=== PATIENT | female | born 1955 | race Caucasian/White ===

== ENCOUNTER 2019-02-14 21:21 | Outpatient (REF) | payer OTHER, SELFPAY ==
[2019-02-14 21:31] LABS: HCT 43.2 % (36.0-46.0); HGB 14.3 g/dL (12.0-15.5); Mean Corp. HGB Concentration 33.1 g/dL (32.0-36.0); Mean Corpuscular Hemoglobin 31.6 pg (27.0-33.0); Mean Corpuscular Volume 95.6 fL (80-95); Mean Platelet Volume 10.1 fL (8.0-11.0); Platelet Count 338 x1000/uL (130-400); RBC 4.52 m/cumm (4.00-5.20); RBC Distribution Width 11.9 % (11.7-14.6); White Blood Cell Count 5.58 k/cumm (4.4-10.8)
[2019-02-14 21:53] LABS: ALT 36 U/L (12-78); AST 23 U/L (15-37); Albumin 4.3 g/dL (3.4-5.0); Alkaline Phosphatase 87 U/L (46-116); Anion Gap 10.3 mmol/L (3-11); BUN 27 mg/dL (7-18); Bilirubin, Total 0.4 mg/dL (0.2-1.0); CO2 27.7 mmol/L (21.0-32.0); CREATININE 0.74 mg/dL (0.55-1.02); Calcium 9.4 mg/dL (8.5-10.1); Chloride 99 mmol/L (98-107); Glucose 98 mg/dL (70-100); Potassium 4.3 mmol/L (3.5-5.1); Sodium 137 mmol/L (136-145); TSH (W/Ref FT4) 0.04 uIU/mL (0.358-3.74); Total Protein 7.4 g/dL (6.4-8.2)
[2019-02-14 22:24] LABS: FREE T4 1.27 ng/dL (0.76-1.46)
[2019-02-14 22:39] LABS: Cholesterol 261 mg/dL (50-200); HDL Cholesterol 67 mg/dL (40-60); LDL CHOLESTEROL 154 mg/dL (<100); Triglyceride 149 mg/dL (30-150)
== END 2019-02-14 21:41 ==
LOC: NCHCN 21:21
PROVIDERS: PCP Family Medicine; Visit Provider Family Medicine
DX: Z00.00 Encounter for general adult medical examination without abnormal findings (principal); E03.9 Hypothyroidism, unspecified; M32.9 Systemic lupus erythematosus, unspecified
CPT/HCPCS: 80053; 80061; 83721; 85027; 84439; 84443

== ENCOUNTER 2019-02-23 00:41 | Outpatient (CLI) | payer OTHER, SELFPAY ==
--- NOTE | 2019-02-23 08:13 | DI.MAMMO_ITS ---
SYMPTOM/DIAGNOSIS: SCREENING, Z12.31, [facility], Z00.00 MAMMOGRAMS: Mammograms were interpreted according to the usual protocol including computer analysis with CAD system, tomosynthesis and C view imaging. The breasts are of moderate density with fairly symmetrical distribution of fibroglandular tissue. No dominant mass or clumped microcalcification is identified in either breast. The current examination is compared with previous examinations including 02/2017 and there has been no gross interval change in appearance in comparison with the previous studies. CONCLUSION: No specific evidence of malignancy at this time. Routine screening examinations are suggested at yearly intervals in this age group according to the ACS/ACR guidelines. Category 1. Breast density, Category B. MQSA ASSESSMENT OF FINDINGS: Negative. Category 1. Patient will receive a letter notifying them of these results. BI-RADS category B. There are scattered areas of fibroglandular density.
--- NOTE | 2019-02-23 08:20 | DI.CTLCSR_ITS ---
SYMPTOM/DIAGNOSIS: PREVENTATIVE, Z00.00, H/O SMOKER, Z78.[address]: CT examination of the chest was performed utilizing low dose lung cancer screening protocol. Images obtained through the upper abdomen show a prior cholecystectomy and unremarkable appearance of visualized portions of the liver, spleen, pancreas, adrenals and kidneys. No mediastinal or hilar adenopathy. An incidental 15 mm. in diameter left axillary lymph node is noted which is nonspecific. Tracheobronchial tree appears intact. The lungs are clear except for an elongated, intrapulmonary nodule associated with the minor fissure on the right which measures about 6 mm. in diameter on transaxial imaging. No additional nodule identified. No calcifications seen. No pleural effusion. CONCLUSION: Pleural based, non calcified intrapulmonary nodule associated with minor fissure on the right. Category 3, probably benign, 6 month follow LDCT recommended.
== END 2019-02-23 01:01 ==
PROVIDERS: PCP Family Medicine; Visit Provider Family Medicine
DX: Z12.2 Encounter for screening for malignant neoplasm of respiratory organs (principal); Z00.00 Encounter for general adult medical examination without abnormal findings; Z87.891 Personal history of nicotine dependence; R91.1 Solitary pulmonary nodule; R59.0 Localized enlarged lymph nodes; Z12.31 Encounter for screening mammogram for malignant neoplasm of breast
CPT/HCPCS: 77063; 77067; G0297

== ENCOUNTER 2019-08-17 12:21 | Outpatient (REF) | payer OTHER, SELFPAY ==
[2019-08-17 21:28] LABS: HCT 42.9 % (36.0-46.0); HGB 14.6 g/dL (12.0-15.5); Mean Corpuscular Hemoglobin 31.8 pg (27.0-33.0); Mean Corpuscular Volume 93.5 fL (80-95); Mean Platelet Volume 9.8 fL (8.0-11.0); Platelet Count 416 x1000/uL (130-400); RBC 4.59 m/cumm (4.00-5.20); RBC Distribution Width 11.9 % (11.7-14.6); White Blood Cell Count 5.59 k/cumm (4.4-10.8)
[2019-08-17 21:55] LABS: ALT 27 U/L (14-59); AST 16 U/L (15-37); Albumin 4.3 g/dL (3.4-5.0); Alkaline Phosphatase 73 U/L (46-116); Anion Gap 10.6 mmol/L (3-11); BUN 28 mg/dL (7-18); Bilirubin, Total 0.4 mg/dL (0.2-1.0); CO2 26.4 mmol/L (21.0-32.0); CREATININE 0.77 mg/dL (0.55-1.02); Calcium 9.5 mg/dL (8.5-10.1); Chloride 103 mmol/L (98-107); Glucose 92 mg/dL (70-100); Potassium 4.3 mmol/L (3.5-5.1); Sodium 140 mmol/L (136-145); TSH (W/Ref FT4) 0.01 uIU/mL (0.36-3.74); Total Protein 7.4 g/dL (6.4-8.2)
[2019-08-17 22:02] LABS: ESR 17 mm/hr (0-30)
[2019-08-17 22:31] LABS: FREE T4 1.67 ng/dL (0.76-1.46)
[2019-08-18 09:46] LABS: Vitamin B12 729 pg/mL (193-986)
[2019-08-19 22:29] LABS: Anaplasma phagocytophilum Negative (Negative); B. miyamotoi PCR Negative (Negative); Babesia divergens/MO-1 Negative (Negative); Babesia duncani Negative (Negative); Babesia microti Negative (Negative); Ehrlichia chaffeensis Negative (Negative); Ehrlichia ewingii/canis Negative (Negative); Ehrlichia muris eauclairensis Negative (Negative)
[2019-08-21 11:02] LABS: Lyme Ab w Rflx to Lyme Confirm Negative
== END 2019-08-17 12:41 ==
LOC: NCHCN 12:21
PROVIDERS: PCP Family Medicine; Visit Provider Family Medicine
DX: R20.2 Paresthesia of skin (principal); E03.9 Hypothyroidism, unspecified; M32.9 Systemic lupus erythematosus, unspecified
CPT/HCPCS: 80053; 85027; 85652; 87798; 82607; 83735; 84439; 84443; 86618

== ENCOUNTER 2020-07-10 04:05 | Outpatient (CLI) | payer OTHER, SELFPAY ==
[2020-07-10 10:30] LABS: Abs Immature Grans 0.01 10^3/uL (0.0-0.06); Absolute Basophil Count 0.07 10^3/uL (0.0-0.2); Absolute Eosinophil Count 0.11 10^3/uL (0.0-0.7); Absolute Lymphocyte Count 1.65 10^3/uL (1.2-3.4); Absolute Monocyte Count 0.53 10^3/uL (0.1-0.8); Absolute Neutrophil Count 4.31 10^3/uL (1.2-6.7); Eosinophils % 1.6; HGB 13.6 g/dL (11.2-15.7); Immature Grans % 0.1; Lymphocytes % 24.7; MCH 31.8 pg (27.0-33.0); MCHC 33.2 % (32.0-36.0); MCV 95.8 fL (80-95); MPV 9.7 fL (8.0-11.0); Monocytes % 7.9; Neutrophils % 64.7; Nucleated RBC 0 %; Platelet Count 370 10^3/uL (130-400); RBC 4.28 10^6/uL (3.93-5.22); RDW 12.1 % (11.7-14.6); RDW-SD 42.1 fL; WBC 6.68 10^3/uL (4.4-10.8)
[2020-07-10 11:22] LABS: ALT 23 U/L (14-59); AST 16 U/L (15-37); Alkaline Phosphatase 63 U/L (46-116); Anion Gap 7.8 mmol/L (3-11); BUN 24 mg/dL (7-18); Bilirubin, Total 0.3 mg/dL (0.2-1.0); CO2 28.2 mmol/L (21.0-32.0); Calcium 9.4 mg/dL (8.5-10.1); Chloride 103 mmol/L (98-107); Glucose 106 mg/dL (74-106); Potassium 4.5 mmol/L (3.5-5.1); Sodium 139 mmol/L (136-145); TSH (W/Ref FT4) 0.19 uIU/mL (0.36-3.74); Total Protein 6.8 g/dL (6.4-8.2)
[2020-07-10 11:49] LABS: FREE T4 1.65 ng/dL (0.76-1.46)
[2020-07-10 17:19] LABS: CRP, High Sensitivity 0.78 mg/L (See Note)
[2020-07-11 14:46] LABS: C-Reactive Protein 0.14 mg/dL (0.0-0.3)
[2020-07-11 21:29] LABS: Rheumatoid Factor <8.6 IU/mL (<12.0)
== END 2020-07-10 04:25 ==
PROVIDERS: PCP Family Medicine; Visit Provider Family Medicine
DX: E03.9 Hypothyroidism, unspecified (principal); R74.8 Abnormal levels of other serum enzymes; M32.9 Systemic lupus erythematosus, unspecified; M19.90 Unspecified osteoarthritis, unspecified site
CPT/HCPCS: 36415; 80053; 86141; 84439; 84443; 85025; 86140; 86431

== ENCOUNTER 2020-07-23 10:39 | Outpatient (REF) | payer SELFPAY ==
[2020-07-25 18:15] LABS: Patient Race White; SARS-CoV-2 RNA Undetected (Undetected); SARS-CoV-2 Specimen Source Nasal
== END 2020-07-23 10:59 ==
LOC: NCHCN 10:39
PROVIDERS: PCP Family Medicine; Visit Provider Family Medicine
DX: Z20.828 Contact with and (suspected) exposure to other viral communicable diseases (principal)
CPT/HCPCS: U0003

== ENCOUNTER 2020-12-05 12:15 | Outpatient (CLI) | payer OTHER, SELFPAY ==
--- NOTE | 2020-12-05 11:45 | DI.RAD_ITS ---
EXAM: XR HIP PELVIS ADULT BL CLINICAL HISTORY: bilateral hip pain. TECHNIQUE: 2D digital imaging was performed. COMPARISON: CR RIGHT HIP COMPLETE from 06/05/2013 CR RIGHT HIP COMPLETE from 06/05/2013 DX DEXA BONE DENSITY WITH VINNIE from 02/11/2016 FINDINGS: There is moderate to severe narrowing of the right hip joint space. There is moderate periarticular spurring. The findings have progressed when compared with previous exam. There is mild lateral subl uxation of the right femoral head with respect to the acetabulum. There is moderate narrowing of the left hip joint space and mild periarticular spurring. There are advanced degenerative changes in th e lower lumbar spine. IMPRESSION: Moderate severe degenerative changes of the right hip. Moderate degenerative changes of the left hip . DATA REPOSITORY: RADIATION DOSE DELIVERED:
== END 2020-12-05 12:16 | disposition home or self-care (01) ==
LOC: DIORS 12:15
PROVIDERS: PCP Family Medicine; Referring Provider Family Medicine; Visit Provider Student in an Organized Health Care Education/Training Program
DX: M16.0 Bilateral primary osteoarthritis of hip (principal)
CPT/HCPCS: 73521

== ENCOUNTER 2020-12-27 02:24 | Outpatient (CLI) | payer OTHER, SELFPAY ==
[2020-12-27 09:53] LABS: HCT 39.5 % (36.0-46.0); HGB 13.4 g/dL (11.2-15.7); MCH 32.3 pg (27.0-33.0); MCHC 33.9 % (32.0-36.0); MCV 95.2 fL (80-95); Platelet Count 339 10^3/uL (130-400); RBC 4.15 10^6/uL (3.93-5.22); RDW 12.3 % (11.7-14.6); RDW-SD 42.7 fL; WBC 7.09 10^3/uL (4.4-10.8)
[2020-12-27 10:22] LABS: Anion Gap 9.7 mmol/L (3-11); BUN 31 mg/dL (7-18); CO2 27.3 mmol/L (21.0-32.0); CREATININE 0.7 mg/dL (0.55-1.02); Calcium 8.8 mg/dL (8.5-10.1); Chloride 106 mmol/L (98-107); Glucose 93 mg/dL (74-106); Potassium 4.6 mmol/L (3.5-5.1); Sodium 143 mmol/L (136-145)
== END 2020-12-27 02:25 | disposition home or self-care (01) ==
LOC: LBO 02:25
PROVIDERS: PCP Family Medicine; Visit Provider Student in an Organized Health Care Education/Training Program
DX: M25.551 Pain in right hip (principal); M25.552 Pain in left hip; M16.0 Bilateral primary osteoarthritis of hip; Z01.818 Encounter for other preprocedural examination; Z01.812 Encounter for preprocedural laboratory examination
CPT/HCPCS: 36415; 80048; 85027; 86850; 86900; 86901

== ENCOUNTER 2020-12-27 11:16 | Outpatient (CLI) | payer OTHER, SELFPAY ==
--- NOTE | 2020-12-27 10:02 | DI.RAD_ITS ---
EXAM: XR PELVIS AP CLINICAL HISTORY: PRE OP R DENY. TECHNIQUE: 2D digital imaging was performed. COMPARISON: CR XR HIP PELVIS ADULT BL from 12/05/2020 FINDINGS: There again seen moderately severe degenerative changes of the right hip with narrowing of the joint space and periarticular spurring. [id number] degenerative changes are seen in the left hip. T he bones are intact and normally mineralized. IMPRESSION: Moderately severe osteoarthritis of the right hip. DATA REPOSITORY: RADIATION DOSE DELIVERED:
== END 2020-12-27 11:17 ==
LOC: DIORS 01-13 11:17
PROVIDERS: PCP Family Medicine; Visit Provider Physician Assistant
DX: M16.11 Unilateral primary osteoarthritis, right hip (principal)
CPT/HCPCS: 72170

== ENCOUNTER 2020-12-31 08:30 | Day surgery (SDC) | payer OTHER, SELFPAY ==
[2020-12-31] VITALS (7 sets, daily range): BP systolic 98–125; BP diastolic 48–75; PULSE 61–81; RESP 11–18; TEMP 36–36.9; O2SAT 98–99
--- NOTE | 2020-12-31 | DI.RAD_ITS ---
EXAM: RF FLUORO<1 HOUR CLINICAL HISTORY: L hip injection TECHNIQUE: 2D and realtime digital imaging was performed. CONTRAST MATERIAL: Water soluble contrast was administered. COMPARISON: No exams were available for comparison FINDINGS: Fluoroscopy was provided for Dr. Griffith during the performance of a left hip injection. Please re ama to the procedure report for complete details. Fluoro time: 48.8 seconds RADIATION DOSE DELIVERED:
--- NOTE | 2020-12-31 07:32 | W.PM.DS.N ---
Documented by User: Glenna Garcia 12/31/20 07:35 DS: Diagnosis Discharge Diagnosis (1) Osteoarthritis of left hip: Status: Chronic (2) Osteoarthritis of right hip: Status: Chronic Discharge Plan Disposition Patient Disposition: HOME Condition: Good Discharge Details Reason For Visit: Bilateral hip DJD Attending Provider: Samir Griffith Primary Care Provider: Shirley Nash V Home Meds and New Rx's Prescriptions: New celecoxib [Celebrex] 200 mg capsule 200 mg PO BID Qty: 30 RF: 0 aspirin 81 mg tablet,delayed release (DR/EC) 81 mg PO BID 30 Days Qty: 60 RF: 0 acetaminophen 500 mg tablet 500 mg PO Q6H PRN (Reason: pain) Qty: 60 RF: 2 pantoprazole 40 mg tablet,delayed release (DR/EC) 40 mg PO DAILY 30 Days Qty: 30 RF: 0 docusate sodium [Colace] 100 mg capsule 100 mg PO BID Qty: 30 RF: 0 oxycodone 5 mg tablet 5 mg PO Q6H PRN (Reason: severe post-operative pain) Qty: 12 RF: 0 Continued magnesium oxide 500 mg capsule 400 mg PO DAILY RF: 0 gabapentin [Neurontin] 600 MG tablet 600 mg PO DAILY RF: 0 venlafaxine [Effexor XR] 150 MG capsule,extended release 24hr 150 mg PO DAILY RF: 0 calcium carbonate-vitamin D3 1 EACH tablet 1 ea PO BID RF: 0 betamethasone valerate 15 GM cream 15 gm Topical BID PRN RF: 0 clotrimazole-betamethasone [Lotrisone] 45 GM cream 45 gm Topical BID PRN RF: 0 hydroxychloroquine [Plaquenil] 200 MG tablet 200 mg PO Twice Weekly Qty: 1 RF: 0 multivitamin 1 EACH capsule 1 ea PO DAILY RF: 0 gabapentin 600 MG tablet 1,200 mg PO HS Qty: 2 RF: 0 melatonin-pyridoxine HCl (B6) 1 EACH tablet,ext release multiphase 1 ea PO HS Qty: 1 RF: 0 Tumeric 1,000 mg DAILY RF: 0 estradiol [Vagifem] 10 MCG tablet 10 mcg VG HS twice weekly Qty: 24 RF: 5 polyethylene glycol 3350 [Miralax] 17 GM powder in packet 255 gm PO for colonoscopy Qty: 1 RF: 0 bisacodyl [Dulcolax (bisacodyl)] 5 MG tablet,delayed release (DR/EC) 5 mg PO ONCE Qty: 4 RF: 0 levothyroxine 125 mcg tablet 125 mcg PO DAILY RF: 0 diphenhydramine HCl [Benadryl] 25 mg Capsule 25 mg PO QHS PRNRF: 0 Discontinued ibuprofen 800 MG tablet 800 mg PO DAILY RF: 0 acetaminophen [Mapap Extra Strength] 500 MG tablet 2 tab PO PRN PRNRF: 0 No Action ibuprofen 200 mg Capsule 200 mg PO Q6H PRNRF: 0 docusate sodium [Colace] 100 mg Capsule 100 mg PO DAILY PRNRF: 0 Discharge Instructions Additional Instructions: Total Hip Discharge Instructions Activity: The most important activity is to walk. You should try to take short walks a few times a day. You have no restrictions on movement or positioning, but do not try to force what you do. You will find some stiffness and weakness with hip flexion (lifting your knee). Do not try to strengthen this too early, continue to practice walking and stairs and this will come. - Outpatient physical therapy can be helpful to help return you to a normal gait and improve your flexibility and strength. This can start around 2 weeks. For some patients, it?s not necessary. Usually this is determined at the time of discharge or at the first post-operative visit. - You should wear the HOMERO hose on both legs for 2 weeks. Dressing: Keep the surgical dressing in place for at least one week. After the first week it may be removed and replace with light gauze and tape or nothing. It may get wet after 3 days but avoid soaking the dressing. If it gets wet, just lightly pat dry. It is important to always keep some gauze between skin folds, especially when you are sitting. Spend some time with the wound exposed when you are lying flat as the incision does wrinkle onto itself. Medications: - You should take Tylenol and an anti-inflammatory Celebrex as your primary pain control medications. If the Celebrex is too expensive or not covered, please call the office for another alternative (Advil/Ibuprofen or Naproxen/Aleve). - You have been prescribed a stronger pain medication Oxycodone for breakthrough pain, take as needed as prescribed. - You have also been prescribed a stomach acid reduction agent Pantoprozole to help reduce stomach acid and reflux. - You will be taking Aspirin 81mg twice a day for DVT prevention unless instructed otherwise. - If you have constipation you should take Colace (which has been prescribed) or Miralax (which you may purchase [id number]). It takes most people 3-4 days to have a bowel movement. Follow-up: 2 weeks If you have any acute concerns or questions, please do not hesitate to contact the office at [phone]. You may contact Dr. Griffith with any questions after hours through the hospital at [phone] or on his cell phone at [phone]. Referrals: Samir Griffith MD [ [facility] STAFF PHYSICIAN] - Equipment/Supplies: Walker Activity:: Activity as Tolerated Remove Dressings/Wound Care:: Do Not Remove Shower/Bathe:: 72 hours Diet:: As Tolerated Discharge Orders Discharge Orders: Discharge Order (Routine); Ordered 12/31/20 Ordered By: Samir Griffith DS: Data Vitals/I&O Vitals and I&O: Vital Signs Oxygen Delivery Method Room Air 12/27/20 15:02 Oxygen Flow Rate 0 12/27/20 15:02 [facility] Medical History Depression Diverticular disease Elevated liver enzymes Facial rash GERD (gastroesophageal reflux disease) GLUTEN INTOLERANCE Avoiding gluten helps to lessen frequency of rashes and itchy symptoms Hypothyroidism Migraine Paresthesia of foot Right foot - felt like she was walking on ice which was elicited with going from working to walking around her office Patellofemoral chondrosis Sinusitis SLE (systemic lupus erythematosus related syndrome) Systemic lupus erythematosus Surgical History Breast, Lumpectomy Colonoscopy - IV Sedation (07/07/17) Colonoscopy - MAC (09/26/07) EGD - MAC (09/26/07) H/O: hysterectomy vaginal hysterectomy and bladder tuck Status post laparoscopic cholecystectomy Family History Mother Essential hypertension Hypercholesterolemia Multiple sclerosis Father Hypercholesterolemia Sister No problems noted. Sister No problems noted. Sister No problems noted. 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 Do you feel safe at home: Yes Do you feel safe in your relationship?: Yes Documented by User: Samir Griffith MD 12/31/20 14:11 Date of service: 12/31/20 Time of Service: 14:10 Discharge Plan Disposition Patient Disposition: HOME Condition: Good Discharge Details Reason For Visit: Bilateral hip DJD Attending Provider: Samir Griffith Primary Care Provider: Shirley Nash V Home Meds and New Rx's Prescriptions: New celecoxib [Celebrex] 200 mg capsule 200 mg PO BID Qty: 30 RF: 0 aspirin 81 mg tablet,delayed release (DR/EC) 81 mg PO BID 30 Days Qty: 60 RF: 0 acetaminophen 500 mg tablet 500 mg PO Q6H PRN (Reason: pain) Qty: 60 RF: 2 pantoprazole 40 mg tablet,delayed release (DR/EC) 40 mg PO DAILY 30 Days Qty: 30 RF: 0 docusate sodium [Colace] 100 mg capsule 100 mg PO BID Qty: 30 RF: 0 oxycodone 5 mg tablet 5 mg PO Q6H PRN (Reason: severe post-operative pain) Qty: 12 RF: 0 Continued magnesium oxide 500 mg capsule 400 mg PO DAILY RF: 0 gabapentin [Neurontin] 600 MG tablet 600 mg PO DAILY RF: 0 venlafaxine [Effexor XR] 150 MG capsule,extended release 24hr 150 mg PO DAILY RF: 0 calcium carbonate-vitamin D3 1 EACH tablet 1 ea PO BID RF: 0 betamethasone valerate 15 GM cream 15 gm Topical BID PRN RF: 0 clotrimazole-betamethasone [Lotrisone] 45 GM cream 45 gm Topical BID PRN RF: 0 hydroxychloroquine [Plaquenil] 200 MG tablet 200 mg PO Twice Weekly Qty: 1 RF: 0 multivitamin 1 EACH capsule 1 ea PO DAILY RF: 0 gabapentin 600 MG tablet 1,200 mg PO HS Qty: 2 RF: 0 melatonin-pyridoxine HCl (B6) 1 EACH tablet,ext release multiphase 1 ea PO HS Qty: 1 RF: 0 Tumeric 1,000 mg DAILY RF: 0 estradiol [Vagifem] 10 MCG tablet 10 mcg VG HS twice weekly Qty: 24 RF: 5 polyethylene glycol 3350 [Miralax] 17 GM powder in packet 255 gm PO for colonoscopy Qty: 1 RF: 0 bisacodyl [Dulcolax (bisacodyl)] 5 MG tablet,delayed release (DR/EC) 5 mg PO ONCE Qty: 4 RF: 0 levothyroxine 125 mcg tablet 125 mcg PO DAILY RF: 0 diphenhydramine HCl [Benadryl] 25 mg Capsule 25 mg PO QHS PRNRF: 0 Discontinued ibuprofen 800 MG tablet 800 mg PO DAILY RF: 0 acetaminophen [Mapap Extra Strength] 500 MG tablet 2 tab PO PRN PRNRF: 0 No Action ibuprofen 200 mg Capsule 200 mg PO Q6H PRNRF: 0 docusate sodium [Colace] 100 mg Capsule 100 mg PO DAILY PRNRF: 0 Discharge Instructions Additional Instructions: Total Hip Discharge Instructions Activity: The most important activity is to walk. You should try to take short walks a few times a day. You have no restrictions on movement or positioning, but do not try to force what you do. You will find some stiffness and weakness with hip flexion (lifting your knee). Do not try to strengthen this too early, continue to practice walking and stairs and this will come. - Outpatient physical therapy can be helpful to help return you to a normal gait and improve your flexibility and strength. This can start around 2 weeks. For some patients, it?s not necessary. Usually this is determined at the time of discharge or at the first post-operative visit. - You should wear the HOMERO hose on both legs for 2 weeks. Dressing: Keep the surgical dressing in place for at least one week. After the first week it may be removed and replace with light gauze and tape or nothing. It may get wet after 3 days but avoid soaking the dressing. If it gets wet, just lightly pat dry. It is important to always keep some gauze between skin folds, especially when you are sitting. Spend some time with the wound exposed when you are lying flat as the incision does wrinkle onto itself. Medications: - You should take Tylenol and an anti-inflammatory Celebrex as your primary pain control medications. If the Celebrex is too expensive or not covered, please call the office for another alternative (Advil/Ibuprofen or Naproxen/Aleve). - You have been prescribed a stronger pain medication Oxycodone for breakthrough pain, take as needed as prescribed. - You have also been prescribed a stomach acid reduction agent Pantoprozole to help reduce stomach acid and reflux. - You will be taking Aspirin 81mg twice a day for DVT prevention unless instructed otherwise. - If you have constipation you should take Colace (which has been prescribed) or Miralax (which you may purchase [id number]). It takes most people 3-4 days to have a bowel movement. Follow-up: 2 weeks If you have any acute concerns or questions, please do not hesitate to contact the office at [phone]. You may contact Dr. Griffith with any questions after hours through the hospital at [phone] or on his cell phone at [phone]. Referrals: Samir Griffith MD [ [facility] STAFF PHYSICIAN] - Equipment/Supplies: Walker Activity:: Activity as Tolerated Remove Dressings/Wound Care:: Do Not Remove Shower/Bathe:: 72 hours Diet:: As Tolerated Discharge Orders Discharge Orders: Discharge Order (Routine); Ordered 12/31/20 Ordered By: Samir Griffith DS: Summary Time Spent with Patient providing and/or coordinating discharge services: Less than 30 minutes Status at Discharge Functional status at discharge: uses cane/walker Overall status at discharge: patient is progressing back to baseline Mental Status: mental status grossly normal Speech and Movement: speech and movement normal Mood: congruent mood Affect: normal affect Exam Psych Mental Status: mental status grossly normal Speech and Movement: speech and movement normal Mood: congruent mood Affect: normal affect [facility] Medical History Depression Diverticular disease Elevated liver enzymes Facial rash GERD (gastroesophageal reflux disease) GLUTEN INTOLERANCE Avoiding gluten helps to lessen frequency of rashes and itchy symptoms Hypothyroidism Migraine Paresthesia of foot Right foot - felt like she was walking on ice which was elicited with going from working to walking around her office Patellofemoral chondrosis Sinusitis SLE (systemic lupus erythematosus related syndrome) Systemic lupus erythematosus Surgical History Breast, Lumpectomy Colonoscopy - IV Sedation (07/07/17) Colonoscopy - MAC (09/26/07) EGD - MAC (09/26/07) H/O: hysterectomy vaginal hysterectomy and bladder tuck Status post laparoscopic cholecystectomy Family History Mother Essential hypertension Hypercholesterolemia Multiple sclerosis Father Hypercholesterolemia Sister No problems noted. Sister No problems noted. Sister No problems noted. 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
[2020-12-31] MEDS: Acetaminophen 500 MG TAB 1000 MG PO (09:23)
[2020-12-31] MEDS: Celecoxib 200 MG CAP 400 MG PO (09:23)
[2020-12-31] MEDS: Lactated Ringers 1,000 ML 80 ML IV (10:01)
[2020-12-31] MEDS: ceFAZolin 2 GM/50 ML BAG IVPB (10:27)
--- NOTE | 2020-12-31 10:30 | DI.RAD_ITS ---
EXAM: OA OF RTHIP CLINICAL HISTORY: TECHNIQUE: 2D and realtime digital imaging was performed. CONTRAST MATERIAL: Refer to procedure report. COMPARISON: No exams were available for comparison FINDINGS: Fluoroscopy was provided for Dr. Griffith during the performance of a right total hip replacement. Please refer to the procedure report for complete details. Fluoro time: 48.8 seconds IMPRESSION:
[2020-12-31] MEDS: methylPREDNISolone ACETATE 80 MG/ML VIAL (10:32)
[2020-12-31] MEDS: Ketorolac 30 MG/ML VIAL (11:35)
[2020-12-31] MEDS: Bupivacaine 0.25% Pres-Free 30 ML VIAL (11:35)
[2020-12-31] MEDS: oxyCODONE 5 MG TAB PO (13:15)
--- NOTE | 2020-12-31 15:05 | IN_ITS ---
Date of service: 12/31/20 Time of Service: 15:05 PT Notes Visit Reasons: Bilateral hip DJD Physical Therapy Day Surgery Initial Evaluation Date: 12/31/2020 Referring Doctor: TARIQ Torres PT Orders: PT CONSULT: S/p Ortho surgery Precautions: WBAT on right LE. Patient Profile/Admitting Diagnosis: Giselle is a 65-year-old female with primary unilateral osteoarthritis of the right hip and status post right total hip arthroplasty and post 2-day 0. PMHX: Medical History (Updated 12/27/20 @ 08:22 by Glenna Garcia) Depression Diverticular disease Elevated liver enzymes Facial rash GERD (gastroesophageal reflux disease) GLUTEN INTOLERANCE Avoiding gluten helps to lessen frequency of rashes and itchy symptoms Hypothyroidism Migraine Paresthesia of foot Right foot - felt like she was walking on ice which was elicited with going from working to walking around her office Patellofemoral chondrosis Sinusitis SLE (systemic lupus erythematosus related syndrome) Systemic lupus erythematosus Surgical History (Updated 12/27/20 @ 08:22 by Glenna Garcia) Breast, Lumpectomy Colonoscopy - IV Sedation (07/07/17) Colonoscopy - MAC (09/26/07) EGD - MAC (09/26/07) H/O: hysterectomy Vaginal hysterectomy and bladder tuck Status post laparoscopic cholecystectomy Social History/Home Situation: Lives with in a private home with a half step to enter without rails. There is 1 step up to the kitchen and into the living room, rail on 1 side with each step. Independent with PLOF. Equipment Owned/DME: FWW, bilateral axillary crutches Subjective: Agreeable to PT consult. Complains of 3/10 pain in the right hip. Initially saw stars momentarily when knee part of bed was flattened. [place] a lot better with ambulation activity. Objective: General Observation: Supine in ICU stretcher. Cold pack on right hip. TEDS in B legs. Mental Status: Alert and oriented x4 Pain: 3/10 pain in the right hip ROM: Right Upper Extremity: Shoulder Flexion WFL. Shoulder abduction WFL. Elbow flexion WFL. Wrist flexion WFL. Functional opening and closing of hand WFL. Left Upper Extremity: Shoulder Flexion WFL. Shoulder abduction WFL. Elbow flexion WFL. Wrist flexion WFL. Functional opening and closing of hand WFL. Right Lower Extremity: Hip flexion lack the last 20 degrees of movement. Hip abduction WFL. Knee flexion WFL. Ankle dorsiflexion to neutral only. Ankle plantarflexion WFL. Left Lower Extremity: Hip flexion WFL. Hip abduction WFL. Knee flexion WFL. Ankle dorsiflexion WFL. Ankle plantarflexion WFL. Strength: Right Upper Extremity: Shoulder flexors 5/5. Shoulder abductors 5/5. Elbow flex ors 5/5. Elbow extensors 5/5. Health Director strong. Left Upper Extremity: Shoulder flexors 5/5. Shoulder abductors 5/5. Elbow flexors 5/5. Elbow extensors 5/5. Health Director strong. Right Lower Extremity: Hip flexors 3-/5. Hip abductors 4/5. Knee flexors 5/5. Knee extensors 4/5. Ankle dorsiflexors 3-/5. Ankle plantarflexors 5/5. Left Lower Extremity:Hip flexors 5/5. Hip abductors 5/5. Knee flexors 5/5. Knee extensors 5/5. Ankle dorsiflexors 3-/5. Ankle plantarflexors 5/5. Sensation: Intact in B LE as to pain and light touch. Bed Mobility/Transfers: Rolling standby assist Supine to sit standby assist with HOB at 30 degrees Sit to supine standby assist Sit to stand contact guard assist Stand to sit standby assist Bed to chair standby assist Gait: Guided patient with surface ambulation of 200 feet using front-wheeled walker with step-through heel-toe gait pattern requiring contact-guard assist of PT and standby assist of Nurse Vidal. Initially reported increase in pain in the right hip but symptoms eventually subsided later on in the activity. Denies lightheadedness, dizziness, chest pain, nor headache. Balance: Static Sitting: Normal Dynamic Sitting: Normal Static Standing: Fair Dynamic Standing: Fair Special Tests: Mobility Limitations Standardized Measure [facility] AM-PAC 6 clicks Basic Mobility Inpatient Short Form: Raw Score: 20 CMS Score: 36% deficit Informed Consent/Education: Patient instructed in purpose of PT consult. Packet containing R DENY exercise protocol has been given to patient. Education and training on initial set of exercises that can be done at home have been completed with patient. Assessment: Mariano requires the use of a front wheeled walker for all mobility ADL performance to maximize independence and reduce fall risk at home. She will benefit from OP PT services to regain premorbid independent level. Patient presents with clinical signs and symptoms consistent with current/admitting diagnoses that have resulted to mobility limitations, gait instability, generalized weakness, and impairment of motor control as demonstrated by the following impairment level findings: 1. Decreased strength to right hip major muscle groups 2. Impaired standing balance 3. Limitation of joint range of motion in right hip Impairments are contributing to the following functional limitations: 1. Inability to safely ambulate without assistive device 2. Increased completion time for mobility ADL performance 3. Increased fall risk Patient is assessed as a [id number] moderate complexity based on the following: History: 65-year-old female with impairment level findings, functional limitations, and past medical history as indicated above Examination: Demonstrable impairment in strength, balance, and mobility level with underlying impairments and functional limitations as documented above Presentation: Evolving Decision Makin moderate Goals: N/A. PT evaluation and 1-2 treatment sessions only for functional mobility training using recommended AD and for HEP instruction. Plan of Care/Treatment Plan: N/A. PT evaluation and 1-2 treatment session only for functional mobility training using recommended AD and for HEP instruction. PT INTERVENTION RECEIVED TODAY: Assessment for and fitting of appropriate assistive device. Guided patient through bed mobility, transfers, and mobility ADL performance on level surfaces and stairs using front wheeled walker and single crutch in order to reduce fall risk. Educated and trained patient on HEP performance to maximize post-surgical functional outcomes. Education on the use of cryotherapy. DISCHARGE RECOMMENDATIONS: Home when medically cleared by orthopedic surgeon. Outpatient PT services to facilitate return to independent community ambulation without an assistive device. TREATMENT CODE/TIME: 9716 2 x 25 minutes, 9753 0 x 39 minutes beginning at 14:08 PM and 15:05 PM. Thank you for the opportunity to participate in the care of this patient. Tiffany Sanz PT, DPT, CLT [facility] [place], [place]
--- NOTE | 2020-12-31 18:10 | W.PM.OP ---
Date of service: 12/31/20 Time of Service: 11:37 Operative Note Operative Note DATE OF PROCEDURE: 12/31/20 PRE-OP DIAGNOSIS: Right and Left Hip Osteoarthritis POST-OP DIAGNOSIS: same PROCEDURE: Right Anterior Total Hip Arthroplasty and left intra-articular hip injection SURGEON: Samir Griffith BAR ASSISTANT: Glenna Garcia ANESTHESIA TYPE: Spinal Refer to Anesthesia Record ESTIMATED BLOOD LOSS: 250 PATHOLOGY: none sent TOURNIQUET TIME: 0 COMPLICATIONS: None Patient was transported to: PACU Patient's condition: stable Implants: 1. Depuy [place] Acetabular Component, 48mm 2. Depuy Acetabular Liner, [id number] 3. Depuy Corail Standard Collared Femoral Stem, Size 11 4. Depuy Altrx Ceramic Femoral Head, Size 32+5mm Indications: I have seen Giselle in clinic for symptoms of hip arthritis, confirmed with radiographic findings. She has exhausted nonoperative methods and was having significant limitations in daily function and desired better function and less pain. Given that the right hip was the most problematic she desired to proceed with a right hip replacement and a left hip injection. I discussed the technical details of a hip replacement. I explained the risks of the procedure to include, but not limited to, bleeding, infection, pain, stiffness, fracture, damage to nerves and vessels, damage to muscles and tendons, loosening, instability, leg length inequality, need for repeat procedure, blood clot and cardiopulmonary demise. Despite these risks, [NAME] elected to proceed. Findings: There was significant signs of arthritis throughout the hip of both the acetabulum and the femoral head. Procedure Description: Giselle was greeted in the preoperative holding area where the correct side was identified and marked. The consent was reviewed with the patient and signed. The history and physical was updated. All questions were answered. She was taken back to the operating room. A spinal anesthestic was then administered. The feet were wrapped with cast padding and Coban and then placed into the boot liners and then into the boots. Care was taken to protect the skin and make sure the heels were fully down and the boots were stable. The patient was then positioned onto the HANA table. Both legs were held in a neutral position. SCDs were applied. The patient was then slid down onto a peroneal post. Prophylactic antibiotics in the form of cefazolin were administered. 1g of Tranxemic Acid was given intravenously within 30 minutes of incision. A timeout to confirm correct identity, side and site, procedure, allergies, anesthesia, and medical concerns was performed. The left hip was first prepped with alcohol and an intra-articular injection was performed. C-arm fluoroscopy was utilized to identify the hip joint and direct the needle into the appropriate positioning. Once was resting is the femoral head, if confirmed with x-ray, I was able to inject 8 cc of 0.5% bupivacaine along with 80 mg of Depo-Medrol without difficulty. The right leg was then prepped with Chloraprep and draped in a standard fashion. A second prep with Chloraprep was performed prior to placement of a shower-curtain type drape with Iodine impregnated skin protection. An obliquely oriented incision was made starting lateral to the ASIS and running distal over the Tensor Fascia Eugenia (TFL) muscle belly toward the fibular head, approximately 10cm. The skin and soft tissue was dissected sharply, through Jhonatan?s fascia, and to the fascia of the TFL. With the fascia and superior border of the IT band identified, the fascia was incised with a new knife just above any perforators from the IT band. The TFL muscle belly was bluntly dissected away from the fascia and moved laterally. The fat between TFL and rectus was identified to ensure the dissection was not within the TFL. Blunt dissection created space between abductors and the capsule and retractor was placed over the lateral femoral neck. The fibers of the rectus femoris tendon were identified and these were freed from the anterior capsule. A second cobra retractor was placed around the medial femoral neck. The TFL was further retracted laterally to show the deep fascia. Careful dissection through this layer identified three main crossing vessels of the lateral femoral circumflex. These were cauterized in multiple locations and then cut without any noticeable bleeding. The TFL was further released bluntly from the deep fascia to expose anterior hip capsule and fat the Brandon orthopaedic retractor was then placed beneath the TFL and against sartorius and medial soft tissues to protect and retract the soft tissues. A T-capsulotomy was then performed starting at the superior lateral acetabulum and moving distally to the intertrochanteric ridge. These capsular flaps were tagged with a No. 1 Ethibond and elevated from within. The capsular flaps were released to the shoulder of the lateral neck and to the lesser trochanter to give excellent visualization of the proximal femur. A neck osteotomy was performed using an oscillating saw based on preoperative templates. This cut started in the shoulder and of the lateral neck and exited medially. The saw was at all times directed medially to avoid injury to the greater trochanter. Gross traction was applied to the leg and the osteotomy opened. The femoral head was removed with a corkscrew, making sure to protect the TFL on its exit. Traction was released after head removal. This was measured on the back table to determine the starting reamer size. Portions of the rectus obscuring visualization were minimally elevated off the superior acetabulum. An anterior retractor was placed over the anterior wall between capsule and labrum and attached to the Gripper retraction system. The femur was rotated to 90 degrees and medial capsule was fully released until the lesser trochanter was palpable and visible; the femur was returned to 30 degrees. A posterior retractor was placed similarly between capsule and labrum. This provided excellent visualization. The contents of the cotyloid fossa were removed with electrocautery and the labrum was removed with a knife. There was a notable floor osteophyte. There was significant chondromalacia of the superior acetabulum. Acetabular reaming began with a 44 mm reamer. This first reaming was directed anterior to posterior and medial to get down to the true floor. This was inspected and reamed until the true floor was reached. The anterior retractor was then released and entry and exit was provided by traction on the capsular flaps. I then reamed sequentially up to a 48mm reamer where good fit was obtained. The larger reamers were oriented based on anatomical reference of the anterior and lateral ivan to ensure proper abduction and anteversion. Positioning and size was confirmed with the fluoroscopy. A 48 mm Depuy [place] acetabular component was selected. The acetabulum was reamed around the periphery with the selected acetabular size to prevent a rim fit. The deep tissues were irrigated. The acetabular component was then impacted in a position of about 40-45 degrees of abduction and 15-20 degrees of anteversion, using the patient?s anatomy as the ultimate landmark. Fluoroscopy was used to confirm this. There was excellent manager endoscopy of the acetabular component and the inserting handle was removed. The acetabular liner, Depuy 48x32 mm polyethylene liner, was inserted and lined up with the tines of the acetabular component. There was no soft tissue interposition. The liner was then impacted into position and confirmed to be well-seated. A portion of the jose-articular cocktail was then injected around the acetabulum into the capsule and periosteum. This cocktail consisted of 50cc of 0.25% Bupivicaine and 20cc of Exparel and 30mg of Ketorolac. The leg was rotated to 120 degrees. Any remaining medial capsule was released until the lesser trochanter was easily palpable. A retractor was placed medially. The lateral capsule was further released into the shoulder to allow access to the greater trochanter. A Fagan retractor was placed over the greater trochanter which allowed the trochanter to flip in front of the capsule for excellent exposure. The leg was brought down into maximal extension and 20 degrees of adduction while ensuring there was no impingement on the acetabulum. Any remnant capsule within the trochanter was released. Piriformis and obturator externis were identified and protected. There was excellent access to the proximal femur. The lateral neck remnant was removed with a rongeur. A blunt canal probe was used to identify the canal and trajectory for later broaching. A box osteotome initiated the broach course. A small curved rasp and a curved curette were used to work laterally. Broaching then began with a size 8 Corail broach. This was inserted manually around the trochanter and into the canal before mallet blows. The broach was seated to the neck cut level based on the neck cut and the preoperative template. Sequential broaching was continued with the ArtSetterscise pneumatic broaching device until a tight fit was obtained with good rotational control of the femur. A trial standard 125 degree neck was inserted along with a +5 trial head. The leg was brought out of extension and adduction and then reduced with traction and internal rotation. The leg was stable anteriorly in a position of 30 degrees of extension and 90 degrees of external rotation. Fluoroscopy was used to ensure there was no fracture and the stem was seated well. Leg lengths were checked with an AP pelvis and pelvic reference points. [employer] navigation system was used to confirm appropriate positioning and leg length and offset. This seemed to generate too much excess leg length but the right amount of offset. I dislocated the hip and brought him back into position of extension and maximal external rotation. Unfortunately, this point the stem was tightly fitting into the femoral canal and would not advance the necessary 3 to 4 mm appropriately reproduce the leg length. Therefore, I went back down in size broaching up and still was unable to advance the 12 broach. Therefore, I placed an 11 broach in plane the cut surface down to the broach surface. The leg was then brought back up and reduced. It was noted to be stable during stability testing. Joint point navigation was once again utilized and showed that a standard neck with a +5 head appropriately added 2 mm of leg length and the right amount, 0 mm, of offset. Once content with the desired offset and leg lengths, the leg was brought back into extension, external rotation and adduction. The periosteum and surrounding tissue was injected with remaining portion of the jose-articular cocktail. The proximal femur was irrigated as well as the deep tissues. The Depuy Corail standard collared stem, size 11, was then manually inserted into the proximal femur making sure to control rotation. It was then malleted into position with light blows, giving breaks to allow bone expansion and decrease risk of fracture. The selected Depuy Altrx Ceramic Head, size 32+5 mm, was then placed onto the clean and dry trunnion and secured with impaction onto the tapered fit. The leg was brought back out of extension and adduction and reduced with traction and internal rotation. Stability was confirmed with no shuck at 90 degrees of external rotation and 30 degrees of extension. No impingement through range of motion arc. Final x-ray images were obtained with fluoroscopy to confirm adequate positioning and no intraoperative fracture. The deep tissues were thoroughly irrigated with Irrisept chlorhexadine solution. The second dose of TXA 1g was administered intravenously. The capsule was then reapproximated with the previously placed Ethibond sutures. The TFL fascia was finally closed with a No. 2 Stratafix, barbed suture. Deep tissues were then reapproximated with 0 Vicryl and a running 2-0 Vicryl. The skin was closed with a running 4-0 Monocryl in a subcuticular fashion. This was reinforced with skin glue. A Mepilex silver dressing was applied. At the end of the case, all counts were correct. Giselle was transferred to the hospital bed without difficulty and suffering no apparent complication. She has a good prognosis. Physical therapy will start today and without restrictions, weight-bearing as tolerated. Aspirin 81mg BID will be used for DVT prophylaxis.
== END 2020-12-31 15:55 | disposition home or self-care (01) ==
LOC: SUR 12:54
PROVIDERS: PCP Family Medicine; Visit Provider Student in an Organized Health Care Education/Training Program
PROC: (CPT 27130; principal; 2020-12-31 10:00)
PROC: (CPT 27130; 2020-12-31 10:00)
DX: M16.0 Bilateral primary osteoarthritis of hip (principal); G43.909 Migraine, unspecified, not intractable, without status migrainosus; E03.9 Hypothyroidism, unspecified
CPT/HCPCS: 27130; 20985; 20610; 76000; 97162; 97530; NC; 73501; J0690; J1040; J1100; J1885; J2250; J2370; J2405; J2704

== ENCOUNTER 2021-01-16 13:16 | Outpatient (CLI) | payer OTHER, SELFPAY ==
--- NOTE | 2021-01-16 10:30 | DI.RAD_ITS ---
EXAM: XR HIP RT COMPLETE AP PELVIS CLINICAL HISTORY: 1ST POST OP RIGHT TOTAL HIP REPLACEMENT. TECHNIQUE: 2D digital imaging was performed. COMPARISON: CR XR PELVIS AP from 12/27/2020 FINDINGS: Position alignment of the components of the right hip prosthesis are satisfactory. No fracture or lo osening. No radiographic evidence of osteomyelitis. There are moderate degenerative changes in the opposite-left hip. IMPRESSION: DATA REPOSITORY: RADIATION DOSE DELIVERED:
== END 2021-01-16 13:17 | disposition home or self-care (01) ==
LOC: DIORS 13:16
PROVIDERS: PCP Family Medicine; Referring Provider Family Medicine; Visit Provider Student in an Organized Health Care Education/Training Program
DX: Z96.641 Presence of right artificial hip joint (principal); Z47.1 Aftercare following joint replacement surgery; M16.12 Unilateral primary osteoarthritis, left hip
CPT/HCPCS: 73502

== ENCOUNTER 2021-10-14 16:32 | Outpatient (REF) | payer OTHER, SELFPAY ==
[2021-10-14 21:38] LABS: FREE T4 1.14 ng/dL (0.76-1.46)
== END 2021-10-14 16:33 | disposition home or self-care (01) ==
LOC: NCHCN 16:32
PROVIDERS: PCP Family Medicine; Visit Provider Family Medicine
DX: E03.9 Hypothyroidism, unspecified (principal)
CPT/HCPCS: 84439

== ENCOUNTER 2021-10-24 01:59 | Outpatient (CLI) | payer OTHER, SELFPAY ==
[2021-10-24 10:29] LABS: Source Nasal/Nares
[2021-10-24 16:48] LABS: COVID-19 PCR Negative (Negative)
== END 2021-10-24 02:00 | disposition home or self-care (01) ==
PROVIDERS: PCP Family Medicine; Visit Provider Ophthalmology
DX: Z20.822 Contact with and (suspected) exposure to COVID-19 (principal); Z01.818 Encounter for other preprocedural examination
CPT/HCPCS: 87635

== ENCOUNTER 2021-10-27 06:29 | Day surgery (SDC) | payer MEDICARE, SELFPAY ==
[2021-10-27 06:43] VITALS: BP 111/53; PULSE 73; RESP 16; TEMP 36.5; O2SAT 98
[2021-10-27] MEDS: Tropicam./Phenyleph. (1/2.5%) 5 ML BTL OD ×3 (06:55→07:05)
--- NOTE | 2021-10-27 07:11 | W.ANESPRE ---
General Info Date of Service Date Performed: 10/27/21 Height: 5 ft 3 in Weight: 73.5 kg Body Mass Index (BMI): 28.7 Surgical Procedure: Operation Date: 10/27/21 07:40 Proposed Procedures Side Surgeon p Cataract Extraction with IOL Implant Right Leonel Eaton MD Pre-Op Diagnosis Post-Op Diagnosis cataract right Meds Allergies and Home Medications Allergies Allergy/AdvReac Type Severity Reaction Status Date / Time chlorhexidine Allergy Intermediate Skin Rash Unverified 10/22/21 11:25 gluten Allergy Unknown Unverified 10/22/21 11:25 SCALLOPS AdvReac Severe N/V & Uncoded 10/22/21 11:25 DIARRHEA Home Medication Medication Instructions Recorded betamethasone valerate 15 g TOPICAL BID PRN script 08/01/13 calcium carbonate-vitamin D3 1 ea PO BID 08/01/13 clotrimazole-betamethasone 45 g TOPICAL BID PRN 08/01/13 [Lotrisone] gabapentin [Neurontin] 600 mg PO DAILY tab-cap 08/01/13 hydroxychloroquine [Plaquenil] 200 mg PO Twice Weekly #1 tab-cap 08/01/13 multivitamin 1 ea PO DAILY 08/01/13 venlafaxine [Effexor XR] 150 mg PO DAILY tab-cap 08/01/13 Tumeric 1,000 mg DAILY 12/17/15 gabapentin 1,200 mg PO HS #2 12/17/15 melatonin-pyridoxine HCl (B6) 1 ea PO HS #1 12/17/15 levothyroxine 125 mcg tablet 125 mcg PO DAILY tab-cap 12/05/20 diphenhydramine HCl [Benadryl] 25 mg PO QHS PRN 12/27/20 magnesium oxide 500 mg capsule 400 mg PO DAILY cap 12/27/20 acetaminophen 500 mg PO Q6H PRN #60 tab 12/31/20 ibuprofen 200 mg PO Q6H PRN 12/31/20 Current Visit Medications: Current Medications Generic Name Dose Route Start Last Admin Trade Name Freq PRN Reason Stop Dose Admin Acetaminophen 1,000 mg 10/27/21 06:00 Acetaminophen 500 Mg Tab PO Q4H PRN PRN Miscellaneous Medication 0 ml 10/27/21 06:00 Prednisolone 1%, Moxifloxacin 0.5%, Nepafenac 0.1% 5ml Btl OD DIRECTED JENNIFER Miscellaneous Medication 0 ml 10/27/21 06:00 10/27/21 07:05 Tropicam./Phenyleph. (1/2.5%) 5 Ml Btl OD 1 drp DIRECTED JENNIFER Administration Tetracaine HCl 0 ml 10/27/21 06:00 Tetracaine 0.5% 4 Ml Btl OD DIRECTED JENNIFER PFSH Active Problems Active Problems: Problem Status Onset Code History of total right hip replacement Z96.641 Hypothyroidism E03.9 Osteoarthritis of left hip M16.12 Osteoarthritis of right hip M16.11 Medical History Medical History Depression Diverticular disease Elevated liver enzymes Facial rash GERD (gastroesophageal reflux disease) GLUTEN INTOLERANCE Avoiding gluten helps to lessen frequency of rashes and itchy symptoms Hypothyroidism Migraine Paresthesia of foot Right foot - felt like she was walking on ice which was elicited with going from working to walking around her office Patellofemoral chondrosis Sinusitis SLE (systemic lupus erythematosus related syndrome) Systemic lupus erythematosus Surgical History Surgical History Breast, Lumpectomy Colonoscopy - IV Sedation (07/07/17) Colonoscopy - MAC (09/26/07) EGD - MAC (09/26/07) H/O: hysterectomy vaginal hysterectomy and bladder tuck History of total right hip replacement Status post laparoscopic cholecystectomy Tobacco Smoking/Tobacco Use Status: Former Tobacco Use Alcohol Alcohol Intake: current Alcohol intake frequency: a few times a month Substance Use Substance use: Never Substance use type: does not use Vital Signs and Lab Results Vital Signs Most Recent Vital Signs in EMR: Most Recent Vital Signs Temp Pulse Resp BP Pulse Ox 36.5 C 73 16 111/53 L 98 10/27/21 06:43 10/27/21 06:43 10/27/21 06:43 10/27/21 06:43 10/27/21 06:43 Lab Results Blood Type / Crossmatch: No Data to Display Complete Blood Count: No Data to Display Complete Metabolic Panel: No Data to Display Liver Function Panel: No Data to Display Coagulation Panel: No Data to Display Cardiac Panel: No Data to Display Arterial Blood Gas: No Data to Display Venous Blood Gas: No Data to Display Pancreas Panel: No Data to Display Thyroid Panel: No Data to Display Infectious Disease: Coronavirus (COVID-19)(PCR) Negative (Negative) 10/24/21 09:50 10/24/21 Coronavirus 2019 Source Nasal/Nares 10/24/21 09:50 10/24/21 Blood Cultures: No Data to Display Toxicology Panel: No Data to Display Anesthesia Assessment and Plan Anesthesia History Personal History: No History of Anesthesia Complications Family History: No Family History of Anesthesia Complications Exercise Tolerance Exercise Tolerance: Metabolic Equivalents>4 Pertinent Negatives Pertinent Negatives: No Symptoms of GERD Cardiac & Pulmonary Exam Cardiac Exam: Normal S1/S2 Heart Sounds Pulmonary Exam: Clear Bilateral Breath Sounds Implantable Cardiac Device Does patient have a Pacemaker or an ICD?: No Airway Exam Known Difficult Airway: No Mallampati Class: 2 Mouth Opening: Normal (> 3cm) Thyromental Distance: Greater than 3 cm Neck Range of Motion: Full ROM Neck Circumference: Normal Teeth Condition: Normal Dentition ASA Classification ASA Score: ASA 3 Emergency Case?: No NPO Status NPO Status: NPO Clears >2 hours, Solids >8 hours Anesthesia Plan Resuscitation Status: Full Code Anesthesia Technique: MAC Anesthesia Airway Planned: Natural Airway Monitors Used: Standard Monitors
[2021-10-27 07:12] VITALS: BMI 28.7
[2021-10-27] MEDS: Balanced Salt Soln.-PLUS 500 ML BAG (07:37)
[2021-10-27] MEDS: Lidocaine 2% Jelly 6 ML SYR (07:38)
[2021-10-27] MEDS: Povidone-Iodine Ophth 30 ML BTL (07:39)
[2021-10-27] MEDS: Duovisc Viscoelastic System EACH 1 EACH (07:40)
[2021-10-27] MEDS: Tetracaine 0.5% 4 ML BTL OD (07:42)
[2021-10-27 07:59] VITALS: BP 109/61; PULSE 70; RESP 16; TEMP 36; O2SAT 96
--- NOTE | 2021-10-27 08:02 | W.PM.DSUDISC ---
Discharge Plan Disposition Patient Disposition: HOME Condition: Good Discharge Details Attending Provider: Leonel Eaton Primary Care Provider: Shirley Nash V Home Meds and New Rx's Prescriptions: No Action magnesium oxide 500 mg capsule 400 mg PO DAILY RF: 0 gabapentin [Neurontin] 600 MG tablet 600 mg PO DAILY RF: 0 venlafaxine [Effexor XR] 150 MG capsule,extended release 24hr 150 mg PO DAILY RF: 0 calcium carbonate-vitamin D3 1 EACH tablet 1 ea PO BID RF: 0 betamethasone valerate 15 GM cream 15 g Topical BID PRN RF: 0 clotrimazole-betamethasone [Lotrisone] 45 GM cream 45 g Topical BID PRN RF: 0 hydroxychloroquine [Plaquenil] 200 MG tablet 200 mg PO Twice Weekly Qty: 1 RF: 0 multivitamin 1 EACH capsule 1 ea PO DAILY RF: 0 gabapentin 600 MG tablet 1,200 mg PO HS Qty: 2 RF: 0 melatonin-pyridoxine HCl (B6) 1 EACH tablet,ext release multiphase 1 ea PO HS Qty: 1 RF: 0 Tumeric 1,000 mg DAILY RF: 0 levothyroxine 125 mcg tablet 125 mcg PO DAILY RF: 0 diphenhydramine HCl [Benadryl] 25 mg Capsule 25 mg PO QHS PRNRF: 0 acetaminophen 500 mg tablet 500 mg PO Q6H PRN (Reason: pain) Qty: 60 RF: 2 ibuprofen 200 mg Capsule 200 mg PO Q6H PRNRF: 0 Discharge Instructions Stand Alone Forms: Post-op Topical Cataract, Asia Bradley (DSU) Discharge Orders Discharge Orders: Discharge Order (Routine); Ordered 10/27/21 Ordered By: Leonel Eaton DS: Diagnosis Discharge Diagnosis (1) Cortical cataract of left eye: Status: Resolved (2) Nuclear sclerotic cataract of right eye: Status: Resolved (3) Posterior subcapsular age-related cataract, right eye: Status: Resolved
--- NOTE | 2021-10-27 08:04 | ROE_ITS ---
Date of service: 10/27/21 Time of Service: 08:04 Operative Note Operative Note DATE OF PROCEDURE: 10/27/21 PRE-OP DIAGNOSIS: Nuclear/cortical/posterior subcapsular cataract, right eye POST-OP DIAGNOSIS: same PROCEDURE: Cataract extraction using phacoemulsification with intraocular lens implant, right eye SURGEON: Leonel Eaton ANESTHESIA TYPE: Local By Surgeon and MAC Refer to Anesthesia Record ESTIMATED BLOOD LOSS: 0 PATHOLOGY: none sent COMPLICATIONS: None Patient was transported to: same day Patient's condition: stable Implants: Bruce [employer] Bruce/BELLA Tecnis [id number] Indications: Progressive visual loss due to cataract, right eye Procedure Description: CATARACT SURGERY OPERATIVE REPORT PREOPERATIVE DIAGNOSIS: 1. Nuclear/cortical/posterior subcapsular cataract, right eye POSTOPERATIVE DIAGNOSIS: Same OPERATION: 1. Cataract extraction using phacoemulsification with posterior chamber intraocular lens implant, right eye. IOL: IOL Hand Developer/Model: Bruce & Bruce / BELLA Tecnis [id number] IOL Power: + 21.5 diopters IOL Serial Number: [id number] Optic Diameter: 6.0mm Haptic/Overall Diameter: 13.0mm PHACO INFO: Rico mSpoturion Vision System with OZil and Active Fluidics Cumulative Dispersed Energy (CDE): 2.11 seconds SURGEON: Leonel Eaton MD, BRIANA ANESTHESIA: Monitored Anesthesia Care (MAC), with local sub-tenon's anesthetic infiltration COMPLICATIONS: None SPECIMENS: None INDICATIONS FOR PROCEDURE: The patient is a 66-year-old lady with history of diminished visual acuity in both eyes secondary to the development of bilateral cataract. She is significantly symptomatic that she desires cataract surgery and attempt to improve and maximize her vision. PROCEDURE: The correct surgical eye was identified and marked as the right eye and the pupil was dilated in the preoperative area using mydriatics and cycloplegics. The dilated pupil size was 7.0 mm. Oral sedation was administered in the form of an Imprimis MKO Melt (midazolam 3mg/ketamine 25mg/ondansetron 2mg). The patient was brought to the operating room where cardiopulmonary monitoring was instituted and surgical time-out was performed, confirming the correct operative eye and IOL power. Topical anesthesia was administered and ophthalmic povidone-iodine 5% was instilled into the conjunctival fornices. Lidocaine gel was applied to the cornea and the jose-ocular area was prepped with Betadine 10% solution and draped in the usual sterile fashion for intraocular surgery, including an aperture drape. A Tegaderm transparent film dressing was cut in half and used to cover the lashes and lid margins. Care was taken to sequester the lashes and lid margins under the Tegaderm dressing. A lid speculum was placed between the lids of the operative eye and the Rahul-Amadna operating microscope was maneuvered into position. Olimpia scissors were then used to make a conjunctival buttonhole approximately 6mm posterior to the limbus in the inferonasal quadrant. Blunt dissection was carried out to expose bare sclera, and a blunt-tipped sub-tenon?s anesthesia cannula was introduced and passed posteriorly along the globe where non- preserved plain lidocaine was injected into posterior sub-Tenon?s space. A sideport knife was used to make a paracentesis port inferotemporally. Intraocular phenylephrine/lidocaine was injected into the anterior chamber. The anterior chamber was filled with viscoelastic. A 2.4mm keratome knife was used to create a half-thickness groove at the limbus and then to construct a three- plane near-clear corneal tunnel extending 2.0mm into clear cornea superiortemporally. A flap was raised on the anterior capsule and capsulorhexis forceps were used to complete a continuous curvilinear capsulorhexis of 5.0 mm. Balanced salt solution was then used to perform cortical cleaving hydrodissection and nuclear hydrodelineation until the lens could be freely rotated within the capsular bag. The lens nucleus was then disassembled and removed within the capsular bag and iris plane using phacoemulsification. Residual cortical material was removed using the I/A handpiece. The posterior capsule was carefully polished to remove as much residual lens epithelial cells as safely possible. The capsular bag was then inflated and the anterior chamber deepened with viscoelastic. The lens implant described above was inserted into the capsular bag using the BELLA [place] [employer] [place] Injector. A Kuglen hook was used to dial the IOL into position. Residual viscoelastic was then removed first from posterior to the IOL, then from the anterior chamber using the I/A handpiece. The lens implant was noted to center nicely within the capsular bag. The incisions were stromally hydrated, and the anterior chamber was reformed using BSS. Then 0.5cc of moxifloxacin 1.0mg/ml were injected into the capsular bag and anterior chamber. The incisions were checked with a Weck spear and found to be secure. Several drops of ophthalmic povidone-iodine 5% were then applied to the eye followed by two drops of Imprimis combination prednisolone/moxifloxacin/nepafenac solution. The drapes were removed and a clear plastic protective eye shield was placed over the eye. The patient was then returned to [facility] Day Surgery in stable condition.
--- NOTE | 2021-10-27 08:05 | W.ANESPOSTOP ---
Postoperative Evaluation Date, Time and Location Date Performed: 10/27/21 Time Performed: 08:05 Patient Location: Day Surgery Unit Vital Signs Most Recent Imported Vital Signs: Most Recent Vital Signs Temp Pulse Resp BP Pulse Ox 36.0 C L 70 16 109/61 96 10/27/21 07:59 10/27/21 07:59 10/27/21 07:59 10/27/21 07:59 10/27/21 07:59 Pain Score Most Recent Pain Score: Most Recent Pain Score Pain Level 0 10/27/21 07:59 Assessment Mental Status: Awake (Alert & Oriented to Patient Baseline) Airway and Respiratory Function: Patent airway with normal (patient baseline) respiratory exam Cardiovascular Function: Hemodynamically Stable Hydration Status: Adequately Hydrated Nausea & Vomiting: No Nausea or Vomiting Pain: Pt. Denies Any Pain Peripheral Nerve Block: Patient did not receive a nerve block
[2021-10-27 08:30] VITALS: BP 119/57; PULSE 58; RESP 16; TEMP 36.4; O2SAT 100
== END 2021-10-27 08:47 | disposition home or self-care (01) ==
PROVIDERS: PCP Family Medicine; Visit Provider Ophthalmology
PROC: (CPT 66984; principal; 2021-10-27 07:30)
DX: H25.041 Posterior subcapsular polar age-related cataract, right eye (principal); M32.9 Systemic lupus erythematosus, unspecified; K21.9 Gastro-esophageal reflux disease without esophagitis; E03.9 Hypothyroidism, unspecified
CPT/HCPCS: 66984; V2632

== ENCOUNTER 2021-11-07 03:42 | Outpatient (CLI) | payer MEDICARE, SELFPAY ==
[2021-11-07 14:38] LABS: Source Nasal/Nares
[2021-11-07 18:34] LABS: COVID-19 PCR Negative (Negative)
== END 2021-11-07 03:43 | disposition home or self-care (01) ==
PROVIDERS: PCP Family Medicine; Visit Provider Ophthalmology
DX: Z20.822 Contact with and (suspected) exposure to COVID-19 (principal); Z01.818 Encounter for other preprocedural examination
CPT/HCPCS: 87635

== ENCOUNTER 2021-11-10 06:32 | Day surgery (SDC) | payer MEDICARE, SELFPAY ==
[2021-11-10] MEDS: Tropicam./Phenyleph. (1/2.5%) 5 ML BTL OS ×3 (06:47→07:00)
[2021-11-10 06:56] VITALS: BP 116/75; PULSE 83; RESP 16; TEMP 36.7; O2SAT 97
--- NOTE | 2021-11-10 07:08 | W.ANESPRE ---
General Info Date of Service Date Performed: 11/10/21 Height: 5 ft 3 in Weight: 72.4 kg Body Mass Index (BMI): 28.3 Surgical Procedure: Operation Date: 11/10/21 07:40 Proposed Procedures Side Surgeon p Cataract Extraction with IOL Implant Left Leonel Eaton MD Meds Allergies and Home Medications Allergies Allergy/AdvReac Type Severity Reaction Status Date / Time chlorhexidine Allergy Intermediate Skin Rash Unverified 11/10/21 06:48 gluten Allergy Unknown Unverified 11/10/21 06:48 SCALLOPS AdvReac Severe N/V & Uncoded 11/10/21 06:48 DIARRHEA Home Medication Medication Instructions Recorded betamethasone valerate 15 g TOPICAL BID PRN script 08/01/13 calcium carbonate-vitamin D3 1 ea PO BID 08/01/13 clotrimazole-betamethasone 45 g TOPICAL BID PRN 08/01/13 [Lotrisone] gabapentin [Neurontin] 600 mg PO DAILY tab-cap 08/01/13 hydroxychloroquine [Plaquenil] 200 mg PO Twice Weekly #1 tab-cap 08/01/13 multivitamin 1 ea PO DAILY 08/01/13 venlafaxine [Effexor XR] 150 mg PO DAILY tab-cap 08/01/13 Tumeric 1,000 mg DAILY 12/17/15 gabapentin 1,200 mg PO HS #2 12/17/15 melatonin-pyridoxine HCl (B6) 1 ea PO HS #1 12/17/15 levothyroxine 125 mcg tablet 125 mcg PO DAILY tab-cap 12/05/20 diphenhydramine HCl [Benadryl] 25 mg PO QHS PRN 12/27/20 magnesium oxide 500 mg capsule 400 mg PO DAILY cap 12/27/20 acetaminophen 500 mg PO Q6H PRN #60 tab 12/31/20 ibuprofen 200 mg PO Q6H PRN 12/31/20 Current Visit Medications: Current Medications Generic Name Dose Route Start Last Admin Trade Name Freq PRN Reason Stop Dose Admin Acetaminophen 1,000 mg 11/10/21 06:00 Acetaminophen 500 Mg Tab PO Q4H PRN PRN Miscellaneous Medication 0 ml 11/10/21 06:00 Prednisolone 1%, Moxifloxacin 0.5%, Nepafenac 0.1% 5ml Btl OS DIRECTED JENNIFER Miscellaneous Medication 0 ml 11/10/21 06:00 11/10/21 07:00 Tropicam./Phenyleph. (1/2.5%) 5 Ml Btl OS 1 drp DIRECTED JENNIFER Administration Tetracaine HCl 0 ml 11/10/21 06:00 Tetracaine 0.5% 4 Ml Btl OS DIRECTED JENNIFER PFSH Active Problems Active Problems: Problem Status Onset Code Osteoarthritis of right hip M16.11 Osteoarthritis of left hip M16.12 Hypothyroidism E03.9 History of total right hip replacement Z96.641 Cortical cataract of left eye H26.9 Nuclear sclerotic cataract of right eye H25.11 Posterior subcapsular age-related cataract, right eye H25.041 Medical History Medical History (Updated 11/10/21 @ 06:48 by Janice Lake) Depression Diverticular disease Elevated liver enzymes Facial rash GERD (gastroesophageal reflux disease) GLUTEN INTOLERANCE Avoiding gluten helps to lessen frequency of rashes and itchy symptoms Hx of cataract Migraine Paresthesia of foot Right foot - felt like she was walking on ice which was elicited with going from working to walking around her office Patellofemoral chondrosis Sinusitis SLE (systemic lupus erythematosus related syndrome) Systemic lupus erythematosus Surgical History Surgical History Breast, Lumpectomy Colonoscopy - IV Sedation (07/07/17) Colonoscopy - MAC (09/26/07) EGD - MAC (09/26/07) H/O: hysterectomy vaginal hysterectomy and bladder tuck Status post laparoscopic cholecystectomy Tobacco Smoking/Tobacco Use Status: Former Tobacco Use Alcohol Alcohol Intake: current Alcohol intake frequency: a few times a month Substance Use Substance use: Never Substance use type: does not use Vital Signs and Lab Results Vital Signs Most Recent Vital Signs in EMR: Most Recent Vital Signs Temp Pulse Resp BP Pulse Ox 36.7 C 83 16 116/75 97 11/10/21 06:56 11/10/21 06:56 11/10/21 06:56 11/10/21 06:56 11/10/21 06:56 Lab Results Blood Type / Crossmatch: No Data to Display Complete Blood Count: No Data to Display Complete Metabolic Panel: No Data to Display Liver Function Panel: No Data to Display Coagulation Panel: No Data to Display Cardiac Panel: No Data to Display Arterial Blood Gas: No Data to Display Venous Blood Gas: No Data to Display Pancreas Panel: No Data to Display Thyroid Panel: No Data to Display Infectious Disease: Coronavirus (COVID-19)(PCR) Negative (Negative) 11/07/21 10:23 11/07/21 Coronavirus 2019 Source Nasal/Nares 11/07/21 10:23 11/07/21 Blood Cultures: No Data to Display Toxicology Panel: No Data to Display Anesthesia Assessment and Plan Anesthesia History Personal History: No History of Anesthesia Complications Family History: No Family History of Anesthesia Complications Exercise Tolerance Exercise Tolerance: Metabolic Equivalents>4 Pertinent Negatives Pertinent Negatives: No Symptoms of GERD, No Major Cardiovascular Symptoms or Complaints, No Major Pulmonary Symptoms or Complaints and No History of CVA/TIA Cardiac & Pulmonary Exam Cardiac Exam: Normal S1/S2 Heart Sounds Pulmonary Exam: Clear Bilateral Breath Sounds Implantable Cardiac Device Does patient have a Pacemaker or an ICD?: No Airway Exam Known Difficult Airway: No Mallampati Class: 2 Mouth Opening: Normal (> 3cm) Thyromental Distance: Greater than 3 cm Neck Range of Motion: Full ROM Neck Circumference: Normal Teeth Condition: Normal Dentition ASA Classification ASA Score: ASA 2 Emergency Case?: No NPO Status NPO Status: NPO Clears >2 hours, Solids >8 hours Anesthesia Plan Resuscitation Status: Full Code Anesthesia Technique: MAC Anesthesia Airway Planned: Natural Airway Monitors Used: Standard Monitors
[2021-11-10 07:09] VITALS: BMI 28.3
[2021-11-10] MEDS: Balanced Salt Soln.-PLUS 500 ML BAG (07:38)
[2021-11-10] MEDS: Lidocaine 2% Jelly 6 ML SYR (07:38)
[2021-11-10] MEDS: Povidone-Iodine Ophth 30 ML BTL (07:38)
[2021-11-10] MEDS: Duovisc Viscoelastic System EACH 1 EACH (07:39)
[2021-11-10] MEDS: Tetracaine 0.5% 4 ML BTL OS (07:40)
--- NOTE | 2021-11-10 07:54 | W.PM.DSUDISC ---
Discharge Plan Disposition Patient Disposition: HOME Condition: Good Discharge Details Attending Provider: Leonel Eaton Primary Care Provider: Shirley Nash V Home Meds and New Rx's Prescriptions: No Action magnesium oxide 500 mg capsule 400 mg PO DAILY RF: 0 gabapentin [Neurontin] 600 MG tablet 600 mg PO DAILY RF: 0 venlafaxine [Effexor XR] 150 MG capsule,extended release 24hr 150 mg PO DAILY RF: 0 calcium carbonate-vitamin D3 1 EACH tablet 1 ea PO BID RF: 0 betamethasone valerate 15 GM cream 15 g Topical BID PRN RF: 0 clotrimazole-betamethasone [Lotrisone] 45 GM cream 45 g Topical BID PRN RF: 0 hydroxychloroquine [Plaquenil] 200 MG tablet 200 mg PO Twice Weekly Qty: 1 RF: 0 multivitamin 1 EACH capsule 1 ea PO DAILY RF: 0 gabapentin 600 MG tablet 1,200 mg PO HS Qty: 2 RF: 0 melatonin-pyridoxine HCl (B6) 1 EACH tablet,ext release multiphase 1 ea PO HS Qty: 1 RF: 0 Tumeric 1,000 mg DAILY RF: 0 levothyroxine 125 mcg tablet 125 mcg PO DAILY RF: 0 diphenhydramine HCl [Benadryl] 25 mg Capsule 25 mg PO QHS PRNRF: 0 acetaminophen 500 mg tablet 500 mg PO Q6H PRN (Reason: pain) Qty: 60 RF: 2 ibuprofen 200 mg Capsule 200 mg PO Q6H PRNRF: 0 Discharge Instructions Stand Alone Forms: Post-op Topical Cataract, Asia Bradley (DSU) Discharge Orders Discharge Orders: Discharge Order (Routine); Ordered 11/10/21 Ordered By: Leonel Eaton DS: Diagnosis Discharge Diagnosis (1) Cortical cataract of left eye: Status: Resolved (2) Nuclear sclerotic cataract of left eye: Status: Resolved (3) Posterior subcapsular age-related cataract of left eye: Status: Resolved
[2021-11-10 07:56] VITALS: BP 112/70; PULSE 73; RESP 16; TEMP 36.2; O2SAT 97
--- NOTE | 2021-11-10 07:57 | ROE_ITS ---
Date of service: 11/10/21 Time of Service: 07:57 Operative Note Operative Note DATE OF PROCEDURE: 11/10/21 PRE-OP DIAGNOSIS: Nuclear/cortical/posterior subcapsular cataract, left eye POST-OP DIAGNOSIS: same PROCEDURE: Cataract extraction using phacoemulsification with intraocular lens implant, left eye SURGEON: Leonel Eaton ANESTHESIA TYPE: Local By Surgeon and MAC Refer to Anesthesia Record PATHOLOGY: none sent COMPLICATIONS: None Patient was transported to: same day Patient's condition: stable Implants: Bruce [employer] Bruce / [employer] Tecnis [id number] Indications: Progressive decreased vision due to cataract, left eye Procedure Description: CATARACT SURGERY OPERATIVE REPORT PREOPERATIVE DIAGNOSIS: 1. Nuclear/cortical/posterior subcapsular cataract, left eye POSTOPERATIVE DIAGNOSIS: Same OPERATION: 1. Cataract extraction using phacoemulsification with posterior chamber intraocular lens implant, left eye. IOL: IOL Hospice Office Coordinator/Model: [employer] Bruce / BELLA Tecnis [id number] IOL Power: + 21.0 diopters IOL Serial Number: [id number] Optic Diameter: 6.0 mm Haptic/Overall Diameter: 13.0 mm PHACO INFO: Rico [employer]urion Vision System with OZil and Active Fluidics Cumulative Dispersed Energy (CDE): 3.87 seconds SURGEON: Leonel Eaton MD, BRIANA ANESTHESIA: Monitored A [facility] (MAC), with local sub-tenon's anesthetic infiltration COMPLICATIONS: None SPECIMENS: None INDICATIONS FOR PROCEDURE: Patient is a 66-year-old lady with history of diminished visual acuity in both eyes secondary to the development of bilateral cataracts. She has already undergone cataract surgery in the right eye and is doing well postoperatively. She now presents for cataract surgery in the left eye. PROCEDURE: The correct surgical eye was identified and marked as the left eye and the pupil was dilated in the preoperative area using mydriatics and cycloplegics. The dilated pupil size was 7.0 mm. Elected to proceed oral sedation. The patient was brought to the operating room where cardiopulmonary monitoring was instituted and surgical time-out was performed, confirming the correct operative eye and IOL power. Topical anesthesia was administered and ophthalmic povidone-iodine 5% was instilled into the conjunctival fornices. Lidocaine gel was applied to the cornea and the jose-ocular area was prepped with Betadine 10% solution and draped in the usual sterile fashion for intraocular surgery, including an aperture drape. A Tegaderm transparent film dressing was cut in half and used to cover the lashes and lid margins. Care was taken to sequester the lashes and lid margins under the Tegaderm dressing. A lid speculum was placed between the lids of the operative eye and the Rahul-Amanda operating microscope was maneuvered into position. Olimpia scissors were then used to make a conjunctival buttonhole approximately 6mm posterior to the limbus in the inferonasal quadrant. Blunt dissection was carried out to expose bare sclera, and a blunt-tipped sub-tenon?s anesthesia cannula was introduced and passed posteriorly along the globe where non- preserved plain lidocaine was injected into posterior sub-Tenon?s space. A sideport knife was used to make a paracentesis port superiorly/superiortemporally. Intraocular phenylephrine/lidocaine was injected int the anterior chamber.. The anterior chamber was filled with viscoelastic. A 2.4mm keratome knife was used to create a half-thickness groove at the limbus and then to construct a three-plane near-clear corneal tunnel extending 2.0mm into clear cornea at the 3:00 position. A flap was raised on the anterior capsule and capsulorhexis forceps were used to complete a continuous curvilinear capsulorhexis of 5.5 mm. Balanced salt solution was then used to perform cortical cleaving hydrodissection and nuclear hydrodelineation until the lens could be freely rotated within the capsular bag. The lens nucleus was then disassembled and removed within the capsular bag and iris plane using phacoemulsification. Residual cortical material was removed using the 45-degree angled silicone I/A tip with 0.3mm port. The posterior capsule was carefully polished to remove as much residual lens epithelial cells as safely possible. The capsular bag was then inflated and the anterior chamber deepened with viscoelastic. The lens implant described above was inserted into the capsular bag using the BELLA [employer] Injector. A Kuglen hook was used to dial the IOL into position. Residual viscoelastic was then removed first from posterior to the IOL, then from the anterior chamber using the I/A handpiece. The lens implant was noted to center nicely within the capsular bag. The incisions were stromally hydrated, and the anterior chamber was reformed using BSS. Then 0.5cc of moxifloxacin 1.0mg/ml were injected into the capsular bag and anterior chamber. The incisions were checked with a Weck spear and found to be secure. Several drops of ophthalmic povidone-iodine 5% were then applied to the eye followed by two drops of Imprimis combination prednisolone/moxifloxacin/nepafenac solution. The drapes were removed and a clear plastic protective eye shield was placed over the eye. The patient was then returned to Same Day Surgery in stable condition.
--- NOTE | 2021-11-10 07:59 | W.ANESPOSTOP ---
Postoperative Evaluation Date, Time and Location Date Performed: 11/10/21 Time Performed: 07:59 Patient Location: Day Surgery Unit Vital Signs Most Recent Imported Vital Signs: Most Recent Vital Signs Temp Pulse Resp BP Pulse Ox 36.7 C 83 16 116/75 97 11/10/21 06:56 11/10/21 06:56 11/10/21 06:56 11/10/21 06:56 11/10/21 06:56 Most Recent Manually Entered Vital Signs: Adult Blood Pressure: 112/70 Heart Rate: 73 Respirations: 16 Oxygen Saturation (%): 97 Temperature (C): 36.2 C Pain Score (0-10 Scale): 0 Pain Score Most Recent Pain Score: Most Recent Pain Score Pain Level 0 11/10/21 06:56 Assessment Mental Status: Awake (Alert & Oriented to Patient Baseline) Airway and Respiratory Function: Patent airway with normal (patient baseline) respiratory exam Cardiovascular Function: Hemodynamically Stable Hydration Status: Adequately Hydrated Nausea & Vomiting: No Nausea or Vomiting Pain: Pt. Denies Any Pain Peripheral Nerve Block: Patient did not receive a nerve block
[2021-11-10 08:01] VITALS: BP 112/70; PULSE 73; RESP 16; TEMPC 36.2; O2SAT 97
== END 2021-11-10 08:25 | disposition home or self-care (01) ==
PROVIDERS: PCP Family Medicine; Visit Provider Ophthalmology
PROC: (CPT 66984; principal; 2021-11-10 07:30)
DX: H25.042 Posterior subcapsular polar age-related cataract, left eye (principal); K21.9 Gastro-esophageal reflux disease without esophagitis; F32.9 Major depressive disorder, single episode, unspecified; M32.9 Systemic lupus erythematosus, unspecified
CPT/HCPCS: 66984; V2632

== ENCOUNTER 2021-12-03 00:36 | Outpatient (CLI) | payer MEDICARE, SELFPAY ==
--- NOTE | 2021-12-03 | DI.CTLCSR_ITS ---
Exam(s) CT CHEST LUNG CANCER SCREEN EXAM: CT CHEST LUNG CANCER SCREEN CLINICAL HISTORY: SCREENING FOR LUNG CA, FORMER SMOKER, Z87.891. TECHNIQUE: Imaging Protocol: Low Dose Technique CONTRAST MATERIAL: None COMPARISON: CT CT CHEST LUNG CANCER SCREEN from 02/23/2019 FINDINGS: CHEST: LUNGS: There are no new ominous pulmonary nodules. The previously described solitary 6-7 millimeter n odule in the right lung at the junction of the right upper and right middle lobes remains unchanged f rom February 2019. No new nodules evident. Mild increased markings in the inferior lingular segment of t he left lung are also unchanged from 2019. no pleural effusions. MEDIASTINUM: There is no obvious hilar nor mediastinal adenopathy. CARDIAC: Heart size is normal. There is no pericardial effusion.Caliber of the thoracic aorta is wit hin normal limits. OTHER: Gallbladder is noted to be surgically absent OSSEOUS: No significant osseous lesions.. IMPRESSION: 1. Stable benign-appearing solitary nodule in the right lung at what is most probably the pleural ref lection between the right upper and right middle lobes, this unchanged from February 2019. No new nodules . Also stable appearance of mild increased benign-appearing markings in the lingular segment of the left lung. 2. No pleural effusions nor intrathoracic adenopathy. 3. Lung RADS Cat 2 - Benign Appearance / Behavior: Nodules with a very low likelihood of becoming a c linically active cancer due to size or lack of growth Continue yearly screening LDCT Lung-RADS 1.0 CATEGORIES: Category 0 - Prior chest CT exam(s) being located for comparison. Category 1 - Annual screening in 12 months. No nodules or definitely benign nodules. Category 2 - Annual screening in 12 months. Benign appearance. Nodules with low likelihood of becomin g active cancer. Category 3 - 6-month follow-up. Probably benign. Short-term follow-up suggested. Nodules with low lik elihood of becoming active cancer. Category 4A - 3-month follow-up and CT/PET if >8 mm in size. Suspicious finding. Findings which requi re additional testing. Category 4B - Findings which require additional testing and tissue sampling. Category 4X - Category 3 or 4 nodules with additional features or imaging findings that increases the suspicion of malignancy. Modifier S- Potentially clinically significant findings (non lung cancer) RADIATION DOSE DELIVERED: 72.27mGy.cm Total DLP CTDIvol DATA REPOSITORY: All CT scans at this facility are submitted to the National Radiology Data Registry (NRDR) Dose Index Registry (DIR) with the [employer] ([employer]). RADIATION OPTIMIZATION: All CT scans at this facility use at least one of these dose optimization te chniques: automated exposure control; mA and/or kV adjustment per patient size (includes targeted exa ms where dose is matched to clinical indication); or iterative reconstruction.
--- NOTE | 2021-12-03 | DI.MAMMO_ITS ---
Exam(s) MAMMO SCREENING EXAM: MAMMO SCREENING CLINICAL HISTORY: SCREENING,Z12.89. TECHNIQUE: Bilateral full field digital CC and MLO mammographic images were obtained with 3D tomosyn thesis and utilizing computer aided detection (CAD). COMPARISON: Prior mammograms were reviewed, the most recent being February 2019. FINDINGS: There are no new spiculated masses nor malignant appearing microcalcification groups. Asymmetric density in the right breast on CC view located 8 cm in from the nipple has benign appearan ce imaging. There is no significant architectural distortion nor skin thickening-retraction. IMPRESSION: No radiographic evidence of malignancy. BI-RADS Category 2 - Benign Findings Breast Density - Category B - Scattered areas of fibroglandular density Breast density Category C or D implies that the patient has dense breast tissue. Dense breast tissue can make it harder to find cancer on a mammogram. Dense breast tissue is also associated with an incr eased risk of breast cancer. This information about the result of the mammogram report was provided to the patient to raise their awareness. Use this report when you speak with the patient about their risks for breast cancer, which includes their family history. At that time, you may recommend additional screening tests (Ultrasoun d or MRI) as these tests may add significant information. A negative radiographic report should not delay biopsy if a dominant or clinically suspicious mass is present. Up to ten percent of cancers are not identified on mammography. A negative report may reinforce clinical impression. Adenosis and dense breasts may obscure an underlying neoplasm. False positive reports average 6 to 10%. Patient will receive a letter notifying them of these results.
== END 2021-12-03 00:56 ==
PROVIDERS: PCP Family Medicine; Visit Provider Family Medicine
DX: Z12.31 Encounter for screening mammogram for malignant neoplasm of breast (principal); Z12.2 Encounter for screening for malignant neoplasm of respiratory organs; Z87.891 Personal history of nicotine dependence; R91.1 Solitary pulmonary nodule
CPT/HCPCS: 71271; 77063; 77067

== ENCOUNTER 2022-01-05 09:26 | Outpatient (CLI) | payer MEDICARE, SELFPAY ==
--- NOTE | 2022-01-05 09:00 | DI.RAD_ITS ---
Exam(s) XR HIP RT AP LAT ONLY EXAM: XR HIP RT AP LAT ONLY INDICATION: ANNUAL F/U R DENY. COMPARISON: CR XR HIP RT COMPLETE AP PELVIS from 01/16/2021 TECHNIQUE: 2D digital imaging was performed. FINDINGS: There has been no change in the right hip prosthesis or appearance of the surrounding bone. No new abnormalities. DATA REPOSITORY: RADIATION DOSE DELIVERED:
== END 2022-01-05 09:27 | disposition home or self-care (01) ==
LOC: DIORS 09:26
PROVIDERS: PCP Family Medicine; Visit Provider Student in an Organized Health Care Education/Training Program
DX: M16.11 Unilateral primary osteoarthritis, right hip (principal)
CPT/HCPCS: 99212; 73502

== ENCOUNTER 2022-10-15 13:19 | Outpatient (REF) | payer MEDICARE, SELFPAY ==
[2022-10-15 16:09] LABS: ALT 43 U/L (14-59); AST 35 U/L (15-37); Albumin 4.1 g/dL (3.4-5.0); Alkaline Phosphatase 76 U/L (46-116); Anion Gap 6.8 mmol/L (3-11); BUN 32 mg/dL (7-18); Bilirubin, Total 0.3 mg/dL (0.2-1.0); CO2 29.2 mmol/L (21.0-32.0); CREATININE 0.8 mg/dL (0.55-1.02); Calcium 9.1 mg/dL (8.5-10.1); Calculated LDL 156 mg/dL (<100); Chloride 104 mmol/L (98-107); Cholesterol 257 mg/dL (<200); Estimated GFR 79.71 (mL/min/1.73m2); Glucose 99 mg/dL (74-106); HDL Cholesterol 79 mg/dL (40-60); Potassium 4.2 mmol/L (3.5-5.1); Sodium 140 mmol/L (136-145); TSH (W/Ref FT4) 0.95 uIU/mL (0.36-3.74); Total Protein 7.6 g/dL (6.4-8.2); Triglyceride 113 mg/dL (<150)
== END 2022-10-15 13:20 | disposition home or self-care (01) ==
LOC: NCHCN 13:19
PROVIDERS: PCP Family Medicine; Visit Provider Family Medicine
DX: E03.9 Hypothyroidism, unspecified (principal); M32.9 Systemic lupus erythematosus, unspecified; Z00.00 Encounter for general adult medical examination without abnormal findings
CPT/HCPCS: 80053; 80061; 84443

== ENCOUNTER 2022-11-23 02:18 | Outpatient (CLI) | payer MEDICARE, SELFPAY ==
--- NOTE | 2022-11-23 | DI.MRI_ITS ---
Exam(s) MR BRAIN WO/W EXAM: MR BRAIN WO/W CLINICAL HISTORY: PARESTHESIA OF FOOT, R20.2, MIGRAINE, G43.909 TECHNIQUE: Multiplanar multisequence MRI of the brain was performed. CONTRAST MATERIAL: IV Contrast: 14 mL of Dotarem contrast administered. COMPARISON: No exams were available for comparison FINDINGS: VENTRICLES AND EXTRA AXIAL SPACES: Normal in size and morphology for the patient's age. HEMORRHAGE: None. CEREBRAL PARENCHYMA: No focus of restricted diffusion to suggest acute infarct. No space-occupying le manjit identified. There are scattered areas of hyperintense signal seen in the white matter on the FLA IR and T2 weighted images. MIDLINE SHIFT: None. BRAINSTEM/CEREBELLUM: Normal. CALVARIUM: Normal. ENHANCEMENT: No suspicious enhancement identified. VISUALIZED PARANASAL SINUSES/MASTOIDS: Clear. PAMUNKEY OF BURCH: Normal flow void. PITUITARY GLAND: Unremarkable. OTHER FINDINGS: IMPRESSION: 1. No evidence of an acute infarct or enhancing mass. 2. Scattered foci of hyperintense signal seen in the white matter on the FLAIR and T2 weighted images . Differential considerations include chronic microvascular ischemic disease, demyelinating process, migraine or trauma. DATA REPOSITORY:
[2022-11-23] MEDS: Normal Saline Flush 10 ML SYR IVP (10:30)
[2022-11-23] MEDS: Gadoterate meglumine 20 ML VIAL 14 ML IVP (10:30)
== END 2022-11-23 02:38 ==
LOC: DI 02:19
PROVIDERS: PCP Family Medicine; Visit Provider Family Medicine
DX: R20.2 Paresthesia of skin (principal); G43.909 Migraine, unspecified, not intractable, without status migrainosus; I67.89 Other cerebrovascular disease
CPT/HCPCS: 70553

== ENCOUNTER 2023-01-08 00:05 | Outpatient (CLI) | payer MEDICARE, SELFPAY ==
--- NOTE | 2023-01-08 | DI.MAMMO_ITS ---
Exam(s) MAMMO SCREENING EXAM: MAMMO SCREENING CLINICAL HISTORY: SCREENING, Z12.39 TECHNIQUE: Bilateral full field digital CC and MLO mammographic images were obtained with 3D tomosyn thesis and utilizing computer aided detection (CAD). COMPARISON: Available for comparison. FINDINGS: Masses/Architectural Distortion: None seen. Microcalcifications: No suspicious pleomorphic-type are seen. Skin Thickening/Nipple Retraction: None. IMPRESSION: 1. No significant interval change with no specific features of malignancy noted. 2. Unless there is more urgent need, screening mammography is recommended, as per [employer] guidelines. BI-RADS Category 1 - Negative Breast Density - Category B - Scattered areas of fibroglandular density Breast density category C or D implies that the patient has dense breast tissue. Dense breast tissue is very common and is not abnormal but dense breast tissue can make it harder to find cancer on a ma mmogram. Also, dense breast tissue may increase their breast cancer risk. This information about the result of the mammogram report was provided to the patient to raise their awareness. Use this report when you speak with the patient about their risks for breast cancer, which includes their family hist ory. At that time, you may recommend for more screening tests (Ultrasound or MRI) as they might be us eful based on their risk. A negative radiographic report should not delay biopsy if a dominant or clinically suspicious mass is present. Up to ten percent of cancers are not identified on mammography. A negative report may reinforce clinical impression. Adenosis and dense breasts may obscure an underlying neoplasm. False positive reports average 6 to 10%. Patient will receive a letter notifying them of these results.
--- NOTE | 2023-01-08 | DI.DEXA_ITS ---
Exam(s) XR DEXA BONE DENSITY W/WO VINNIE EXAM: XR DEXA BONE DENSITY W/WO VINNIE CLINICAL HISTORY: SCREENING FOR OSTEOPOROSISIN POSTMENOPAUSAL WOMAN,Z78.0 TECHNIQUE: COMPARISON: Comparison is 02/11/2016. FINDINGS: Lateral Spine Image: Unremarkable. No compression deformities identified. Left hip: Total T-Score: -1.5. This compares to -1.4 on the prior examination. Total Z-Score: -0.1 T- and Z-scores: Findings are consistent with osteopenia. Lumbar Spine: Total T-Score: -0.5. This compares to -0.3 on the prior examination. Total Z-Score: 1.6 T- and Z-scores: Within normal limits. IMPRESSION: No evidence of osteoporosis.
== END 2023-01-08 00:25 ==
LOC: DI 00:06
PROVIDERS: PCP Family Medicine; Visit Provider Family Medicine
DX: Z12.31 Encounter for screening mammogram for malignant neoplasm of breast (principal); Z78.0 Asymptomatic menopausal state; M85.88 Other specified disorders of bone density and structure, other site
CPT/HCPCS: 77063; 77067; 77080

== ENCOUNTER 2023-01-19 16:28 | Outpatient (REF) | payer MEDICARE, SELFPAY ==
[2023-01-19 16:10] LABS: ESR 5 mm/hr (0-30)
[2023-01-19 17:51] LABS: Creatine Kinase 66 U/L (26-192)
[2023-01-19 17:52] LABS: C-Reactive Protein < 0.05 mg/dL (0.0-0.3)
== END 2023-01-19 16:29 | disposition home or self-care (01) ==
LOC: NCHCN 16:28
PROVIDERS: PCP Family Medicine; Visit Provider Family Medicine
DX: R06.09 Other forms of dyspnea (principal); M32.9 Systemic lupus erythematosus, unspecified
CPT/HCPCS: 82550; 85652; 86140

== ENCOUNTER → 2023-02-08 08:48 | Outpatient (BNVA) | payer MEDICARE, SELFPAY | PROVIDERS: PCP Family Medicine; Referring Provider Family Medicine; Visit Provider Psychiatry & Neurology Neurology | DX: R26.89 Other abnormalities of gait and mobility (principal) | CPT/HCPCS: 99214 ==

== ENCOUNTER 2023-02-10 03:03 | Outpatient (CLI) | payer MEDICARE, SELFPAY ==
[2023-02-10 15:52] LABS: Hemoglobin A1C 5.9 % (<5.7)
[2023-02-10 16:53] LABS: Vitamin B12 648 pg/mL (193-986)
[2023-02-12 12:43] LABS: Albumin 63.3 % (55.8-66.1); Albumin g/dL 4.4 g/dL (3.6-5.2)
== END 2023-02-10 03:04 | disposition home or self-care (01) ==
LOC: LBO 03:03
PROVIDERS: PCP Family Medicine; Visit Provider Psychiatry & Neurology Neurology
DX: R26.89 Other abnormalities of gait and mobility; G62.9 Polyneuropathy, unspecified; R73.9 Hyperglycemia, unspecified
CPT/HCPCS: 36415; 82607; 83036; 84165

== ENCOUNTER 2023-03-18 03:19 | Outpatient (CLI) | payer MEDICARE, SELFPAY ==
[2023-03-18] MEDS: Inhaler, Assist Device 1 EACH MC (14:40)
[2023-03-18] MEDS: Albuterol HFA 18 GM 200 PUFF INH IH (14:40)
--- NOTE | 2023-03-19 08:34 | W.PFT ---
Date of service: 03/18/23 Time of Service: 13:02 Pulmonary Function Test Result Indications: Dyspnea Interpretation Spirometry: There is no airflow limitation. There is no significant bronchodilator response. Lung Volumes: Normal lung volumes Diffusion Capacity: Normal diffusion Airway Pressure: Normal airways resistance Impression Normal pulmonary function testing Clinical Correlation therefore is recommended.
== END 2023-03-18 03:20 | disposition home or self-care (01) ==
LOC: RT 03:19
PROVIDERS: PCP Family Medicine; Visit Provider Family Medicine
DX: R06.09 Other forms of dyspnea (principal); M32.9 Systemic lupus erythematosus, unspecified
CPT/HCPCS: 94060; 94726; 94729

== ENCOUNTER 2023-07-02 09:16 | Outpatient (CLI) | payer MEDICARE, SELFPAY ==
--- NOTE | 2023-07-02 08:15 | DI.RAD_ITS ---
Exam(s) XR HIP LT COMPLETE AP PELVIS EXAM: XR HIP LT COMPLETE AP PELVIS CLINICAL HISTORY: LEFT HIP PAIN. TECHNIQUE: 2D digital imaging was performed of the left hip. Two views were obtained. AP pelvis an d lateral left hip views were obtained. COMPARISON: CR XR HIP RT COMPLETE AP PELVIS from 01/16/2021 FINDINGS: BONES: No acute fracture is present. No bony destructive lesion is seen. JOINTS: No dislocation present. Moderate degenerative changes are seen in the left knee characterized by joint space narrowing and osteophytes. The patient has a right total hip replacement which appea rs stable. SOFT TISSUE: Normal. IMPRESSION: Moderate degenerative changes in the left hip. DATA REPOSITORY: RADIATION DOSE DELIVERED:
== END 2023-07-02 09:17 | disposition home or self-care (01) ==
LOC: DIORS 09:17
PROVIDERS: PCP Family Medicine; Referring Provider Family Medicine; Visit Provider Student in an Organized Health Care Education/Training Program
DX: M16.12 Unilateral primary osteoarthritis, left hip (principal)
CPT/HCPCS: 99213; 73502

== ENCOUNTER 2023-08-16 03:45 | Outpatient (CLI) | payer MEDICARE, SELFPAY ==
[2023-08-16 12:15] LABS: HCT 40.1 % (36.0-46.0); HGB 13.3 g/dL (11.2-15.7); MCH 32.2 pg (27.0-33.0); MCHC 33.2 % (32.0-36.0); MCV 97 fL (80-95); MPV 9.4 fL (8.0-11.0); Platelet Count 354 10^3/uL (130-400); RBC 4.13 10^6/uL (3.93-5.22); RDW 12.3 % (11.7-14.6); RDW-SD 44.2 fL; WBC 5.08 10^3/uL (4.4-10.8)
[2023-08-16 12:38] LABS: Anion Gap 9.6 mmol/L (3-11); BUN 34 mg/dL (7-18); CO2 26.4 mmol/L (21.0-32.0); CREATININE 0.9 mg/dL (0.55-1.02); Calcium 9.6 mg/dL (8.5-10.1); Chloride 107 mmol/L (98-107); Estimated GFR 68.77 (mL/min/1.73m2); Glucose 101 mg/dL (74-106); Potassium 4.5 mmol/L (3.5-5.1); Sodium 143 mmol/L (136-145)
== END 2023-08-16 03:46 | disposition home or self-care (01) ==
PROVIDERS: PCP Family Medicine; Visit Provider Student in an Organized Health Care Education/Training Program
DX: M16.12 Unilateral primary osteoarthritis, left hip (principal); Z01.818 Encounter for other preprocedural examination
CPT/HCPCS: 36415; 80048; 85027

== ENCOUNTER 2023-08-16 11:13 | Outpatient (CLI) | payer MEDICARE, SELFPAY ==
--- NOTE | 2023-08-16 10:30 | DI.RAD_ITS ---
Exam(s) XR PELVIS AP EXAM: XR PELVIS AP CLINICAL HISTORY: OA L HIP--PRE OP. TECHNIQUE: 2D digital imaging was performed. COMPARISON: CR XR HIP LT COMPLETE AP PELVIS from 07/02/2023 FINDINGS: No fractures. Right hip prosthesis again noted. Advanced degenerative osteoarthritic changes are ag ain noted in the left hip including [id number] narrowing, degenerative subarticular cysts, and asmita inal femoral head osteophytes. No significant osseous lesions. IMPRESSION: Advanced osteoarthritic degenerative changes again noted in the left hip. DATA REPOSITORY: RADIATION DOSE DELIVERED:
== END 2023-08-16 11:14 | disposition home or self-care (01) ==
LOC: DIORS 11:13
PROVIDERS: PCP Family Medicine; Visit Provider Physician Assistant
DX: M16.12 Unilateral primary osteoarthritis, left hip (principal)
CPT/HCPCS: 72170

== ENCOUNTER 2023-08-25 06:12 | Day surgery (SDC) | payer MEDICARE, SELFPAY ==
[2023-08-25] VITALS (11 sets, daily range): BP systolic 110–162; BP diastolic 49–81; PULSE 57–65; RESP 14–18; TEMP 36.2–36.6; O2SAT 97–100; BMI 29.5
[2023-08-25] MEDS: Acetaminophen 500 MG TAB 1000 MG PO (06:38)
[2023-08-25] MEDS: Celecoxib 200 MG CAP 400 MG PO (06:38)
--- NOTE | 2023-08-25 06:45 | DI.RAD_ITS ---
Exam(s) XR HIP LT IN OR EXAM: XR HIP LT IN OR CLINICAL HISTORY: hip fracture. TECHNIQUE: 2D and realtime digital imaging was performed. COMPARISON: CR XR PELVIS AP from 08/16/2023 FINDINGS: Hard copy image shows placement left hip prosthesis. The alignment appears satisfactory. Please see procedure note for details. Fluoro time: 24.7 seconds RADIATION DOSE DELIVERED: Ka,r=2.52 mGy
--- NOTE | 2023-08-25 06:47 | W.ANESPRE ---
General Info Date of Service Date Performed: 08/25/23 Height: 5 ft 3 in Weight: 75.7 kg Body Mass Index (BMI): 29.5 Surgical Procedure: Operation Date: 08/25/23 07:50 Proposed Procedure Side Surgeon p Hip Total Hip Anterior, Corail Left Samir Griffith MD Meds Allergies and Home Medications Allergies Allergy/AdvReac Type Severity Reaction Status Date / Time bupropion [From Wellbutrin] Allergy Severe Verified 08/25/23 06:15 rosuvastatin [From Crestor] Allergy Severe SOB Verified 08/25/23 06:15 chlorhexidine Allergy Intermediate Skin Rash Unverified 08/25/23 06:15 gluten Allergy Unknown Unverified 08/25/23 06:15 SCALLOPS AdvReac Severe N/V & Uncoded 08/25/23 06:15 DIARRHEA Home Medication Medication Instructions Recorded betamethasone valerate 0.1 % 15 g topical BID PRN 08/01/13 topical cream calcium carbonate 600 mg-vitamin 1 ea PO BID 08/01/13 D3 5 mcg (200 unit) tablet clotrimazole-betamethasone 1 45 g topical BID PRN 08/01/13 %-0.05 % topical cream (Lotrisone) hydroxychloroquine 200 mg tablet 200 mg PO Twice Weekly #1 tab-cap 08/01/13 (Plaquenil) multivitamin 1 ea PO DAILY 08/01/13 venlafaxine 150 mg 150 mg PO DAILY 08/01/13 capsule,extended release 24 hr (Effexor XR) Tumeric 1,000 mg PO DAILY 12/17/15 gabapentin 600 mg tablet 1,200 mg PO HS ##2 12/17/15 melatonin ER 10 mg-pyridoxine HCl 1 ea PO HS ##1 12/17/15 (B6) 10 mg tab, immed-extend release levothyroxine 125 mcg tablet 125 mcg PO DAILY 12/05/20 diphenhydramine HCl 25 mg capsule 25 mg PO QHS PRN 12/27/20 (Benadryl) magnesium oxide 500 mg capsule 400 mg PO DAILY 12/27/20 fluticasone propionate 50 1 spray intranasal DAILY 11/30/22 mcg/actuation nasal spray,suspension sumatriptan succinate 50 mg tablet See Rx Instructions PO .COMPLEX 11/30/22 (Imitrex) metformin 500 mg tablet 500 mg PO DAILY 07/02/23 acetaminophen 500 mg tablet 1,000 mg (2 x 500 mg) PO TID #90 08/25/23 tabs aspirin 81 mg tablet,delayed 81 mg PO BID #60 tabs 08/25/23 release celecoxib 200 mg capsule 200 mg PO BID #60 caps 08/25/23 dexamethasone 4 mg tablet 4 mg PO DAILY #2 tabs 08/25/23 oxycodone 5 mg tablet 5 mg PO Q4H PRN pain #20 tabs 08/25/23 pantoprazole 40 mg tablet,delayed 40 mg PO DAILY #30 tabs 08/25/23 release Current Visit Medications: Current Medications Generic Name Dose Route Start Last Admin Trade Name Freq PRN Reason Stop Dose Admin Acetaminophen 1,000 mg 08/25/23 06:00 08/25/23 06:38 Acetaminophen 500 Mg Tab PO 08/25/23 16:00 1,000 mg PREOP JENNIFER Administration Celecoxib 400 mg 08/25/23 06:00 08/25/23 06:38 Celecoxib 200 Mg Cap PO 08/25/23 16:00 400 mg PREOP JENNIFER Administration Tranexamic Acid 1,000 mg/ 60 mls @ 360 mls/hr 08/25/23 06:00 Sodium Chloride IV 08/25/23 16:00 PREOP JENNIFER Ringer's Solution 1,000 mls @ 80 mls/hr 08/25/23 06:00 IV 09/23/23 23:59 INFUSION JENNIFER Cefazolin Sodium/Dextrose 2 gm in 50 mls @ 100 mls/hr 08/25/23 06:00 Ancef Duplex IVPB 09/23/23 23:59 PREOP JENNIFER IV Miscellaneous Supplies 1 each 08/25/23 06:00 Iv Access IV 09/23/23 23:59 DIRECTED JENNIFER Sodium Chloride 0 ml 08/25/23 06:00 Normal Saline Flush 10 Ml Syr IV 09/23/23 23:59 PRN PRN Sodium Chloride 0 ml 08/25/23 06:00 Normal Saline 10 Ml Vial IJ 09/23/23 23:59 DIRECTED PRN Sterile Water 0 ml 08/25/23 06:00 Water,Injection,Sterile 10 Ml Vial IJ 09/23/23 23:59 DIRECTED PRN PFSH Active Problems Active Problems: Problem Status Onset Code Gait abnormality R26.9 Posterior subcapsular age-related cataract of left eye H25.042 Nuclear sclerotic cataract of left eye H25.12 Osteoarthritis of left hip M16.12 Hypothyroidism E03.9 Cortical cataract of left eye H26.9 Nuclear sclerotic cataract of right eye H25.11 Posterior subcapsular age-related cataract, right eye H25.041 Medical History Medical History Gluten-sensitive enteropathy reports had itchy sensation but since being on metformin symptoms have resolved Arthritis Hyperlipidemia Migraine GERD (gastroesophageal reflux disease) Depression Patellofemoral chondrosis Sinusitis Elevated liver enzymes Facial rash Paresthesia of foot Bilateral feet Right foot - felt like she was walking on ice which was elicited with going from working to walking around her office Diverticular disease Systemic lupus erythematosus Surgical History Surgical History Status post ORIF of fracture of ankle left S/P cataract surgery Hx of colonoscopy Hx of vaginal hysterectomy History of total right hip replacement (12/31/20) Status post laparoscopic cholecystectomy H/O: hysterectomy vaginal hysterectomy and bladder tuck EGD - MAC (09/26/07) Colonoscopy - MAC (09/26/07) Colonoscopy - IV Sedation (07/07/17) Breast, Lumpectomy Tobacco Smoking/Tobacco Use Status: Former Tobacco Use Alcohol Alcohol Intake: current Alcohol intake frequency: a few times a month Substance Use Substance use: Never Substance use type: does not use Details: alcohol:t-7. one drink Vital Signs and Lab Results Vital Signs Most Recent Vital Signs in EMR: Most Recent Vital Signs Temp Pulse Resp BP Pulse Ox 36.2 C L 65 14 110/65 98 08/25/23 06:25 08/25/23 06:25 08/25/23 06:25 08/25/23 06:25 08/25/23 06:25 Point of Care Results Point of Care Results: Finger Stick Blood Glucose 124 08/25/23 06:41 Lab Results Blood Type / Crossmatch: No Data to Display Complete Blood Count: White Blood Count 5.08 10^3/uL (4.4-10.8) 08/16/23 11:50 Red Blood Count 4.13 10^6/uL (3.93-5.22) 08/16/23 11:50 Hemoglobin 13.3 g/dL (11.2-15.7) 08/16/23 11:50 Hematocrit 40.1 % (36.0-46.0) 08/16/23 11:50 Platelet Count 354 10^3/uL (130-400) 08/16/23 11:50 Complete Metabolic Panel: Sodium 143 mmol/L (136-145) 08/16/23 11:50 Potassium 4.5 mmol/L (3.5-5.1) 08/16/23 11:50 Chloride 107 mmol/L (98-107) 08/16/23 11:50 Carbon Dioxide 26.4 mmol/L (21.0-32.0) 08/16/23 11:50 BUN 34 mg/dL (7-18) H 08/16/23 11:50 Creatinine 0.9 mg/dL (0.55-1.02) 08/16/23 11:50 Est GFR (CKD-EPI 2020) 68.77 (mL/min/1.73m2) 08/16/23 11:50 Calcium 9.6 mg/dL (8.5-10.1) 08/16/23 11:50 Glucose 101 mg/dL (74-106) 08/16/23 11:50 Liver Function Panel: No Data to Display Coagulation Panel: No Data to Display Cardiac Panel: No Data to Display Arterial Blood Gas: No Data to Display Venous Blood Gas: No Data to Display Pancreas Panel: No Data to Display Thyroid Panel: No Data to Display Infectious Disease: No Data to Display Blood Cultures: No Data to Display Toxicology Panel: No Data to Display Imaging and Studies Imaging and Studies Study information below may be from another EMR and interpreted by another provider. Please see original notes in EMR for more complete details. Pulmonary Function Summary: Pulmonary Function Test PATIENT NAME: Giselle Leon UNIT #: [id number] ADMITTING PROVIDER: Marcy Duran M.D. PRIMARY CARE PROVIDER: CAMERON SAUCEDO MD DATE OF ADMIT: 03/18/23 : 1955 Date of service: 03/18/23 Time of Service: 13:02 Pulmonary Function Test Result Indications: Dyspnea Interpretation Spirometry: There is no airflow limitation. There is no significant bronchodilator response. Lung Volumes: Normal lung volumes Diffusion Capacity: Normal diffusion Airway Pressure: Normal airways resistance Impression Normal pulmonary function testing Clinical Correlation therefore is recommended. cc: Dictated by: MARCY DURAN MD Dictated: 03/19/23 Time: 833 <Electronically signed by Marcy Duran M.D.> Date: 03/19/23834 Date: Date: Transcribed Date: 03/19/23 Transcribed Time: 833 By: FREIDA This is privileged, confidential information, intended only for the provider named. Any use or distribution by any person other than this provider is strictly prohibited. If you receive this report in error, please notify us immediately at [phone] and return the original report to us at the address above. Thank you. Anesthesia Assessment and Plan Anesthesia History Personal History: No History of Anesthesia Complications Family History: No Family History of Anesthesia Complications Exercise Tolerance Exercise Tolerance: Metabolic Equivalents>4 Pertinent Negatives Pertinent Negatives: No Major Cardiovascular Symptoms or Complaints, No Major Pulmonary Symptoms or Complaints and No History of CVA/TIA Cardiac & Pulmonary Exam Cardiac Exam: Normal S1/S2 Heart Sounds Pulmonary Exam: Clear Bilateral Breath Sounds Implantable Cardiac Device Does patient have a Pacemaker or an ICD?: No Airway Exam Known Difficult Airway: No Mallampati Class: 2 Mouth Opening: Normal (> 3cm) Thyromental Distance: Greater than 3 cm Neck Range of Motion: Full ROM Neck Circumference: Normal Teeth Condition: Normal Dentition and Generalized Poor Dentition ASA Classification ASA Score: ASA 2 Emergency Case?: No NPO Status NPO Status: NPO Clears >2 hours, Solids >8 hours Anesthesia Plan Resuscitation Status: Full Code Anesthesia Technique: Spinal Anesthesia Airway Planned: Natural Airway Monitors Used: Standard Monitors Preoperative Comments:: 68 yo patient here for DENY. PMH: GERD (took husbands Omeprazole last night), hyperlipidemia, Migraines, Elevated liver enzymes, Paresthesias of feet bilaterally (Patient reports intermittent: did discuss potential exacerbation of paresthesias), systemic lupus (settled since menopause) Past ANES: Cat no MKO, Cat with MKO, DENY with spinal (multiple attempts with success at L2/3).
[2023-08-25] MEDS: Lactated Ringers 1,000 ML 80 ML IV (06:55)
[2023-08-25] MEDS: ceFAZolin 2 GM/50 ML BAG IVPB (07:54)
[2023-08-25] MEDS: HYDROmorphone 2 MG/ML SYR IVP ×3 (09:27→10:03)
[2023-08-25] MEDS: Normal Saline 10 ML VIAL IJ ×2 (09:27→10:08)
--- NOTE | 2023-08-25 10:21 | ROE_ITS ---
Date of service: 08/25/23 Time of Service: 07:30 Operative Note Operative Note DATE OF PROCEDURE: 08/25/23 PRE-OP DIAGNOSIS: Left Hip Osteoarthritis POST-OP DIAGNOSIS: same PROCEDURE: Left Anterior Total Hip Arthroplasty with Intraoperative Navigation SURGEON: Samir Griffith [employer]OP[employer] VICE PRESIDENT: Rubens Oswald ANESTHESIA TYPE: General LMA/ETT Refer to Anesthesia Record ESTIMATED BLOOD LOSS: 100 PATHOLOGY: none sent TOURNIQUET TIME: 0 COMPLICATIONS: None Patient was transported to: PACU Patient's condition: stable Implants: 1. Depuy [place] Acetabular Component, 48mm 2. Depuy Acetabular Liner, [id number] 3. Depuy Corail Standard 125 degree Collared Femoral Stem, Size 11 4. Depuy Altrx Ceramic Femoral Head, Size 32+1mm Indications: I have seen Carissa in clinic for symptoms of hip arthritis, confirmed with radiographic findings. She has exhausted nonoperative methods and was having significant limitations in daily function and desired better function and less pain. She had a previously replaced right hip which is done well. I discussed the technical details of a hip replacement. I explained the risks of the procedure to include, but not limited to, bleeding, infection, pain, stiffness, fracture, damage to nerves and vessels, damage to muscles and tendons, loosening, instability, leg length inequality, need for repeat procedure, blood clot and cardiopulmonary demise. Despite these risks, Carissa elected to proceed. Findings: There was significant signs of arthritis throughout the hip. Large osteophytes present around the acetabulum and the femoral neck. Procedure Description: Carissa was greeted in the preoperative holding area where the correct side was identified and marked. The consent was reviewed with the patient and signed. The history and physical was updated. All questions were answered. She was taken back to the operating room. A spinal anesthetic was attempted but was unsuccessful and therefore she was converted to a general anesthesia. The feet were wrapped with cast padding and Coban and then placed into the boot liners and then into the boots. Care was taken to protect the skin and make sure the heels were fully down and the boots were stable. The patient was then positioned onto the HANA table. Both legs were held in a neutral position. SCDs were applied. The patient was then slid down onto a peroneal post. Prophylactic antibiotics in the form of Cefazolin were administered. 1g of Tranxemic Acid was given intravenously within 30 minutes of incision. The left leg was then prepped with Duraprep and draped in a standard fashion. A second prep with Duraprep was performed prior to placement of a shower-curtain type drape with Iodine impregnated skin protection. A timeout to confirm correct identity, side and site, procedure, allergies, anesthesia, and medical concerns was performed. An obliquely oriented incision was made starting lateral to the ASIS and running distal over the Tensor Fascia Eugenia (TFL) muscle belly toward the fibular head, approximately 10cm. The skin and soft tissue was dissected sharply, through Jhonatan?s fascia, and to the fascia of the TFL. With the fascia and superior border of the IT band identified, the fascia was incised with a new knife just above any perforators from the IT band. The TFL muscle belly was bluntly dissected away from the fascia and moved laterally. The fat between TFL and rectus was identified to ensure the dissection was not within the TFL. Blunt dissection created space between abductors and the capsule and retractor was placed over the lateral femoral neck. The fibers of the rectus femoris tendon were identified and these were freed from the anterior capsule. A second cobra retractor was placed around the medial femoral neck. The TFL was further retracted laterally to show the deep fascia. Careful dissection through this layer identified three main crossing vessels of the lateral femoral circumflex. These were cauterized in multiple locations and then cut without any noticeable bleeding. The TFL was further released bluntly from the deep fascia to expose anterior hip capsule and fat The Brandon orthopaedic retractor was then placed beneath the TFL and against sartorius and medial soft tissues to protect and retract the soft tissues. A T-capsulotomy was then performed starting at the superior lateral acetabulum and moving distally to the intertrochanteric ridge. These capsular flaps were tagged with a No. 1 Ethibond and elevated from within. The capsular flaps were released to the shoulder of the lateral neck and to the lesser trochanter to give excellent visualization of the proximal femur. A neck osteotomy was performed using an oscillating saw based on preoperative templates. This cut started in the shoulder and of the lateral neck and exited medially. The saw was at all times directed medially to avoid injury to the greater trochanter. Gross traction was applied to the leg and the osteotomy opened. The femoral head was removed with a corkscrew, making sure to protect the TFL on its exit. Traction was released after head removal. This was measured on the back table to determine the starting reamer size. Portions of the rectus obscuring visualization were minimally elevated off the superior acetabulum. An anterior retractor was placed over the anterior wall between capsule and labrum and attached to the Gripper retraction system. The femur was rotated to 90 degrees and medial capsule was fully released until the lesser trochanter was palpable and visible; the femur was returned to 30 degrees. A posterior retractor was placed similarly between capsule and labrum. This provided excellent visualization. The contents of the cotyloid fossa were removed with electrocautery and the labrum was removed with a knife. There was a notable floor osteophyte. There was significant chondromalacia of the superior acetabulum. Acetabular reaming began with a 44mm reamer. This first reaming was directed anterior to posterior and medial to get down to the true floor. This was inspected and reamed until the true floor was reached. The anterior retractor was then released and entry and exit was provided by traction on the capsular flaps. I then reamed sequentially up to a 48mm reamer where good fit was obtained. The larger reamers were oriented based on anatomical reference of the anterior and lateral ivan to ensure proper abduction and anteversion. Positioning and size was confirmed with the fluoroscopy. A 48mm Depuy [place] acetabular component was selected. The acetabulum was reamed around the periphery with the selected acetabular size to prevent a rim fit. The deep tissues were irrigated. The acetabular component was then impacted in a position of about 40-45 degrees of abduction and 15-20 degrees of anteversion, using the patient?s anatomy as the ultimate landmark. Fluoroscopy was used to confirm this. There was excellent institutional asset manager of the acetabular component and the inserting handle was removed. The acetabular liner, Depuy [id number] polyethylene liner, was inserted and lined up with the tines of the acetabular component. There was no soft tissue interposition. The liner was then impacted into position and confirmed to be well-seated. A portion of the jose-articular cocktail was then injected around the acetabulum into the capsule and periosteum. This cocktail consisted of 123mg of Ropivacaine, 0.25mg of Epinephrine, 0.04mg of Clonidine, and 15mg of Ketorolac, diluted to 50cc. The leg was rotated to 120 degrees. Any remaining medial capsule was released until the lesser trochanter was easily palpable. A retractor was placed medially. The lateral capsule was further released into the shoulder to allow access to the greater trochanter. A Fagan retractor was placed over the greater trochanter which allowed the trochanter to flip in front of the capsule for excellent exposure. The leg was brought down into maximal extension and 20 degrees of adduction while ensuring there was no impingement on the acetabulum. Any remnant capsule within the trochanter was released. Piriformis and obturator externis were identified and protected. There was excellent access to the proximal femur. The lateral neck remnant was removed with a rongeur. A blunt canal probe was used to identify the canal and trajectory for later broaching. A box osteotome initiated the broach course. A small curved rasp and a curved curette were used to work laterally. Broaching then began with a size 8 Corail broach. This was inserted manually around the trochanter and into the canal before mallet blows. The broach was seated to a few millimeters below the cut level based on the neck cut and the preoperative template. Sequential broaching was continued with the MONTAJse pneumatic broaching device until a tight fit was obtained with good rotational control of the femur. A trial standard 125 deg neck was inserted along with a +1 trial head. The leg was brought out of extension and adduction and then reduced with traction and internal rotation. The leg was stable anteriorly in a position of 30 degrees of extension and 90 degrees of external rotation. Fluoroscopy was used to ensure there was no fracture and the stem was seated well. Leg lengths were checked with an AP pelvis and pelvic reference points. [email or web address] navigation system was used to confirm appropriate positioning and leg length and offset. Once content with the desired offset and leg lengths, the leg was brought back into extension, external rotation and adduction. The periosteum and surrounding tissue was injected with remaining portion of the jose-articular cocktail. The proximal femur was irrigated as well as the deep tissues. The Depuy Corail standard 125 deg collared stem, size 11, was then manually inserted into the proximal femur making sure to control rotation. It was then malleted into position with light blows, giving breaks to allow bone expansion and decrease risk of fracture. The selected Depuy Altrx Ceramic Head, size 36+1mm, was then placed onto the clean and dry trunnion and secured with impaction onto the tapered fit. The leg was brought back out of extension and adduction and reduced with traction and internal rotation. Stability was confirmed with no shuck at 90 degrees of external rotation and 30 degrees of extension. No impingement through range of motion arc. Final x-ray images were obtained with fluoroscopy to confirm adequate positioning and no intraoperative fracture. The deep tissues were thoroughly irrigated with Surgiphor, betadine solution. This was allowed to sit in the wound for 3 minutes before being thoroughly irrigated out with normal saline. The capsule was then reapproximated with the previously placed Ethibond sutures. The TFL fascia was finally closed with a No. 2 Stratafix, barbed suture. Deep tissues were then reapproximated with 0 Vicryl and a running 2-0 Vicryl. The skin was closed with a running 4-0 Monocryl in a subcuticular fashion. This was reinforced with skin glue. A Mepilex silver dressing was applied. At the end of the case, all counts were correct. Carissa was transferred to the hospital bed without difficulty and suffering no apparent complication. She has a good prognosis. Physical therapy will start today and without restrictions, weight-bearing as tolerated. Aspirin 81mg BID will be used for DVT prophylaxis.
--- NOTE | 2023-08-25 10:55 | IN_ITS ---
PT Notes Visit Reasons: L THR Physical Therapy Day Surgery Initial Evaluation Date: 08/25/2023 Referring Doctor: TARIQ Sullivan PT Orders: PT CONSULT: S/P Ortho surgery Precautions: WBAT on L LE with AD. Patient Profile/Admitting Diagnosis: Giselle is a 68-year-old female with primary unilateral osteoarthritis of the L hip and status post L anterior total hip arthroplasty on postoperative day 0. PMHX: Medical History (Updated 08/16/23 @ 11:11 by Glenna Garcia) Gluten-sensitive enteropathy reports had itchy sensation but since being on metformin symptoms have resolved Arthritis Hyperlipidemia Migraine GERD (gastroesophageal reflux disease) Depression Patellofemoral chondrosis Sinusitis Elevated liver enzymes Facial rash Paresthesia of foot Bilateral feet Right foot - felt like she was walking on ice which was elicited with going from working to walking around her office Diverticular disease Systemic lupus erythematosus Surgical History Status post ORIF of fracture of ankle S/P cataract surgery Hx of colonoscopy Hx of vaginal hysterectomy History of total right hip replacement (12/31/20) Status post laparoscopic cholecystectomy H/O: hysterectomy vaginal hysterectomy and bladder tuck EGD - MAC (09/26/07) Colonoscopy - MAC (09/26/07) Colonoscopy - IV Sedation (07/07/17) Breast, Lumpectomy Social History/Home Situation: Lives with in a private home with a half step to enter without rails. There is 1 step up to the kitchen and into the living room, rail on 1 side with each step. Independent with PLOF. Equipment Owned/DME: FWW, bilateral axillary crutches Subjective: Has a sensation of his L lower extremity longer which she feels is differently impacting her walking; did not report pain. Objective: General Observation: Supine in bed. Cold pack on leftt hip. TEDS in B legs. Mental Status: Alert and oriented x4 Pain: 1-2/10 pain in the right hip ROM: Right Lower Extremity: Hip flexion WFL. Hip abduction WFL. Knee flexion WFL. Ankle dorsiflexion WFL. Ankle plantarflexion WFL. Left Lower Extremity: Hip flexion WFL. Hip abduction WFL. Knee flexion WFL. Ankle dorsiflexion WFL. Ankle plantarflexion WFL. Strength: Right Lower Extremity: Hip flexors 4-/5. Hip abductors 4-/5. Knee flexors 5/5. Knee extensors 4-/5. Ankle dorsiflexors 4-/5. Ankle plantarflexors 5/5. Left Lower Extremity:Hip flexors 5/5. Hip abductors 5/5. Knee flexors 5/5. Knee extensors 5/5. Ankle dorsiflexors 4-/5. Ankle plantarflexors 5/5. Sensation: Intact in B LE as to pain and light touch. Bed Mobility/Transfers: Supine to sit contact guard assist with cues provided to use B hands as needed for support/safety Sit to stand contact guard assist with cues provided to use B hands as needed for support/safety Stand to sit standby assist with cues provided to use B hands as needed for white pport/safety Bed to chair standby assist with cues provided to use B hands as needed for support/safety Gait: Facilitated safe and correct level surface ambulation covering 150 feet using front-wheeled walker with step-through heel-toe gait pattern requiring contact- guard assist of PT and standby assist of Nurse Nona. Reported that she needed to bring R heel up to level off leg length with the L side as she felt that the L side is unusually a bit longer. Stairs: Guided patient with safe and correct negotiation of 6 x 4-inch steps and 4 x 6- inch steps while holding onto B rails with step to gait pattern and minimal cueing for correct movement sequence. Balance: Static Sitting: Normal Dynamic Sitting: Normal Static Standing: Fair Dynamic Standing: Fair Special Tests: Mobility Limitations [facility] Basic Mobility Inpatient Short Form: Raw Score: 22 CMS Score: 21% deficit Informed Consent/Education: Patient instructed in purpose of PT consult. Packet containing R DENY exercise protocol has been given to patient. Education and training on initial set of exercises that can be done at home have been completed with patient. Trained patient with correct performance of exercises below to maximize motor control, joint flexibility, soft tissue extensibility of the right L hip musculature to facilitate return to independent functional mobility performance. Access Code: [email or web address] URL: [email or web address] Date: 08/25/2023 Prepared by: Tiffany Sanz Exercises - Gluteal Sets - 1 x daily - 7 x weekly - 1 sets - 10 reps - 5 hold - Supine Heel Slide - 1 x daily - 7 x weekly - 1 sets - 10 reps - 5 hold - Supine Ankle Pumps - 1 x daily - 7 x weekly - 1 sets - 10 reps - 5 hold - Seated March - 1 x daily - 7 x weekly - 1 sets - 10 reps - 5 hold - Seated Long Arc Quad - 1 x daily - 7 x weekly - 1 sets - 10 reps - 5 hold Assessment: Giselle requires the use of a front wheeled walker for all mobility ADL performance to maximize independence and reduce fall risk at home. She will benefit from OP PT services to regain premorbid independent level. Patient presents with clinical signs and symptoms consistent with current/admitting diagnoses that have resulted to mobility limitations, gait instability, generalized weakness, and impairment of motor control as demonstrated by the following impairment level findings: 1. Decreased strength to L hip major muscle groups 2. Impaired standing balance 3. Limitation of joint range of motion in L hip Impairments are contributing to the following functional limitations: 1. Inability to safely ambulate without assistive device 2. Increased completion time for mobility ADL performance 3. Increased fall risk Patient is assessed as a 72090 moderate complexity based on the following: History:68-year-old female with impairment level findings, functional limitations, and past medical history as indicated above Examination: Demonstrable impairment in strength, balance, and mobility level with underlying impairments and functional limitations as documented above Presentation: Evolving Decision Makin moderate Goals: N/A. PT evaluation and 1-2 treatment sessions only for functional mobility training using recommended AD and for HEP instruction. Plan of Care/Treatment Plan: N/A. PT evaluation and 1-2 treatment session only for functional mobility training using recommended AD and for HEP instruction. PT INTERVENTION RECEIVED TODAY: Assessment for and fitting of appropriate assistive device. Guided patient through bed mobility, transfers, and mobility ADL performance on level surfaces and stairs using front wheeled walker and single crutch in order to reduce fall risk. Educated and trained patient on HEP performance to maximize post-surgical functional outcomes. Education on the use of cryotherapy. DISCHARGE RECOMMENDATIONS: Home when medically cleared by orthopedic surgeon. Recommend outpatient PT se rvices in order to optimize functional mobility outcomes and facilitate return to independent community ambulation without an assistive device. TREATMENT CODE/TIME: 44026 x 20 minutes, 9753 0 x 15 minutes beginning at 12:07 PM. Thank you for the opportunity to participate in the care of this patient. Tiffany Sanz PT, DPT, CLT [facility] [place], [place]
--- NOTE | 2023-08-25 11:44 | PDOC.DSDIS_ITS ---
Date of service: 08/25/23 Time of Service: 11:44 Discharge Plan Disposition Patient Disposition: Home Condition: Good Discharge Details Reason For Visit: L THR Attending Provider: Samir Griffith Primary Care Provider: Shirley Nash V Home Meds and New Rx's Prescriptions: New acetaminophen 500 mg tablet 1,000 mg PO TID Qty: 90 3RF aspirin 81 mg tablet,delayed release (DR/EC) 81 mg PO BID Qty: 60 0RF celecoxib 200 mg capsule 200 mg PO BID Qty: 60 0RF pantoprazole 40 mg tablet,delayed release (DR/EC) 40 mg PO DAILY Qty: 30 0RF dexamethasone 4 mg tablet 4 mg PO DAILY Qty: 2 0RF oxycodone 5 mg tablet 5 mg PO Q4H MDD 6 tabs PRN (Reason: pain) Qty: 20 0RF Continued magnesium oxide 500 mg capsule 400 mg PO DAILY metformin 500 mg tablet 500 mg PO DAILY venlafaxine [Effexor XR] 150 MG capsule,extended release 24hr 150 mg PO DAILY calcium carbonate-vitamin D3 1 EACH tablet 1 ea PO BID betamethasone valerate 15 GM cream 15 g Topical BID PRN clotrimazole-betamethasone [Lotrisone] 45 GM cream 45 g Topical BID PRN hydroxychloroquine [Plaquenil] 200 MG tablet 200 mg PO Twice Weekly Qty: 1 multivitamin 1 EACH capsule 1 ea PO DAILY gabapentin 600 MG tablet 1,200 mg PO HS Qty: 2 Patient Comments: 12/17/15 Pt states 1200mg @ bedtime, 600mg in am. PG melatonin-pyridoxine HCl (B6) 1 EACH tablet,ext release multiphase 1 ea PO HS Qty: 1 Tumeric 1,000 mg PO DAILY Patient Comments: states she has not been taking it 05/26/17 tb levothyroxine 125 mcg tablet 125 mcg PO DAILY fluticasone propionate 50 mcg/actuation spray,suspension 1 spray intranasal DAILY Rx Instructions: administer into each nostril sumatriptan succinate [Imitrex] 50 mg tablet See Rx Instructions PO .COMPLEX Rx Instructions: take 1 tab at onset of headache; if no relief may repeat 1 tab after at least 2 hrs; max = 4 tabs/24 hr PO diphenhydramine HCl [Benadryl] 25 mg Capsule 25 mg PO QHS PRN Discontinued ibuprofen 200 mg capsule 800 mg PO BID acetaminophen 500 mg tablet 500 mg PO Q6H PRN (Reason: pain) Qty: 60 2RF Discharge Instructions Additional Instructions: Total Hip Discharge Instructions Activity: The most important activity is to walk. You should try to take short walks a few times a day. You have no restrictions on movement or positioning, but do not try to force what you do. You will find some stiffness and weakness with hip flexion (lifting your knee). Do not try to strengthen this too early, continue to practice walking and stairs and this will come. - Outpatient physical therapy can be helpful to help return you to a normal gait and improve your flexibility and strength. This can start around 2 weeks. For some patients, it?s not necessary. Usually this is determined at the time of discharge or at the first post-operative visit. - You should wear the HOMERO hose on both legs for 2 weeks. Dressing: Keep the surgical dressing in place for at least one week. After the first week it may be removed and replace with light gauze and tape or nothing. It may get wet after 3 days but avoid soaking the dressing. If it gets wet, just lightly pat dry. It is important to always keep some gauze between skin folds, especially when you are sitting. Spend some time with the wound exposed when you are lying flat as the incision does wrinkle onto itself. Medications: - You should take Tylenol and an anti-inflammatory Celebrex as your primary pain control medications. If the Celebrex is too expensive or not covered, please call the office for another alternative (Advil/Ibuprofen or Naproxen/Aleve). - You have been prescribed a stronger pain medication Oxycodone for breakthrough pain, take as needed as prescribed. - You have also been prescribed a stomach acid reduction agent Pantoprozole to help reduce stomach acid and reflux. - You have also been prescribed Decadron to help with post-operative nausea and pain. You will take this for two days starting tomorrow. - You will be taking Aspirin 81mg twice a day for DVT prevention unless instructed otherwise. - If you have constipation you should take Colace or Miralax (both [id number]). It takes most people 3-4 days to have a bowel movement. Follow-up: 2 weeks If you have any acute concerns or questions, please do not hesitate to contact the office at [phone]. You may contact Dr. Griffith with any questions after hours through the hospital at [phone] or on his cell phone at [phone]. Stand Alone Forms: Anesthesia Discharge Inst., Asia Bradley (DSU) Referrals: Samir Griffith MD [ [facility] STAFF PHYSICIAN] - 09/09/23 10:45 am Equipment/Supplies: Walker Activity:: Activity as Tolerated Shower/Bathe:: 72 hours Diet:: As Tolerated Discharge Orders Discharge Orders: Discharge Order (Routine); Ordered 08/25/23 Ordered By: Samir Griffith DS: Diagnosis Discharge Diagnosis (1) Osteoarthritis of left hip: Status: Chronic
--- NOTE | 2023-08-25 12:48 | W.ANESPOSTOP ---
Postoperative Evaluation Date, Time and Location Date Performed: 08/25/23 Time Performed: 12:48 Patient Location: Day Surgery Unit Vital Signs Most Recent Imported Vital Signs: Most Recent Vital Signs Temp Pulse Resp BP Pulse Ox 36.2 C L 64 16 144/65 H 98 08/25/23 11:29 08/25/23 11:29 08/25/23 11:29 08/25/23 11:29 08/25/23 11:29 Pain Score Most Recent Pain Score: Most Recent Pain Score Pain Level 1 08/25/23 11:29 Assessment Mental Status: Awake (Alert & Oriented to Patient Baseline) Airway and Respiratory Function: Patent airway with normal (patient baseline) respiratory exam Cardiovascular Function: Hemodynamically Stable Hydration Status: Adequately Hydrated Nausea & Vomiting: No Nausea or Vomiting Pain: Pain is tolerable per patient Peripheral Nerve Block: Patient did not receive a nerve block
== END 2023-08-25 12:45 | disposition home or self-care (01) ==
PROVIDERS: PCP Family Medicine; Visit Provider Student in an Organized Health Care Education/Training Program
PROC: (CPT 27130; principal; 2023-08-25 07:30)
DX: M16.12 Unilateral primary osteoarthritis, left hip (principal); K21.9 Gastro-esophageal reflux disease without esophagitis; E03.9 Hypothyroidism, unspecified
CPT/HCPCS: 20985; 27130; C1776; 97162; 97530; 73501; J0690; J1100; J1170; J2250; J2371; J2405; J3010

== ENCOUNTER 2023-09-09 11:03 | Outpatient (CLI) | payer MEDICARE, SELFPAY ==
--- NOTE | 2023-09-09 10:45 | DI.RAD_ITS ---
Exam(s) XR HIP LT COMPLETE AP PELVIS EXAM: XR HIP LT COMPLETE AP PELVIS CLINICAL HISTORY: s/p left DENY. TECHNIQUE: 2D digital imaging was performed. Two views. COMPARISON: CR XR PELVIS AP from 08/16/2023 XA XR HIP LT IN OR from 08/25/2023 FINDINGS: BONES: No acute fracture is present. No bony destructive lesion is seen. JOINTS: No dislocation present. There has been no change in the alignment of the bilateral hip pros theses. SOFT TISSUE: Normal. IMPRESSION: Stable appearance of bilateral hip prostheses. DATA REPOSITORY: RADIATION DOSE DELIVERED:
== END 2023-09-09 11:04 | disposition home or self-care (01) ==
LOC: DIORS 11:04
PROVIDERS: PCP Family Medicine; Referring Provider Family Medicine; Visit Provider Student in an Organized Health Care Education/Training Program
DX: Z96.642 Presence of left artificial hip joint (principal); Z47.1 Aftercare following joint replacement surgery; M65.311 Trigger thumb, right thumb
CPT/HCPCS: 20550; 73502; J1030

== ENCOUNTER → 2023-10-08 10:43 | Outpatient (BNVA) | payer MEDICARE, SELFPAY | PROVIDERS: PCP Family Medicine; Referring Provider Family Medicine; Visit Provider Student in an Organized Health Care Education/Training Program | DX: Z47.1 Aftercare following joint replacement surgery (principal); Z96.642 Presence of left artificial hip joint ==

== ENCOUNTER 2023-11-04 15:07 | Outpatient (REF) | payer MEDICARE, SELFPAY ==
[2023-11-04 19:23] LABS: HCT 42.6 % (36.0-46.0); HGB 14.3 g/dL (11.2-15.7); MCH 31.2 pg (27.0-33.0); MCHC 33.6 % (32.0-36.0); MCV 93 fL (80-95); MPV 9.6 fL (8.0-11.0); Platelet Count 421 10^3/uL (130-400); RBC 4.58 10^6/uL (3.93-5.22); RDW 12.1 % (11.7-14.6); RDW-SD 41.8 fL; WBC 5.98 10^3/uL (4.4-10.8)
[2023-11-04 19:53] LABS: ALT 29 U/L (14-59); AST 18 U/L (15-37); Albumin 4.2 g/dL (3.4-5.0); Alkaline Phosphatase 73 U/L (46-116); Anion Gap 10.3 mmol/L (3-11); BUN 32 mg/dL (7-18); Bilirubin, Total 0.2 mg/dL (0.2-1.0); CO2 24.7 mmol/L (21.0-32.0); CREATININE 0.8 mg/dL (0.55-1.02); Calcium 9.4 mg/dL (8.5-10.1); Calculated LDL 171 mg/dL (<100); Chloride 103 mmol/L (98-107); Cholesterol 268 mg/dL (<200); Estimated GFR 79.22 (mL/min/1.73m2); Glucose 107 mg/dL (74-106); HDL Cholesterol 83 mg/dL (40-60); Potassium 4.2 mmol/L (3.5-5.1); Sodium 138 mmol/L (136-145); TSH (W/Ref FT4) 0.61 uIU/mL (0.36-3.74); Total Protein 7.6 g/dL (6.4-8.2); Triglyceride 73 mg/dL (<150)
[2023-11-04 20:27] LABS: Hemoglobin A1C 5.5 % (<5.7)
== END 2023-11-04 15:08 | disposition home or self-care (01) ==
LOC: NCHCN 15:07
PROVIDERS: PCP Family Medicine; Visit Provider Family Medicine
DX: Z00.00 Encounter for general adult medical examination without abnormal findings (principal)
CPT/HCPCS: 80053; 80061; 85027; 83036; 84443

== ENCOUNTER → 2023-11-19 09:54 | Outpatient (BNVA) | payer MEDICARE, SELFPAY | PROVIDERS: PCP Family Medicine; Referring Provider Family Medicine; Visit Provider Student in an Organized Health Care Education/Training Program | DX: Z47.1 Aftercare following joint replacement surgery (principal); Z96.642 Presence of left artificial hip joint ==

== ENCOUNTER → 2024-01-10 04:24 | Outpatient (CLI) | payer MEDICARE, SELFPAY ==
--- NOTE | 2024-01-10 | DI.CTLCSR_ITS ---
Exam(s) CT CHEST LUNG CANCER SCREEN EXAM: CT CHEST LUNG CANCER SCREEN CLINICAL HISTORY: Personal h/o nicotine dependence, Z87.891. TECHNIQUE: Imaging Protocol: Low Dose Technique CONTRAST MATERIAL: None COMPARISON: CT CT CHEST LUNG CANCER SCREEN from 12/03/2021 FINDINGS: CHEST: LUNGS: The previously described fissure related 6 millimeter nodule in the right lung remains unchang ed in size and configuration. There are no new ominous pulmonary nodules. There are no confluent inf iltrates. Mild increased markings in the lingular segment of the left lung are unchanged. MEDIASTINUM: There is no obvious hilar nor mediastinal adenopathy. CARDIAC: Heart size is normal. There is no pericardial effusion.Caliber of the thoracic aorta is wit hin normal limits. OTHER: OSSEOUS: No significant osseous lesions.Fractures.. IMPRESSION: 1. Continued stable appearance of the solitary benign-appearing right lung nodule. No new significan t nodules, it lung infiltrates, nor pleural effusions. 2. No intrathoracic adenopathy. 3. Lung RADS Cat 1 - Negative: No nodules and definitely benign nodules Lung-RADS 1.0 CATEGORIES: Category 0 - Prior chest CT exam(s) being located for comparison. Category 1 - Annual screening in 12 months. No nodules or definitely benign nodules. Category 2 - Annual screening in 12 months. Benign appearance. Nodules with low likelihood of becomin g active cancer. Category 3 - 6-month follow-up. Probably benign. Short-term follow-up suggested. Nodules with low lik elihood of becoming active cancer. Category 4A - 3-month follow-up and CT/PET if >8 mm in size. Suspicious finding. Findings which requi re additional testing. Category 4B - Findings which require additional testing and tissue sampling. Category 4X - Category 3 or 4 nodules with additional features or imaging findings that increases the suspicion of malignancy. Modifier S- Potentially clinically significant findings (non lung cancer) RADIATION DOSE DELIVERED: Total DLP DATA REPOSITORY: All CT scans at this facility are submitted to the National Radiology Data Registry (NRDR) Dose Index Registry (DIR) with the [employer] (ACR). RADIATION OPTIMIZATION: All CT scans at this facility use at least one of these dose optimization te chniques: automated exposure control; mA and/or kV adjustment per patient size (includes targeted exa ms where dose is matched to clinical indication); or iterative reconstruction.
--- NOTE | 2024-01-10 | DI.MAMMO_ITS ---
Exam(s) MAMMO SCREENING EXAM: MAMMO SCREENING CLINICAL HISTORY: Screening, Z12.31. TECHNIQUE: Bilateral full field digital CC and MLO mammographic images were obtained with 3D tomosyn thesis and utilizing computer aided detection (CAD). COMPARISON: Prior mammograms were reviewed. FINDINGS: There has been no significant change in the appearance and distribution of the fibroglandular tissue. There are no CAD designations. There are no new spiculated masses nor malignant appearing microcalcification groups. There is no significant architectural distortion nor skin thickening-retraction. IMPRESSION: No radiographic evidence of malignancy. BI-RADS Category 1 - Negative Breast Density - Category B - Scattered areas of fibroglandular density Breast density Category C or D implies that the patient has dense breast tissue. Dense breast tissue can make it harder to find cancer on a mammogram. Dense breast tissue is also associated with an incr eased risk of breast cancer. This information about the result of the mammogram report was provided to the patient to raise their awareness. Use this report when you speak with the patient about their risks for breast cancer, which includes their family history. At that time, you may recommend additional screening tests (Ultrasoun d or MRI) as these tests may add significant information. A negative radiographic report should not delay biopsy if a dominant or clinically suspicious mass is present. Up to ten percent of cancers are not identified on mammography. A negative report may reinforce clinical impression. Adenosis and dense breasts may obscure an underlying neoplasm. False positive reports average 6 to 10%. Patient will receive a letter notifying them of these results.
== END ==
PROVIDERS: PCP Family Medicine; Visit Provider Family Medicine
DX: Z87.891 Personal history of nicotine dependence (principal); Z12.31 Encounter for screening mammogram for malignant neoplasm of breast
CPT/HCPCS: 71271; 77063; 77067

== ENCOUNTER → 2024-02-14 10:26 | Outpatient (BNVA) | payer MEDICARE, SELFPAY | PROVIDERS: PCP Family Medicine; Referring Provider Family Medicine; Visit Provider Student in an Organized Health Care Education/Training Program | DX: Z47.1 Aftercare following joint replacement surgery (principal); Z96.642 Presence of left artificial hip joint ==

== ENCOUNTER 2024-05-31 15:00 | Outpatient (CLI) | payer MEDICARE, SELFPAY ==
--- NOTE | 2024-05-31 14:51 | DI.RAD_ITS ---
Exam(s) XR SHOULDER LT COMPLETE 2+V EXAM: XR SHOULDER LT COMPLETE 2+V CLINICAL HISTORY: evaluation of shoulder. TECHNIQUE: 2D digital imaging was performed. Two views. COMPARISON: No exams were available for comparison FINDINGS: BONES: No acute fracture is present. No bony destructive lesion is seen. JOINTS: No dislocation present. Glenohumeral joint is maintained. No significant AC joint spurring. SOFT TISSUE: Normal. IMPRESSION: Unremarkable radiographs of the left shoulder. DATA REPOSITORY: RADIATION DOSE DELIVERED:
== END 2024-05-31 15:01 | disposition home or self-care (01) ==
LOC: DIORS 15:00
PROVIDERS: PCP Family Medicine; Referring Provider Family Medicine; Visit Provider Student in an Organized Health Care Education/Training Program
DX: S46.012D Strain of muscle(s) and tendon(s) of the rotator cuff of left shoulder, subsequent encounter; W18.09XD Striking against other object with subsequent fall, subsequent encounter
CPT/HCPCS: 99213; 73030

== ENCOUNTER 2024-06-05 02:36 | Outpatient (CLI) | payer MEDICARE, SELFPAY ==
--- OUTSIDE RECORDS SUMMARY | 2024-06-05 02:37 | XMS_ITS | Encounter Summary ---
Author Organization [facility] Address [address] [place] [address] Care Team Providers Care Academic Program Specialist Name Role Phone Unknown, Provider Primary Care Provider [phone] Encounter Details Date Type Department Care Team (Late st Contact Info) Description 07/11/2020 Lab Requisition [facility] Pathology & Laboratory Medicine - [facility] [address], [place] [id number] Outr Resulting Lab, Provider Social History Tobacco Use Types Packs/Day Years Used Date Smoking Tobacco: Never Assessed Interpersonal Safety Answer Date Record ed Physically Hurt Never 05/26/2020 Verbally Threaten Not on file 05/26/2020 Sex and Gender Information Value Date Recorded Sex Assigned at Not on file Gender Identity Not on file Sexual Orientation Not on file documented as of this encounter Plan of Treatment Not on file documented as of this encounter Procedures Procedure Name Priority Date/Time Associated Diagnosis Comments RHEUMATOID FACTOR Routine 07/10/2020 10: 20 EDT documented in this encounter Results * RHEUMATOID FACTOR (07/10/2020 10:20 EDT) Rheumatoid Factor <8.6 <12.0 IU/mL 07/11/2020 21:24 EDT [facility] Blood VENOUS BLOOD / Unknown 07/10/2020 10:20 EDT 07/11/2020 20:46 EDT Provider Outr Resulting Lab CHEMISTRY & BLOOD GAS ORDERABLES [facility] [address] [place] [address] documented in this encounter Visit Diagnoses Not on filedocumented in this encounter Care Teams Academic Program Specialist Relationship Specialty Start Date End Date Unknown, Provider, PCP - General 08/24/13 documented as of this encounter
--- OUTSIDE RECORDS SUMMARY | 2024-06-05 02:37 | XMS_ITS | Referral Summary ---
Author Organization [facility] Address [address] [place] [address] Care Team Providers Care Director Of Digital Platforms Name Role Phone Unknown, Provider Primary Care Provider [phone] Social History Tobacco Use Types Packs/Day Years Used Date Smoking Tobacco: Never Assessed Interpersonal Safety Answer Date Record ed Physically Hurt Never 05/26/2020 Verbally Threaten Not on file 05/26/2020 Sex and Gender Information Value Date Recorded Sex Assigned at Not on file Gender Identity Not on file Sexual Orientation Not on file Plan of Treatment Not on file Care Teams Director Of Digital Platforms Relationship Specialty Start Date End Date Unknown, Provider, PCP - General 08/24/13
--- OUTSIDE RECORDS SUMMARY | 2024-06-05 02:37 | XMS_ITS | Encounter Summary ---
Author Organization [facility] Address [address] [place] [address] Care Team Providers Care Customer Service Trainer Name Role Phone Unavailable Primary Care Provider Unavailabl e Encounter Details Date Type Department Care Team ([facility] st Contact Info) Description 06/17/2006 Results Only [facility] [address] [place] [address] Shirley Nash MD [address], [place] [id number] Social History Tobacco Use Types Packs/Day Years Used Date Smoking Tobacco: Never Assessed Sex and Gender Information Value Date Recorded Sex Assigned at Not on file Gender Identity Not on file Sexual Orientation Not on file documented as of this encounter Plan of Treatment Not on file documented as of this encounter Procedures Procedure Name Priority Date/Time Associated Diagnosis Comments CYTOPATHOLOGY Routine 06/17/2006 0:00 EDT documented in this encounter Results * CYTOPATHOLOGY (06/17/2006 0:00 EDT) Pathology Report: CYTOPATHOLOGY REPORT Reports generated via electronic interface contain original data; however they are lacking the format of the original report. Caution should be taken when reading/interpreti ng unformatted reports. Name: ? TYRELL GANDARA ? Accession #: ? [id number] : ? 1955 (Age: 50) ??F ?Collect Date: ? 06/17/2006 Location: ? [facility] ? Receive Date: ? 06/21/2006 Provider: ?SHIRLEY NASH MD Copy to: ? Specimen/Source: ?ThinPrep Pap Test, Cervix/Endocervix, processed on [employer] ThinPrep Imaging System, with manual evaluation Last Menstrual Period: ? 2 yrs ? SPECIMEN ADEQUACY ? Satisfactory for Evaluation - assessment of transformation zone component not applicable ( e.g. atrophy, vaginal sample, hysterectomy) GENERAL CATEGORIZATION ? Negative for Intraepithelial Lesion or Malignancy ? Document reviewed and electronically signed by: ? TESSA Zepeda(ASCP)(IAC) ? Report Date: ??06/22/2006 16:04 End of Report [facility] 06/17/2006 06/21/2006 Shirley Nash MD PATHOLOGY ORDERABLES Performing Organization Address City/State/[facility] Co de Phone Number [facility] [address] [place] [address] documented in this encounter Visit Diagnoses Not on filedocumented in this encounter
--- OUTSIDE RECORDS SUMMARY | 2024-06-05 02:37 | XMS_ITS | Encounter Summary ---
Author Organization [facility] Address [address] [place] [address] Care Team Providers Care Associate Loan Officer Name Role Phone Unavailable Primary Care Provider Unavailabl e Encounter Details Date Type Department Care Team (Latest Contact Info) Description 08/21/2013 10:04 EDT - 08/21/2013 23:59 EDT Hospital Encounter [address] [address] Unknown, Provider, Discharge Disposition: Home or Self Care Social History Tobacco Use Types Packs/Day Years Used Date Smoking Tobacco: Never Assessed Sex and Gender Information Value Date Recorded Sex Assigned at Not on file Gender Identity Not on file Sexual Orientation Not on file documented as of this encounter Discharge Disposition Disposition Code Departure Means Destination Home or Self Senior Living documented in this encounter Plan of Treatment Not on file documented as of this encounter Visit Diagnoses Not on filedocumented in this encounter
--- OUTSIDE RECORDS SUMMARY | 2024-06-05 02:37 | XMS_ITS | Encounter Summary ---
Author Organization [facility] Address [address] [place] [address] Care Team Providers Care Financial Investment Manager Name Role Phone Unknown, Provider Primary Care Provider [phone] Encounter Details Date Type Department Care Team (Late st Contact Info) Description 12/18/2015 Results Only [facility] [phone] Asia Cruz MD [address] [place] [address] Social History Tobacco Use Types Packs/Day Years Used Date Smoking Tobacco: Never Assessed Sex and Gender Information Value Date Recorded Sex Assigned at Not on file Gender Identity Not on file Sexual Orientation Not on file documented as of this encounter Plan of Treatment Not on file documented as of this encounter Procedures Procedure Name Priority Date/Time Associated Diagnosis Comments SURGICAL PATHOLOGY Routine 12/18/2015 17 :05 EST documented in this encounter Results * SURGICAL PATHOLOGY (12/18/2015 17:05 EST) Pathology Report: SURGICAL PATHOLOGY REPORT Reports generated via electronic interface contain original data; however they are lacking the format of the original report. Caution should be taken when reading/interpreti ng unformatted reports. Name: ? TYRELL GANDARA ? Accession #: ? [id number] ? : ? 1955 (Age: 60) ??F ? Collect Date: ? 12/18/2015 ? Location: ? [facility] ? Receive Date: ? 12/18/2015 ? Provider: ASIA CRUZ MD Copy to: CAMERON SAUCEDO MD ? Final Pathologic Diagnosis: UTERUS, HYSTERECTOMY: - ??Cervix: - ??Squamous metaplasia, tunnel clusters, cystically dilated endocervical glands (nabothian cysts). - ??Endometrium: - ??Focal endometrial scar. - ??Inactive endometrium. - ??Myometrium: - ??Leiomyoma (4 mm), intramural. - ??Uterine serosa: - ??No specific histopathologic features. Document reviewed and electronically signed by: Stuart Felder MD Report ??Date: 12/21/2015 09:21 By the signature above, the attending physician certifies that he/she has personally conducted a gross and/or microscopic examination of the described specimens and rendered or confirmed the above diagnosis. Specimen(s) Received: Uterus Clinical History: Uterus, prolapse, cystocele Gross Description: ? Received in formalin labelled with proper patient identification (initials N, J) and uterus is a 52 g uterus without adnexa. The specimen measures 7.2 cm from ectocervix to fundus, 4.2 cm from cornu to cornu, 2.7 cm from anterior to posterior. The serosa is unremarkable. The ectocervix is 2.5 cm in diameter and covered by smooth to wrinkled abrams mucosa. The os is centrally located and measures 0.4 cm. Bivalving shows a few Nabothian cysts in the endocervical canal measuring up to 0.3 cm. The uterine cavity is 2.5 x 2.2 cm and lined by red endometrium which averages 0.1 cm in thickness. The anterior endomyometrium is remarkable for a 0.5 x 0.4 x 0.1 cm subtle elevation. The myometrium is unremarkable and averages 1.5 cm in thickness. Director Of Blood sections are submitted as follows: BLOCK VELOZ 1- ??anterior cervix 2- ??posterior cervix 3-4- ??anterior endomyometrium with a subtle elevation 5- ??posterior endomyometrium Columba POTTER 12/19/2015 9:18 AM End of Report [facility] 12/18/2015 17:0 5 EST 12/18/2015 17:05 EST Asia Cruz MD PATHOLOGY ORDERABLES Performing Organization Address City/State/[facility] Co de Phone Number [facility] [address] [place] [address] documented in this encounter Visit Diagnoses Not on filedocumented in this encounter Care Teams Financial Investment Manager Relationship Specialty Start Date End Date Unknown, Provider, PCP - General 08/24/13 documented as of this encounter
--- OUTSIDE RECORDS SUMMARY | 2024-06-05 02:37 | XMS_ITS | Encounter Summary ---
Author Organization [facility] Address [address] [place] [address] Care Team Providers Care Community Development Planner Name Role Phone Unavailable Primary Care Provider Unavailabl e Encounter Details Date Type Department Care Team (Late st Contact Info) Description 07/22/2004 Results Only [facility] - Maple [facility] [address] [place] [address] Susie Grossman, [facility] [address] [place] [address] Social History Tobacco Use Types Packs/Day Years Used Date Smoking Tobacco: Never Assessed Sex and Gender Information Value Date Recorded Sex Assigned at Not on file Gender Identity Not on file Sexual Orientation Not on file documented as of this encounter Plan of Treatment Not on file documented as of this encounter Procedures Procedure Name Priority Date/Time Associated Diagnosis Comments CYTOPATHOLOGY Routine 07/22/2004 0:00 EDT documented in this encounter Results * CYTOPATHOLOGY (07/22/2004 0:00 EDT) Pathology Report: CYTOPATHOLOGY REPORT Reports generated via electronic interface contain original data; however they are lacking the format of the original report. Caution should be taken when reading/interpreti ng unformatted reports. Name: ? TYRELL GANDARA ? Accession #: ? [id number] : ? 1955 (Age: 48) ??F ?Collect Date: ? 07/22/2004 Location: ? [facility] ? Receive Date: ? 07/24/2004 Provider: ?SUSIE GROSSMAN SUPPORT ASSISTANT Copy to: ? Specimen/Source: ?ThinPrep Pap Test, Cervix/Endocervix Last Menstrual Period: ? Months ? SPECIMEN ADEQUACY ? Satisfactory for Evaluation - transformation zone component present GENERAL CATEGORIZATION ? Negative for Intraepithelial Lesion or Malignancy ? Document reviewed and electronically signed by: ? Adriano Lopez, TESSA(ASCP) ? Report Date: ??07/29/2004 08:49 End of Report [facility] 07/22/2004 07/24/2004 Susie Grossman NP PATHOLOGY ORDERABLES [facility] [address] [place] [address] documented in this encounter Visit Diagnoses Not on filedocumented in this encounter
--- OUTSIDE RECORDS SUMMARY | 2024-06-05 02:37 | XMS_ITS | Encounter Summary ---
Author Organization [facility] Address [address] [place] [address] Care Team Providers Care Loss Prevention Coordinator Name Role Phone Unknown, Provider Primary Care Provider [phone] Encounter Details Date Type Department Care Team (Latest Contact Info) Description 12/18/2015 6:28 EST - 12/18/2015 23:59 [facility] Hospital Encounter [address] [address] Unknown, Provider, Discharge Disposition: Home or Self Care Social History Tobacco Use Types Packs/Day Years Used Date Smoking Tobacco: Never Assessed Sex and Gender Information Value Date Recorded Sex Assigned at Not on file Gender Identity Not on file Sexual Orientation Not on file documented as of this encounter Discharge Disposition Disposition Code Departure Means Destination Home or Self Group Home documented in this encounter Plan of Treatment Not on file documented as of this encounter Visit Diagnoses Not on filedocumented in this encounter Care Teams Loss Prevention Coordinator Relationship Specialty Start Date End Date Unknown, Provider, PCP - General 08/24/13 documented as of this encounter
--- OUTSIDE RECORDS SUMMARY | 2024-06-05 02:37 | XMS_ITS | Encounter Summary ---
Author Organization [facility] Address [address] [place] [address] Care Team Providers Care Coat Room Attendant Name Role Phone Unavailable Primary Care Provider Unavailabl e Encounter Details Date Type Department Care Team (Late st Contact Info) Description 02/15/2001 Results Only [facility] - Maple conversion [address] [place] [address] Domenic Robison MD [address] [place] [address] Social History Tobacco Use Types [...] Date/Time Associated Diagnosis Comments SURGICAL PATHOLOGY Routine 02/15/2001 0:00 EDT documented in this encounter Results * SURGICAL PATHOLOGY (02/15/2001 0:00 EDT) Pathology Report: SURGICAL PATHOLOGY REPORT Reports generated via electronic interface contain original data; however they are lacking the format of the original report. Caution should be taken when reading/interpreti ng unformatted reports. Name: ? TYRELL GANDARA ? Accession #: ? [id number] ? : ? 1955 (Age: 45) ??F ? Collect Date: ? 02/15/2001 ? Location: ? [facility] ? Receive Date: ? 02/16/2001 ? Provider: DOMENIC ROBISON MD Copy to: ILEANA CORREA MD ? Final Pathologic Diagnosis: ? Endometrium, biopsy: 1. ?Weakly proliferative endometrium with tubal metaplasia. 2. ?Fragment of secretory endometrium. 3. ?No hyperplasia identified. Document reviewed and electronically signed by: Estee Louis MD Report ??Date: 02/18/2001 16:28 By the signature above, the attending physician certifies that he/she has personally conducted a gross and/or microscopic examination of the described specimens and rendered or confirmed the above diagnosis. Specimen(s) Received: ? Endo bx Clinical History: ? Hx simple hyperplasia treated with progesterone Gross Description: ? Received in formalin labelled Edward and Endo Bx are multiple fragments of abrams-white to red-brown, soft, mucinous tissue which measures roughly 2 cc in aggregate volume. ??The specimen is divided into two equal halves and submitted intact as (A1) and (A2). ??(E Clarice-ML)/[facility] End of Report [facility] 02/15/2001 02/16/2001 15: 23 EDT Domenic Robison MD PATHOLOGY ORDERABLES [facility] [address] [place] [address] documented in this encounter Visit Diagnoses Not on filedocumented in this encounter
--- OUTSIDE RECORDS SUMMARY | 2024-06-05 02:37 | XMS_ITS | Encounter Summary ---
Author Organization [facility] Address [facility] [place] [address] Care Team Providers Care Fire Official Name Role Phone Shirley Nash MD Primary Care Provider [phone] Reason for Visit * Reason Comments Rash Encounter Details Date Type Department Care Team (Late st Contact Info) Description 01/09/2019 3:30 PM EDT Office Visit Dermatology at [facility] [address] [place] [address] Vi Bay MD [facility] [place] [address] Seborrheic dermatitis (Primary Dx); Neuropathic pruritus Social History Tobacco Use Types Packs/Day Years Used Date Smoking Tobacco: Former Cigarettes Q uit: 2009 Smokeless Tobacco: Never Sex and Gender Information Value Date Recorded Sex Assigned at Not on file Gender Identity Not on file Sexual Orientation Not on file documented as of this encounter Patient Instructions * Patient Instructions* Vi Bay MD - 01/09/2019 3:30 PM EDT For the facial rash: Rx: hydrocortisone 2.5% ointment: Apply twice daily to the affected around the nose and eyelids forup to 5 days, then switch to: Rx: ketoconazole 2% cream: Apply twice daily to the affected around the nose and eyelids. Sensitive Skin Care You have sensitive skin that require you to avoid many products that touch your skin. It is very important to follow these instructions. STOP ALL current products that touch your skin. This includes liquid and bar soap, shampoo and conditioner, lotions and creams, laundry soap. They will give you a rash Try your hardest to stick to the following products to reduce the chances of your rash being due toa contact allergen: Soap Use Dove Sensitive Skin bar soap. Avoid liquid cleansers. Exceptions: - CeraVe Hydrating Cleanser - Cetaphil Gentle Skin Cleanser for all skin types - Free & Clear Liquid Cleanser for Sensitive Skin Shampoo - Free & Clear Shampoo Hair Conditioner - Cleure Replenishing Conditioner - DHS Conditioning Rinse with Panthenol Hair Styling Products (Oelwein & Gel) - Free & Clear Hair [place] (Soft Hold and Firm Hold) - Cleure Hair Styling Gel - Medium Hold Moisturizer - Cream - CeraVe Moisturizing cream (DR. BAY's FAVORITE) - CeraVe Renewing SA cream - Vanicream Moisturizing Skin Cream Moisturizer - Lotion - CeraVe Facial Moisturizing Lotion A.M. - CeraVe Moisturizing Lotion - CeraVe Facial Moisturizing Lotion P.M. - CeraVe Renewing Lotion - Cetaphil Oil Control Moisturizer SPF 30 - Vanicream Lite Lotion for Sensitive Skin Sunscreen - Blue Lizard Colombian Sunscreen Sensitive SPF 30+ - COTZ Sunscreen (SPF-30 and SPF 40) Deodorant - Certain Dri Antiperspirant Roll-On for Excessive Perspiration - Old Spice Classic Deodorant Stick Fresh - Old Spice Classic Deodorant Stick Original Toothpaste - Ian [facility] Natural (Fluoride-Free and Anticavity Fluoride) Toothpaste for Children, Silly [place] - VMV Hypoallergenics Essence Skin-Saving, Simple-Gentle Toothpaste, VMV [facility] Lip [place] - Vaseline Lip Therapy Hand Drilling Machine Runner - [employer] Quik-Care Waterless Antimicrobial Foaming Hand Rub Shaving Cream & Gel - Vanicream Shave Cream Baby Wipes Earth 's Best TenderCare Chlorine Free Baby Wipes Seventh Generation Chlorine Free Baby Wipes Laundry Detergent Tide Ultra Free & Gentle Powder Laundry Detergent NOTES ON THESE SKIN CARE PRODUCTS These are a few notes which can be very helpful to people struggling with dermatitis (or eczema): -The hypoallergenic skin product diet on this handout outlines products which I have included because they do not contain any of the most common ingredients that can be a cause of skin allergy. The list of is small and limited. The list is based on my experience interviewing and testing many allergic patients and time reviewing labels of products and learning about the importance of allergy. These allergens are well documented and reported in the medical literature as the most common sources ofcontact type allergy. Some of the ingredients are truly uncommon sources of allergy, though among patients with dermatitis or eczema, they are among the most common chemicals to which a person may be allergic. This skin diet does not eliminate all contact allergens, but it does a good job of eliminating the ones most commonly identified. -Just because a product like a lotion or a cream states on the label hypoallergenic it does not mean that such a product can't cause allergy. Even some ingredients considered hypoallergenic (or less apt to cause allergy) by the tube building machine operator will in some individual be a source of allergy. -Even using a product which does contain an ingredient to which you are unknowingly allergic can worsen or aggravate your skin problem, and keep it going another several weeks. Therefore, only STRICTadherence to the SKIN DIET, using only the products on the list if needed, will be likely to helpresolve your problem if allergy is a cause or important aggravating factor. -Testing for allergy is possible with patch testing. Patch testing may be recommended by your doctor to further evaluate the cause of your rash. For these recommendations to be successful you should: 1. Use only those products on the list that you feel you need, unless otherwise advised by your doctor. 2. Limit your use of skin products. If a moisturizer is needed, the thicker one is better. The mosteffective moisturizer feels greasy and is messy. If this is unacceptable, choose a product recommended in the cream or lotion category. Some people find using a greasy product at night, and a lotion or cream during the day is more acceptable. 3. If you are prescribed a medication, use your medication as advised by your doctor. Rub it in well. It is best to apply it at least one time a day after your skin has absorbed some water from bathing. Pat dry after bath or shower and apply your medication. 4. Follow-up with your doctor if your skin problem fails to resolve or improve. documented in this encounter Progress Notes * Vi Bay MD - 01/09/2019 3:30 PM EDT Images from the original note were not included. DERMATOLOGY - NEW PATIENT NOTE Date of service: 01/09/2019 Giselle Leon : 1955, 63 y.o. Chief Complaint Patient presents with ??? Rash HPI: Giselle Leon is a 63 y.o. female self-referred with the following concerns: PMH notable for SLE on HCQ. Rash on the face since September 2018. Patient states this rash is very itchy, mainly affects the area around the nose. Bumpy. A physician friend prescribed oral ABX, name unknown, which helped w rash. Then patient started using Metrogel 0.075% which belonged to her father. This helped somewhat. Using coconut oil for moisturizing. Using make-up. No nail slovak. Also complains of neuropathic itch -- which she's currently taking gabapentin. Prescribed by her PCP? Unclear. Relevant Skin History: - Okay to leave detailed message with results? 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 hydroxychloroquine (PLAQUENIL) 200 mg tablet 200mg, PO, Twice daily (Patient taking differently: 200mg three times a week) ??? ibuprofen (ADVIL;MOTRIN) 800 mg tablet (Patient taking differently: BID) ??? levothyroxine (SYNTHROID) 112 mcg tablet (Patient taking differently: 150mg) ??? gabapentin (NEURONTIN) 600 mg tablet 300 MG = 1/2 Tablet(s), PO, Twice daily (Patient taking differently: 600mg AM; 1200-1800mg PM) ??? venlafaxine (EFFEXOR XR) 150 mg 24 hr capsule No current facility-administered medications for this visit. Allergies: Allergies Allergen Reactions ??? Shellfish Derived CIS - Hives ??? Chloridamine [Chlorpheniramine Maleate] Review of Systems: - General: Feels well. - Skin: No other skin concerns. Examination: - Constitutional: Patient was alert, well-appearing and in no noticeable distress. - Skin: Skin examination of the focused exam of the face, fingers, and hands. - A female nurse was present and on standby during my examination. Diagnosis/Skin findings/Assessment/Plan: # Seborrheic dermatitis: Yellowish scales in the nasolabial folds and perinasal area. Mild erythemaof the upper eyelids. Fingernails normal. -Discussed with the patient the etiology of this condition which is a genetic and environmental interplay, consisted of inflammation to likely a fungal rahel. Treatment is often with Head and Shoulder or other anti-dandruff shampoo for mild cases, or ketoconazole (anti-fungal) shampoo for more severe cases. The condition is benign but chronic. If major irritation occurs, a short course of topicalsteroid may be used. - Rx: hydrocortisone 2.5% ointment: Apply twice daily to the affected around the nose and eyelids for up to 5 days, then switch to: - Rx: ketoconazole 2% cream: Apply twice daily to the affected around the nose and eyelids. - Sensitive Skin care handout given today # Neuropathic pruritus Discussed briefly the treatment modality which includes SSRIs, phototherapy, doxepin. Itch currently well-controlled on gabapentin. Will defer changing therapy at this time -- will address the sebderm first. RTC: 6-8 weeks for denzel derm. Note initiated by Randa Reynolds LPN. I, Randa Reynolds LPN, have performed the documentation for this encounter in the presence of and acting as a scribe for Vi Bay MD. I performed the services which were documented by the scribe, and I agree with the accuracy of the documentation in this encounter. Reviewed and signed by Vi Bay MD Resident in Dermatology [facility] Patient seen in conjunction with staff millstone cleaner: Alejo Friedman MD Section of Dermatology [facility] Level of Resident Supervision: Direct Supervision (The supervising physician is physically present with the resident and patient). * Alejo Friedman III, MD - 01/09/2019 3:30 PM EDT I directly supervised Dr. Matt Bay during this office visit. He presented the history and physicalexam to me. I then saw and examined this patient with Dr. Bay. We reviewed the history and pertinent details and I confirmed the physical findings. I agree with the details of the history and physical exam as documented in Dr. Bay's note. ALEJO FRIEDMAN III, MD Staff Physician documented in this encounter Plan of Treatment Not on file documented as of this encounter Visit Diagnoses Diagnosis Seborrheic dermatitis- Primary Seborrheic dermatitis, unspecified Neuropathic pruritus Other specified pruritic conditions documented in this encounter Care Teams Fire Official Relationship Specialty Start Date End Date Shirley Nash MD [address] [place] [address] PCP - General 09/16/10 documented as of this encounter
--- OUTSIDE RECORDS SUMMARY | 2024-06-05 02:37 | XMS_ITS | Encounter Summary ---
Author Organization [facility] Address [address] [place] [address] Care Team Providers Care Manager Proposal Name Role Phone Unavailable Primary Care Provider Unavailabl e Encounter Details Date Type Department Care Team (Late st Contact Info) Description 12/15/2000 Results Only [facility] - Maple conversion [address] [place] [address] Domenic Robison MD [address] [place] [address] Social History Tobacco Use Types [...] Date/Time Associated Diagnosis Comments SURGICAL PATHOLOGY Routine 12/15/2000 0:00 EST documented in this encounter Results * SURGICAL PATHOLOGY (12/15/2000 0:00 EST) Pathology Report: SURGICAL PATHOLOGY REPORT Reports generated via electronic interface contain original data; however they are lacking the format of the original report. Caution should be taken when reading/interpreting unformatted reports. Name: ? TYRELL GANDARA ? Accession #: ? [id number] ? : ? 1955 (Age: 45) ??F ? Collect Date: ? 12/15/2000 ? Location: ? [facility] ? Receive Date: ? 12/16/2000 ? Provider: DOMENIC ROBISON MD Copy to: FABIANO CORREA MD ? Final Pathologic Diagnosis: A. ?Endometrium, biopsy: 1. ?Simple hyperplasia. ??See comment. 2. ?Extensive stromal breakdown and tubal metaplasia. B. ?Cervix, 10 o' clock, biopsy: 1. ?Mild chronic cervicitis. Comment: ? No cytologic atypia is identified. ??Selected slides have been reviewed at the intradepartmental consultation conference. ??(Dr. Louis) Document reviewed and electronically signed by: Estee Louis MD Report ??Date: 12/20/2000 17:58 By the signature above, the attending physician certifies that he/she has personally conducted a gross and/or microscopic examination of the described specimens and rendered or confirmed the above diagnosis. Specimen(s) Received: A. ?Endometrial bx (#1) B. ?Cx bx (#2) Clinical History: ? Visible cervical cyst; AUB ??no hormones Gross Description: ? Received in formalin labelled Edward and endo bx are multiple abrams-red slightly mucoid soft tissue fragments aggregating 2.5 x 2.5 x 0.4 cm. ??The specimen is entirely submitted as (A1) and (A2). Received in formalin labelled Edward and cervical bx at 10 o' clock is a gee-white irregular 0.5 x 0.3 x 0.2 cm soft tissue fragment. ??The specimen is entirely submitted as (B). ??(Kirill Stoll)/luis eduardo End of Report [facility] 12/15/2000 12/16/2000 15: 29 EST Domenic Robison MD PATHOLOGY ORDERABLES Performing Organization Address City/State/[facility] Co de Phone Number [facility] [address] [place] [address] documented in this encounter Visit Diagnoses Not on filedocumented in this encounter
--- OUTSIDE RECORDS SUMMARY | 2024-06-05 02:37 | XMS_ITS | Encounter Summary ---
Author Organization [facility] Address [address] [place] [address] Care Team Providers Care Rn Neonatal Name Role Phone Unknown, Provider Primary Care Provider Encounter Details Date Type Department Care Team (Late st Contact Info) Description 07/07/[address] Results [address] [facility] [phone] Enoch Payton, DO [address] [facility] [address] [place], [place] [id number] Social History Tobacco Use Types Packs/Day Years Used Date Smoking Tobacco: Never Assessed Sex and Gender Information Value Date Recorded Sex Assigned at Not on file Gender Identity Not on file Sexual Orientation Not on file documented as of this encounter Plan of Treatment Not on file documented as of this encounter Procedures Procedure Name Priority Date/Time Associated Diagnosis Comments SURGICAL PATHOLOGY Routine 07/07/2017 8:51 EDT documented in this encounter Results * SURGICAL PATHOLOGY (07/07/2017 8:51 EDT) Pathology Report: SURGICAL PATHOLOGY REPORT Reports generated via electronic interface contain original data; however they are lacking the format of the original report. Caution should be taken when reading/interpret ing unformatted reports. Name: ? TYRELL GANDARA ? Accession #: ? [id number] ? : ? 1955 (Age: 61) ??F ? Collect Date: ? 07/07/2017 ? Location: ? [facility] ? Receive Date: ? 07/07/2017 ? Provider: ENOCH PAYTON DO Copy to: CAMERON SAUCEDO MD ? Final Pathologic Diagnosis: A. 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 B. 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 C. 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 D. 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 Document reviewed and electronically signed by: MARI MULLER MD Report ??Date: 07/09/2017 16:17 By the signature above, the attending physician certifies that he/she has personally conducted a gross and/or microscopic examination of the described specimens and rendered or confirmed the above diagnosis. Specimen(s) Received: A. ??Ascending colon bxs B. ??Transverse colon bxs C. ??Sigmoid bxs D. ??Rectal bxs Clinical History: Screening for colon cancer; melanosis coli, hx of colitis, mild on previous colonoscopy, asymptomatic Gross Description: A. ?Received in formalin labelled with proper patient identification (initials N, J) and ascending colon bx are two fragments of abrams-brown tissue measuring 0.3 cm and 0.4 cm in greatest dimension. The specimens are submitted entirely in A1. B. ?Received in formalin labelled with proper patient identification (initials N, J) and transverse colon bx are two fragments of abrams-brown tissue measuring 0.7 cm and 0.9 cm in greatest dimension. The specimens are submitted entirely in B1. C. ?Received in formalin labelled with proper patient identification (initials N, J) and sigmoid biopsies are three fragments of abrams-brown tissue ranging from 0.2-0.5 cm in greatest dimension. The specimens are submitted entirely in C1. D. ?Received in formalin labelled with proper patient identification (initials N, J) and rectal biopsies are two fragments of abrams-brown tissue measuring 0.3 cm and 0.4 cm in greatest dimension. The specimens are submitted entirely in D1. TARIQ Chino (ASCP) 07/08/2017 9:39 AM End of Report [facility] 07/07/2017 8:51 EDT 07/07/2017 8:51 EDT Enoch Payton DO PATHOLOGY ORDER ERIC [facility] [address] [place] [address] documented in this encounter Visit Diagnoses Not on filedocumented in this encounter Care Teams Rn Neonatal Relationship Specialty Start Date End Date Unknown, Provider, PCP - General 08/24/13 documented as of this encounter
--- OUTSIDE RECORDS SUMMARY | 2024-06-05 02:37 | XMS_ITS | Encounter Summary ---
Author Organization [facility] Address [address] [place] [address] Care Team Providers Care Puller Out Name Role Phone Unavailable Primary Care Provider Unavailabl e Encounter Details Date Type Department Care Team (Late st Contact Info) Description 07/13/2001 Results Only [facility] - [facility] [address] [place] [address] Domenic Robison MD [address] [place] [address] Social History Tobacco Use Types [...] Date/Time Associated Diagnosis Comments SURGICAL PATHOLOGY Routine 07/13/2001 0:00 EDT documented in this encounter Results * SURGICAL PATHOLOGY (07/13/2001 0:00 EDT) Pathology Report: SURGICAL PATHOLOGY REPORT Reports generated via electronic interface contain original data; however they are lacking the format of the original report. Caution should be taken when reading/interpreti ng unformatted reports. Name: ? TYRELL GANDARA ? Accession #: ? [id number] ? : ? 1955 (Age: 45) ??F ? Collect Date: ? 07/13/2001 ? Location: ? [facility] ? Receive Date: ? 07/13/2001 ? Provider: DOMENIC ROBISON MD Copy to: FABIANO PADGETT MD ? Final Pathologic Diagnosis: ? Uterine wall, endometrial biopsy: - Endometrial polyp with inactive glands. Document reviewed and electronically signed by: NOEL BOUDREAUX MD Report ??Date: 07/15/2001 17:00 By the signature above, the attending physician certifies that he/she has personally conducted a gross and/or microscopic examination of the described specimens and rendered or confirmed the above diagnosis. Specimen(s) Received: ? Base of uterine wall lesion Clinical History: ? Bx with fragment of endometrial polyp Gross Description: ? Received in formalin labelled Edward and uterine wall bx are multiple abrams-red irregular soft tissue fragments measuring 0.5 x 0.3 x 0.2 cm. ??The specimen is entirely submitted in one cassette. ??(Kirill Carreon)/luis eduardo End of Report [facility] 07/13/2001 07/13/2001 15: 39 EDT Domenic Robison MD PATHOLOGY ORDERABLES [facility] [address] [place] [address] documented in this encounter Visit Diagnoses Not on filedocumented in this encounter
--- OUTSIDE RECORDS SUMMARY | 2024-06-05 02:37 | XMS_ITS | Encounter Summary ---
Author Organization [facility] Address [address] [place] [address] Care Team Providers Care Sink Cutter Name Role Phone Unknown, Provider Primary Care Provider Encounter Details Date Type Department Care Team (Late st Contact Info) Description 07/10/2020 Lab Requisition [facility] Pathology & Laboratory Medicine - [facility] [address] [place] [address] Outr Resulting Lab, Provider Social History Tobacco [...] Procedure Name Priority Date/Time Associated Diagnosis Comments HIGH SENSITIVITY C-REACTIVE PROTEIN (CARDIOVASCULAR DISEASE) Routine 07/10/2020 10:20 EDT documented in this encounter Results * HIGH SENSITIVITY C-REACTIVE PROTEIN (CARDIOVASCULAR DISEASE) (07/10/2020 10:20 EDT) High Sensitivity CRP 0.78 See Note mg/L 07/10/2020 17:14 EDT [facility] Comment: Reference Range: ??Source: The [place] [employer] Clinical Practice Recommendations, 2003 ??Low Risk: ? <1.0 mg/L ??Average Risk: ?? 1.0 - 3.0 mg/L ??High Risk: ?>3.0 mg/L ??Indeterminate*: >10.0 mg/L ??*May be an indication of another source of inflammation or infection Blood VENOUS BLOOD / Unknown 07/10/2020 10:20 EDT 07/10/2020 17:00 EDT Provider Outr Resulting Lab CHEMISTRY & BLOOD GAS ORDERABLES Performing Organization Address City/State/[facility] Co de Phone Number [facility] [address] [place] [address] documented in this encounter Visit Diagnoses Not on filedocumented in this encounter Care Teams Sink Cutter Relationship Specialty Start Date End Date Unknown, Provider, PCP - General 08/24/13 documented as of this encounter
--- OUTSIDE RECORDS SUMMARY | 2024-06-05 02:37 | XMS_ITS | Encounter Summary ---
Author Organization [facility] Address [address] [place] [address] Care Team Providers Care Burn Crew Member Name Role Phone Unavailable Primary Care Provider Unavailabl e Encounter Details Date Type Department Care Team (Late st Contact Info) Description 08/16/2000 Results Only [facility] - Maple conversion [address] [place] [address] Kristyn Baez, CHAS Social History Tobacco Use Types Packs/Day Years Used Date Smoking Tobacco: Never Assessed Sex and Gender Information Value Date Recorded Sex Assigned at Not on file Gender Identity Not on file Sexual Orientation Not on file documented as of this encounter Plan of Treatment Not on file documented as of this encounter Procedures Procedure Name Priority Date/Time Associated Diagnosis Comments CYTOPATHOLOGY Routine 08/16/2000 0:00 EDT documented in this encounter Results * CYTOPATHOLOGY (08/16/2000 0:00 EDT) Pathology Report: CYTOPATHOLOGY REPORT Reports generated via electronic interface contain original data; however they are lacking the format of the original report. Caution should be taken when reading/interpreti ng unformatted reports. Name: ? TYRELL GANDARA ? Accession #: ? [id number] : ? 1955 (Age: 45) ??F ?Collect Date: ? 08/16/2000 Location: ? [facility] ? Receive Date: ? 08/18/2000 Provider: ?KRISTYN BAEZ NP Copy to: ? Specimen/Source: ?ThinPrep Pap Test, Cervix/Endocervix Last Menstrual Period: ? 07/29/00 ? SPECIMEN ADEQUACY ? Satisfactory for evaluation. GENERAL CATEGORIZATION ? Within Normal Limits ? Document reviewed and electronically signed by: ? TESSA Wiggins(ASCP) ? Report Date: ??08/25/2000 14:25 End of Report [facility] 08/16/2000 08/18/2000 Kristyn Baze NP PATHOLOGY ORDERABLES [facility] [address] [place] [address] documented in this encounter Visit Diagnoses Not on filedocumented in this encounter
--- OUTSIDE RECORDS SUMMARY | 2024-06-05 02:37 | XMS_ITS | Encounter Summary ---
Author Organization [facility] Address [address] [place] [address] Care Team Providers Care Child Welfare Worker Name Role Phone Unknown, Provider Primary Care Provider Encounter Details Date Type Department Care Team (Latest Contact Info) Description 07/07/2017 18:30 EDT - 07/07/2017 23:59 EDT Hospital Encounter [address] [address] Unknown, Provider, Discharge Disposition: Home or Self Care Social History Tobacco Use Types Packs/Day Years Used Date Smoking Tobacco: Never Assessed Sex and Gender Information Value Date Recorded Sex Assigned at Not on file Gender Identity Not on file Sexual Orientation Not on file documented as of this encounter Discharge Disposition Disposition Code Departure Means Destination Home or Self Shelter documented in this encounter Plan of Treatment Not on file documented as of this encounter Visit Diagnoses Not on filedocumented in this encounter Care Teams Child Welfare Worker Relationship Specialty Start Date End Date Unknown, Provider, PCP - General 08/24/13 documented as of this encounter
--- OUTSIDE RECORDS SUMMARY | 2024-06-05 02:37 | XMS_ITS | Encounter Summary ---
Author Organization [facility] Address [address] [place] [address] Care Team Providers Care Health Therapist Name Role Phone Unavailable Primary Care Provider Unavailabl e Encounter Details Date Type Department Care Team (Late st Contact Info) Description 08/21/2013 Results Only [facility] Laboratory Services - [facility] ([facility]) [address] [place], [place] [phone] Sidney Ramires MD [address] [place], [place] [id number] Social History Tobacco Use Types Packs/Day Years Used Date Smoking Tobacco: Never Assessed Sex and Gender Information Value Date Recorded Sex Assigned at Not on file Gender Identity Not on file Sexual Orientation Not on file documented as of this encounter Plan of Treatment Not on file documented as of this encounter Procedures Procedure Name Priority Date/Time Associated Diagnosis Comments SURGICAL PATHOLOGY Routine 08/21/2013 8:33 EDT documented in this encounter Results * SURGICAL PATHOLOGY (08/21/2013 8:33 EDT) Pathology Report: SURGICAL PATHOLOGY REPORT Reports generated via electronic interface contain original data; however they are lacking the format of the original report. Caution should be taken when reading/interpreti ng unformatted reports. Name: ? TYRELL GANDARA ? Accession #: ? [id number] ? : ? 1955 (Age: 58) ??F ? Collect Date: ? 08/21/2013 ? Location: ? [facility] ? Receive Date: ? 08/22/2013 ? Provider: SIDNEY RAMIRES MD Copy to: CAMERON SAUCEDO MD ? Final Pathologic Diagnosis: GALLBLADDER, CHOLECYSTECTOMY: - ??Cholelithiasis. - ??One reactive lymph node. - ??Resection margin viable. Document reviewed and electronically signed by: TELLO HEATH MD Report ??Date: 08/23/2013 14:42 By the signature above, the attending physician certifies that he/she has personally conducted a gross and/or microscopic examination of the described specimens and rendered or confirmed the above diagnosis. Specimen(s) Received: Gallbladder Clinical History: Biliary colic Gross Description: ? Received in formalin labelled with proper patient identification (initials N, J) and gallbladder is an intact gallbladder (8.0 x 2.5 x 2.5 cm) with an attached segment of cystic duct (0.6 cm in length x 0.3 cm in diameter). A abrams-brown cystic duct lymph node (0.3 x 0.2 x 0.2 cm) is present. ? The serosa is abrams-green and smooth. The mucosa is green and velvety and the wall is 0.2 cm in thickness. The cystic duct lumen is patent. The cystic duct margin is inked blue. ??The gallbladder lumen is completely filled by innumerable intact and fragmented yellow choleliths (0.1-0.7 cm in diameter). ? Two exhibit display representative sections, the inked en face cystic duct margin and the cystic duct lymph node are submitted in cassette 1. Glenna Moreno 08/22/2013 09:45 AM End of Report [facility] 08/21/2013 8:33 EDT 08/22/2013 8:33 EDT Sidney Ramires MD PATHOLOGY ORDERABLES Performing Organization Address City/State/[facility] Co de Phone Number [facility] [address] [place] [phone] documented in this encounter Visit Diagnoses Not on filedocumented in this encounter
--- OUTSIDE RECORDS SUMMARY | 2024-06-05 02:37 | XMS_ITS | Clinical Summary ---
Author Organization [facility] [place] [address] Care Team Providers Care Activities Attendant Name Role Phone Shirley Nash MD Primary Care Provider [phone] Allergies Active Allergy Reactions Criticality Noted Date Comments Chlorpheniramine Maleate 01/09/2019 Shellfish Derived Medium CIS - Hives Medications Medication Sig Dispensed Refills Start Date End Date Status hydroxychloroquine (PLAQUENIL) 200 mg tablet 200mg, PO, Twice daily 05/29/2009 Active ibuprofen (ADVIL;MOTRIN) 800 mg tablet 05/29/2009 Active levothyroxine (SYNTHROID) 112 mcg tablet 05/29/2009 Active gabapentin (NEURONTIN) 600 mg tablet 300 MG = 1/2 Tablet(s), PO, Twice daily 05/29/2009 Active venlafaxine (EFFEXOR XR) 150 mg 24 hr capsule 05/29/2009 Active hydrocortisone 2.5 % Ointment Apply twice daily to the affected around the nose and eyelids for up to 5 days 30 g 01/09/2019 Active ketoconazole (NIZORAL) 2 % Cream Apply twice daily to the affected around the nose and eyelids. 60 g 1 01/09/2019 Active Social History Tobacco Use Types Packs/Day Years Used Date Smoking Tobacco: Former Cigarettes Q uit: 2008 Smokeless Tobacco: Never Sex and Gender Information Value Date Recorded Sex Assigned at Not on file Gender Identity Not on file Sexual Orientation Not on file Plan of Treatment Health Maintenance Due Date Last Done Comments CT Colonography 1955 Colonoscopy 1955 Colorectal Cancer Screening 1955 FIT DNA 1955 FIT 1955 Sigmoidoscopy (10 year) with FIT yearly 1955 Sigmoidoscopy 1955 Hepatitis C Screening 1971 Tdap adult 1972 Tetanus vaccine 1972 Breast Cancer Share Decision Needed 1993 Breast Cancer screening 1993 Zoster vaccine (1 of 2) 2003 Advance Directive 2008 Bone Density Scan 2018 Pneumoccocal Vaccine: 65+ (1 of 1 - PCV) 2018 Covid-19 Vaccine (1 - 2022- season) 2023 Influenza (Flu) vaccine (1 o f 1 - Influenza standard series) 06/25/2024 Care Teams Activities Attendant Relationship Specialty Start Date End Date Shirley Nash MD [address] [place], [place] [phone] PCP - General 09/16/10
--- OUTSIDE RECORDS SUMMARY | 2024-06-05 02:37 | XMS_ITS | Encounter Summary ---
Author Organization [facility] Address [address] [place] [address] Care Team Providers Care Supervisor Paper Coating Name Role Phone Unavailable Primary Care Provider Unavailabl e Encounter Details Date Type Department Care Team (Late st Contact Info) Description 08/11/2012 Results Only [facility] - [facility] ([facility]) [address] [place], [place] [phone] Shirley Nash MD [address] [place], [place] [phone] Social History Tobacco Use Types Packs/Day Years Used Date Smoking Tobacco: Never Assessed Sex and Gender Information Value Date Recorded Sex Assigned at Not on file Gender Identity Not on file Sexual Orientation Not on file documented as of this encounter Plan of Treatment Not on file documented as of this encounter Procedures Procedure Name Priority Date/Time Associated Diagnosis Comments PAP TEST- RESULT ONLY Routine 08/11/2012 0:00 EDT documented in this encounter Results * PAP TEST- RESULT ONLY (08/11/2012 0:00 EDT) Pathology Report: CYTOPATHOLOGY REPORT Reports generated via electronic interface contain original data; however they are lacking the format of the original report. Caution should be taken when reading/interpreti ng unformatted reports. Name: ? TYRELL GANDARA ? Accession #: ? [id number] : ? 1955 (Age: 57) ??F ?Collect Date: ? 08/11/2012 Location: ? [facility] ? Receive Date: ? 08/15/2012 Provider: ?SHIRLEY NASH MD Copy to: ? Specimen/Source: ?Pap Test, Cervix/Endocervix, ThinPrep Imaging System with manual evaluation Last Menstrual Period: ? 2007 Hormonal/Contracep tive Status: ? Yes: Estring ? SPECIMEN ADEQUACY ? Satisfactory for Evaluation - transformation zone component absent GENERAL CATEGORIZATION ? Negative for Intraepithelial Lesion or Malignancy ? Document reviewed and electronically signed by: ? Jessa Morales, TESSA(ASCP)(IAC) ? Report Date: ??08/18/2012 11:45 End of Report [facility] 08/11/2012 08/15/2012 Shirley Nash MD PATHOLOGY ORDERABLES Performing Organization Address City/State/[facility] Co de Phone Number [facility] [address] [place] [address] documented in this encounter Visit Diagnoses Not on filedocumented in this encounter
--- OUTSIDE RECORDS SUMMARY | 2024-06-05 02:37 | XMS_ITS | Encounter Summary ---
Author Organization [facility] Address [address] [place] [address] Care Team Providers Care Power Plant Supervisor Name Role Phone Unavailable Primary Care Provider Unavailabl e Encounter Details Date Type Department Care Team (Late st Contact Info) Description 09/26/2007 Results Only [facility] - Maple conversion [address] [place] [address] [place] [address] [place] [address] Social History Tobacco Use Types Packs/Day [...] Date/Time Associated Diagnosis Comments SURGICAL PATHOLOGY Routine 09/26/2007 0:00 EST documented in this encounter Results * SURGICAL PATHOLOGY (09/26/2007 0:00 EST) Pathology Report: SURGICAL PATHOLOGY REPORT Reports generated via electronic interface contain original data; however they are lacking the format of the original report. Caution should be taken when reading/interpreting unformatted reports. Name: ? TYRELL GANDARA ? Accession #: ? [id number] ? : ? 1955 (Age: 52) ??F ? Collect Date: ? 09/26/2007 ? Location: ? [facility] ? Receive Date: ? 09/27/2007 ? Provider: SIDNEY RAMIRES MD Copy to: CAMERON SAUCEDO MD ? Final Pathologic Diagnosis: A. ?Stomach, antrum, biopsy: 1. ?Antral mucosa with focal reactive epithelial changes. 2. ? No Helicobacter pylori-like microorganisms identified on H&E-stained sections. B. ?Stomach, body, biopsy: 1. ?Fundic mucosa with mild chronic active gastritis. 2. ? Immunostaining for Helicobacter pylori is negative. ??See comment. C. ?Colon, hepatic flexure, random biopsies: 1. ?Moderate active colitis. ??See comment. 2. ? Melanosis coli. ?? Comment: ? The findings in (C) have been discussed with Dr. Sidney Ramires by telephone. Patient Support Specialist sections of (C) have been reviewed at intradepartmental consultation conference. ??In addition to melanosis coli, (C) shows active crypt inflammation with rare epithelioid granulomas/giant cells in the lamina propria. Unequivocal evidence of chronicity is not seen. ??The findings are most compatible with acute colitis. ??Differential considerations include acute self-limited colitis, infectious etiologies, ischemia, and adverse drug effect. Correlation with the clinical impression is necessary. ??(Dr. Michelle)/luis eduardo Immunohistochemical staining was performed on sections prepared from formalin-fixed paraffin embedded tissue. ??Positive and negative controls stained appropriately. Block ?Antibody (Clone) ? Result ? B ?Helicobacter pylori (polyclonal, [facility]) ?Negative ? NOTE: ??One or more of the reagents used in immunohistochemical testing in this case may not have been cleared or approved by the U.S. Food and Drug Administration (FDA). ??The FDA has determined that such clearance or approval is not necessary. ??These tests are used for clinical purposes. ??They should not be regarded as investigational or for research. ??These reagents' ??performance characteristics have been determined by [facility]. ??This laboratory is certified under the Clinical Laboratory Improvement Amendments of 1988 (CLIA-88) as qualified to perform high complexity clinical laboratory testing. ?? Document reviewed and electronically signed by: VELMA MICHELLE MD Report ??Date: 09/29/2007 15:11 By the signature above, the attending physician certifies that he/she has personally conducted a gross and/or microscopic examination of the described specimens and rendered or confirmed the above diagnosis. Specimen(s) Received: A. ?Bx antrum B. ? Bx gastric body C. ? Bx random colon, hepatic flexure Clinical History: ? Colonoscopy; gastroscopy; screening reflux Gross Description: ? Received in Hollande's fixative labelled Edward and bx antrum is a 0.3 x 0.2 x 0.2 cm biopsy. ??The specimen is submitted intact as (A). Received in Hollande's fixative labelled Edward and bx gastric body is a 0.2 x 0.2 x 0.2 cm biopsy. ??The specimen is submitted intact as (B). Received in Hollande's fixative labelled Edward and bx random colon, hepatic flexure are two biopsies measuring 0.2 cm in diameter and 0.4 x 0.1 x 0.1 cm. Submitted in toto as (C). ??(SERGIO Guzman)/luis eduardo End of Report [facility] 09/26/2007 09/27/2007 9:5 7 EST Sidney Ramires MD PATHOLOGY ORDERABLES [facility] [address] [place] [address] documented in this encounter Visit Diagnoses Not on filedocumented in this encounter
--- OUTSIDE RECORDS SUMMARY | 2024-06-05 02:37 | XMS_ITS | Encounter Summary ---
Author Organization [facility] Address [address] [place] [address] Care Team Providers Care Blueprint Developer Name Role Phone Unavailable Primary Care Provider Unavailabl e Encounter Details Date Type Department Care Team (Late st Contact Info) Description 05/24/2001 Results Only [facility] - Maple conversion [address] [place] [address] Domenic Robison MD [address] [place] [address] Social History Tobacco Use Types [...] Date/Time Associated Diagnosis Comments SURGICAL PATHOLOGY Routine 05/24/2001 0:00 EDT documented in this encounter Results * SURGICAL PATHOLOGY (05/24/2001 0:00 EDT) Pathology Report: SURGICAL PATHOLOGY REPORT Reports generated via electronic interface contain original data; however they are lacking the format of the original report. Caution should be taken when reading/interpreting unformatted reports. Name: ? TYRELL GANDARA ? Accession #: ? [id number] ? : ? 1955 (Age: 45) ??F ? Collect Date: ? 05/24/2001 ? Location: ? [facility] ? Receive Date: ? 05/25/2001 ? Provider: DOMENIC ROBISON MD Copy to: FABIANO PADGETT MD ? Final Pathologic Diagnosis: ? Endometrium, biopsy: - Fragment of endometrial polyp. ??See comment. ? - Separate fragments of weakly proliferative endometrium with tubal metaplasia. ? - Fragments of benign endocervical tissue with microglandular hyperplasia. Comment: This case has been reviewed at the intradepartmental consultation conference. (Dr. Oneil)/[facility] Document reviewed and electronically signed by: MARK SINGLETARY MD Report ??Date: 05/31/2001 05:56 By the signature above, the attending physician certifies that he/she has personally conducted a gross and/or microscopic examination of the described specimens and rendered or confirmed the above diagnosis. Specimen(s) Received: ? Endometrial bx Clinical History: ? H/O hyperplasia Rx with progesterone Gross Description: ? Received in formalin labelled Edward and endo bx is 2.0 x 1.5 x 0.6 cm aggregate of pale abrams soft tissue and red-brown blood clot. ??The fragments have a minimal amount of mucus. ??The specimens are entirely submitted in cassettes (A1) and (A2). ??(Breanne Lott)/[facility] End of Report [facility] 05/24/2001 05/25/2001 15: 54 EDT Domenic Robison MD PATHOLOGY ORDERABLES [facility] [address] [place] [address] documented in this encounter Visit Diagnoses Not on filedocumented in this encounter
--- OUTSIDE RECORDS SUMMARY | 2024-06-05 02:37 | XMS_ITS | Encounter Summary ---
Author Organization [facility] Address [address] [place] [address] Care Team Providers Care Welder/Fitter Name Role Phone Unavailable Primary Care Provider Unavailabl e Encounter Details Date Type Department Care Team (Late st Contact Info) Description 06/13/2009 Orders Only [facility] Services - [facility] [place] [address] [place], [place] [id number] Shirley Nash MD [address] [place], [place] [id number] Social History Tobacco Use Types Packs/Day Years Used Date Smoking Tobacco: Never Assessed Sex and Gender Information Value Date Recorded Sex Assigned at Not on file Gender Identity Not on file Sexual Orientation Not on file documented as of this encounter Plan of Treatment Not on file documented as of this encounter Procedures Procedure Name Priority Date/Time Associated Diagnosis Comments CYTOPATHOLOGY Routine 06/13/2009 0:00 EDT documented in this encounter Results * CYTOPATHOLOGY (06/13/2009 0:00 EDT) Pathology Report: CYTOPATHOLOGY REPORT ? Reports generated via electronic interface contain original data; ? however they are lacking the format of the original report. ? Caution should be taken when reading/interpreti ng unformatted reports. ? Name: ? TYRELL GANDARA ? Accession #: ? [id number] ? : ? 1955 (Age: 53) ??F ?Collect Date: ? 06/13/2009 ? Location: ? [facility] ? Receive Date: ? 06/14/2009 ? Provider: ?SHIRLEY NASH MD ? Copy to: ? Specimen/Source: ?Pap Test, Cervix/Endocervix, ThinPrep Imaging System ? with manual evaluation ? Last Menstrual Period: ? 5 yrs ? Hormonal/Contracep tive Status: ? Yes: Estring ? SPECIMEN ADEQUACY ? Satisfactory for Evaluation ? - transformation zone component present ? - scant squamous epithelial component ? GENERAL CATEGORIZATION ? Negative for Intraepithelial Lesion or Malignancy ? Document reviewed and electronically signed by: ? Jessa Morales, CT(ASCP)(IAC) ? Report Date: ??06/21/2009 10:27 ? End of Report ? [facility] 06/13/2009 06/14/2009 Shirley Nash MD PATHOLOGY ORDERABLES [facility] [address] [place] [address] documented in this encounter Visit Diagnoses Not on filedocumented in this encounter
--- OUTSIDE RECORDS SUMMARY | 2024-06-05 02:37 | XMS_ITS | Encounter Summary ---
Author Organization [facility] Address [address] [place] [address] Care Team Providers Care Rake Operator Name Role Phone Unknown, Provider Primary Care Provider [phone] Encounter Details Date Type Department Care Team (Late st Contact Info) Description 02/11/2023 Lab Requisition [facility] Pathology & Laboratory Medicine - [facility] [address] [place] [address] Outr Resulting Lab, Provider Social History Tobacco [...] Procedure Name Priority Date/Time Associated Diagnosis Comments SPEP, INCLUDES QUANTITATION OF MONOCLONAL SPIKE PERFORMABLE Today 02/10/2023 15:20 EDT SPEP, INCLUDES QUANTITATION OF MONOCLONAL SPIKE Routine 02/10/2023 15:20 EDT PROTEIN, TOTAL Today 02/10/2023 15:20 EDT documented in this encounter Results * SPEP, INCLUDES QUANTITATION OF MONOCLONAL SPIKE PERFORMABLE (02/10/2023 15:20 EDT) Albumin % 63.3 55.8 - 66.1 % 02/12/2023 12:39 EDT [facility] Albumin g/dL 4.4 3.6 - 5.2 g/dL 02/12/2023 12:39 [facility] Alpha-1 % 4.3 2.9 - 4.9 % 02/12/2023 12:39 [facility] Alpha-1 g/dL 0.30 0.15 - 0.40 g/dL 02/12/2023 12:39 [facility] Alpha-2 % 9.1 7.1 - 11.8 % 02/12/2023 12:39 [facility] Alpha-2 g/dL 0.60 0.50 - 1.00 g/dL 02/12/2023 12:39 [facility] Beta % 11.6 8.4 - 13.1 % 02/12/2023 12:39 [facility] Beta g/dL 0.80 0.60 - 1.20 g/dL 02/12/2023 12:39 [facility] Gamma % 11.7 11.1 - 18.8 % 02/12/2023 12:39 [facility] Gamma g/dL 0.80 0.60 - 1.60 g/dL 02/12/2023 12:39 [facility] SPEP Comment No apparent monoclonal protein seen on serum electrophoresis 02/12/2023 12:39 [facility] Comment:See scanned/suppleme ntary report. Total Protein 7.0 6.3 - 8.2 g/dL 02/12/2023 12:39 [facility] Blood VENOUS BLOOD / Unknown 02/10/2023 15:20 EDT 02/11/2023 19:05 EDT Provider Outr Resulting Lab CHEMISTRY & BLOOD GAS ORDERABLES [facility] [address] [place] [address] * PROTEIN, TOTAL (02/10/2023 15:20 EDT) Blood VENOUS BLOOD / Unknown 02/10/2023 15:20 EDT 02/11/2023 19:05 EDT Provider Outr Resulting Lab CHEMISTRY & BLOOD GAS ORDERABLES [facility] [address] [place] [address] documented in this encounter Visit Diagnoses Not on filedocumented in this encounter Care Teams Rake Operator Relationship Specialty Start Date End Date Unknown, Provider, PCP - General 08/24/13 documented as of this encounter
--- OUTSIDE RECORDS SUMMARY | 2024-06-05 02:37 | XMS_ITS | Clinical Summary ---
Author Organization [facility] Address [address] [place] [address] Care Team Providers Care Photographic Equipment Inspector Name Role Phone Unknown, Provider Primary Care Provider Social History Tobacco Use Types Packs/Day Years Used Date Smoking Tobacco: Never Assessed Interpersonal Safety Answer Date Record ed Physically Hurt Never 05/26/2020 Verbally Threaten Not on file 05/26/2020 Sex and Gender Information Value Date Recorded Sex Assigned at Not on file Gender Identity Not on file Sexual Orientation Not on file Plan of Treatment Health Maintenance Due Date Last Done Comments Hepatitis C Screen 1955 RSV Immunization ( o r 60+ Years) (1 - 1-dose 60+ series) 2013 Fall Risk Screening 2018 COVID-19 Vaccine (2022-24 season) 2023 Care Teams Photographic Equipment Inspector Relationship Specialty Start Date End Date Unknown, Provider, PCP - General 08/24/13
--- NOTE | 2024-06-05 08:30 | DI.MRI_ITS ---
Exam(s) MR UPPER JOINT LT WO EXAM: MR UPPER JOINT LT WO CLINICAL HISTORY: L SHOULDER INJURY,traumatic tear lt rotator cuff, s46.012a TECHNIQUE: Multiplanar multisequence MRI of the shoulder was performed. COMPARISON: CR XR SHOULDER LT COMPLETE 2+V from 05/31/2024 FINDINGS: There is some motion artifact on some sequences. MARROW:There is no evidence of fracture, Hill-Sachs deformity, nor ominous osseous lesions. GLENOHUMERAL JOINT: There is some generalized moderate articular cartilage loss. No osteophytes. No degenerative subarticular cysts in the osseous glenoid noted. Tiny degenerative subarticular cysts are seen in the lateral humeral head subjacent to the infraspinatus insertion tendon site. There is a small joint effusion. This extends down the biceps tendon sheath also subcoracoid extension where there is some mild synovial thickening.. There are no loose intra-articular bodies evident. Incidentally noted is a cystic appearing structure in the ipsilateral axilla up against the chest wal l measuring 1.5 x 1.2 x 1.3 cm. ROTATOR CUFF MECHANISM: AC JOINT/ACROMIUM: Mild degenerative changes in the AC joint. Mild impingement at this level.. There is no evidence of os acromiale. Supraspinatus: Mild increased signal in the tendon proximal to the foot pad insertion. There does no t appear to be a full-thickness tear nor retraction musculotendinous junction and no muscle atrophy e vident. There is no fluid in the subacromial bursa space Infraspinatus: Mild focal tendinitis signal. No significant tear. No muscle atrophy. Teres Minor: Intact. No evidence of tear nor muscle atrophy. Subscapularis/anterior cuff: Summed tendinitis signal but no high-grade tear. No atrophy. BICEPS TENDON: Tendon exhibits normal position within the intertubercular groove. There is some flui d in the biceps tendon sheath within the intertubercular groove but no evidence of tear of the biceps tendon. No loose bodies in the tendon sheath. No evidence of tear. LABRUM: Motion artifact. A there is mild increased signal seen within the superior labrum posterior to the biceps insertion site. Possible SLAP tear but difficult to assess accurately. The posterior labrum appears intact. There is motion blurring in this peer aspect of the anterior labrum. There i s no obvious tear of the anteroinferior labrum. No bony Bankart findings. Inferior labrum appears i ntact. Inferior glenohumeral ligament appears intact. There is no evidence of paralabral cyst. QUADRILATERAL SPACE: No evidence of mass in the region of the axillary nerve and dorsal circumflex hu meral vessels. Visualized triceps muscle at this level appears unremarkable. IMPRESSION: 1. Study interpretation is somewhat limited by motion artifact. 2. Mild findings in the rotator cuff mechanism as described above but no evidence of full-thickness r otator cuff tendon tear. No muscle atrophy evident. There is some impingement upon the supraspinatu s at the AC joint level although there are no downgoing osteophytes evident at this level. 3. 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 Also small -moderate size joint effusion which also extends down the long head biceps tendon sheath. There are no loose intra-articular bodies evident. 4. Some multilevel labral irregularity difficult to assess with motion artifact but suspect an eleme nt of some tearing at the anterosuperior labrum and in the superior labrum posterior to the biceps te ndon attachment. There is no evidence of paralabral cyst. 5. No evidence of muscle atrophy DATA REPOSITORY:
== END 2024-06-05 02:56 ==
LOC: DI 02:36
PROVIDERS: PCP Family Medicine; Visit Provider Student in an Organized Health Care Education/Training Program
DX: S46.012A Strain of muscle(s) and tendon(s) of the rotator cuff of left shoulder, initial encounter (principal); M19.012 Primary osteoarthritis, left shoulder
CPT/HCPCS: 73221

== ENCOUNTER → 2024-06-14 13:27 | Outpatient (BNVA) | payer MEDICARE, SELFPAY | PROVIDERS: PCP Family Medicine; Referring Provider Family Medicine; Visit Provider Student in an Organized Health Care Education/Training Program | DX: S46.012A Strain of muscle(s) and tendon(s) of the rotator cuff of left shoulder, initial encounter (principal); X58.XXXA Exposure to other specified factors, initial encounter | CPT/HCPCS: 20610; J1010 ==

== ENCOUNTER 2024-08-28 15:20 | Outpatient (CLI) | payer MEDICARE, SELFPAY ==
--- NOTE | 2024-08-28 10:00 | DI.RAD_ITS ---
Exam(s) XR HIP LT AP LAT ONLY EXAM: XR HIP LT AP LAT ONLY CLINICAL HISTORY: ANNUAL F/U L DENY. TECHNIQUE: 2D digital imaging was performed. Two images were obtained. AP and lateral views were ob tained. COMPARISON: CR XR HIP LT COMPLETE AP PELVIS from 09/09/2023 FINDINGS: BONES: There are stable post operative changes of a left total hip replacement present. No fracture or dislocation. JOINTS: The orthopedic hardware is in good position. No evidence of hardware loosening. SOFT TISSUE: Normal. IMPRESSION: Stable left total hip replacement. DATA REPOSITORY: RADIATION DOSE DELIVERED:
== END 2024-08-28 15:21 | disposition home or self-care (01) ==
LOC: DIORS 15:20
PROVIDERS: PCP Family Medicine; Visit Provider Student in an Organized Health Care Education/Training Program
DX: Z47.1 Aftercare following joint replacement surgery (principal); M70.62 Trochanteric bursitis, left hip; Z96.642 Presence of left artificial hip joint
CPT/HCPCS: 99213; 73502

== ENCOUNTER → 2024-09-13 13:02 | Outpatient (BNVA) | payer MEDICARE, SELFPAY | PROVIDERS: PCP Family Medicine; Referring Provider Family Medicine; Visit Provider Student in an Organized Health Care Education/Training Program | DX: M70.62 Trochanteric bursitis, left hip (principal); M76.32 Iliotibial band syndrome, left leg | CPT/HCPCS: 99214 ==

== ENCOUNTER 2024-11-14 22:29 | Outpatient (REF) | payer MEDICARE, SELFPAY ==
--- OUTSIDE RECORDS SUMMARY | 2024-11-14 22:31 | XMS_ITS | Clinical Summary ---
Author Organization [facility] Address [address] [place] [address] Care Team Providers Care Tire Worker Name Role Phone Unknown, Provider MD Primary Care Provider Unava ilable Social History Tobacco Use Types Packs/Day Years Used Date Smoking Tobacco: Never Assessed Interpersonal Safety Answer Date Record ed Physically Hurt Never 05/26/2020 Verbally Threaten Not on file 05/26/2020 Comments Unknown Sex and Gender Information Value Date Recorded Sex Assigned at Not on file Legal Sex Female 18:19 EST Gender Identity Not on file Sexual Orientation Not on file Plan of Treatment Health Maintenance Due Date Last Done Comments Hepatitis C Screen 1955 Fall Risk Screening 2018 COVID-19 Vaccine ( season) 2024 RSV Immunization ( o r 60+ Years) (1 - 1-dose 75+ series) 2028 Care Teams Tire Worker Relationship Specialty Start Date End Date Unknown, Provider, PCP - General 08/24/13
--- OUTSIDE RECORDS SUMMARY | 2024-11-14 22:31 | XMS_ITS ---
Author Organization Unknown [facility]ERGIES [facility] ADVERSE REACTIONS No information ASSESSMENT No information CHIEF COMPLAINT No information MEDICATIONS No information OBJECTIVE DATA No information PHYSICAL EXAMINATION No information TREATMENT PLAN Planned Care Start Date Provider Encounter for Check-up [id number] PROBLEMS No information RESULTS No information REVIEW OF SYSTEMS No information SUBJECTIVE DATA No information VITAL SIGNS No information
--- OUTSIDE RECORDS SUMMARY | 2024-11-14 22:31 | XMS_ITS | Referral Summary ---
Author Organization [facility] Address [address] [place] [address] Care Team Providers Care Projector Operator Name Role Phone Unknown, Provider Primary Care Provider Unava ilable Social History [...] of Treatment Not on file Care Teams Projector Operator Relationship Specialty Start Date End Date Unknown, Provider, PCP - General 08/24/13
--- OUTSIDE RECORDS SUMMARY | 2024-11-14 22:32 | XMS_ITS | Encounter Summary ---
Author Organization [facility] Address [address] [place] [address] Care Team Providers Care Key Filer Name Role Phone Unknown, Provider MD Primary Care Provider Unava ilable Encounter Details Date Type Department Care Team (Late st Contact Info) Description 12/18/2015 Results Only [facility] [phone] Asia Cruz MD [address] [place] [address] Social History Tobacco Use Types Packs/Day Years Used Date Smoking Tobacco: Never Assessed Comments Unknown Sex and Gender Information Value [...] ? TYRELL GANDARA ? Accession #: ? [id number] ? : ? 1955 (Age: 60) ??F [...] unremarkable and averages 1.5 cm in thickness. Rubber Stamp Die Inspector sections are submitted as follows: BLOCK VELOZ 1- ??anterior cervix 2- ??posterior cervix 3-4- ??anterior endomyometrium with a subtle elevation 5- ??posterior endomyometrium Columba POTTER 12/19/2015 9:18 AM End of Report [facility] 12/18/2015 17:0 5 EST 12/18/2015 17:05 EST us Asia Cruz MD PATHOLOGY ORDERABLES Final Resu lt [facility] [address] [place] [address] documented in this encounter Visit Diagnoses Not on filedocumented in this encounter Care Teams Key Filer Relationship Specialty Start Date End Date Unknown, Provider, PCP - General 08/24/13 documented as of this encounter
--- OUTSIDE RECORDS SUMMARY | 2024-11-14 22:32 | XMS_ITS | Encounter Summary ---
Author Organization [facility] Address [address] [place] [address] Care Team Providers Care Scale Technician Name Role Phone Unknown, Provider Primary Care Provider Unava ilable Encounter Details Date Type Department Care Team (Late st Contact Info) Description 02/11/2023 Lab Requisition [facility] Pathology & Laboratory Medicine - [facility] [address] [place], [place] [id number] Outr Resulting Lab, Provider Social History Tobacco [...] 55.8 - 66.1 % 02/12/2023 12:39 EDT [facility] Albumin g/dL 4.4 3.6 - 5.2 g/dL 02/12/2023 12:39 [facility] Alpha-1 % 4.3 2.9 - 4.9 % 02/12/2023 12:39 [facility] Alpha-1 g/dL 0.30 0.15 - 0.40 g/dL 02/12/2023 12:39 [facility] Alpha-2 % 9.1 7.1 - 11.8 % 02/12/2023 12:39 [facility] Alpha-2 g/dL 0.60 0.50 - 1.00 g/dL 02/12/2023 12:39 [facility] Beta % 11.6 8.4 - 13.1 % 02/12/2023 12:39 [facility] Beta g/dL 0.80 0.60 - 1.20 g/dL 02/12/2023 12:39 [facility] Gamma % 11.7 11.1 - 18.8 % 02/12/2023 12:39 [facility] Gamma g/dL 0.80 0.60 - 1.60 g/dL 02/12/2023 12:39 [facility] SPEP Comment No apparent monoclonal protein seen on serum electrophoresis 02/12/2023 12:39 [facility] Comment:See scanned/suppleme ntary report. Total Protein 7.0 6.3 - 8.2 g/dL 02/12/2023 12:39 [facility] Blood VENOUS BLOOD / Unknown 02/10/2023 15:20 EDT 02/11/2023 19:05 EDT us Provider Outr Resulting Lab CHEMISTRY & BLOOD GA S ORDERABLES Final Result [facility] [address] [place] [address] * PROTEIN, TOTAL (02/10/2023 15:20 EDT) Blood VENOUS BLOOD / Unknown 02/10/2023 15:20 EDT 02/11/2023 19:05 EDT us Provider Outr Resulting Lab CHEMISTRY & BLOOD GA S ORDERABLES Final Result [facility] [address] [place] [address] documented in this encounter Visit Diagnoses Not on filedocumented in this encounter Care Teams Scale Technician Relationship Specialty Start Date End Date Unknown, Provider, PCP - General 08/24/13 documented as of this encounter
--- OUTSIDE RECORDS SUMMARY | 2024-11-14 22:32 | XMS_ITS | Encounter Summary ---
Author Organization [facility] Address [address] [place] [address] Care Team Providers Care Swiss Type Screw Machine Operator Name Role Phone Unavailable Primary Care Provider Unavailabl e Encounter Details Date Type Department Care Team (Late st Contact Info) Description 09/26/2007 Results Only [facility] - Maple conversion [address] [place] [address] Sidney Ramires MD [facility] [place] [address] Social History Tobacco Use Types [...] ? TYRELL GANDARA ? Accession #: ? [id number] ? : ? 1955 (Age: 52) ??F [...] discussed with Dr. Sidney Ramires by telephone. Anodizer sections of (C) have been reviewed at [...] ??performance characteristics have been determined by [facility]. ??This laboratory is certified under [...] (C). ??(SERGIO Guzman)/luis eduardo End of Report [facility] 09/26/2007 09/27/2007 9:5 7 EST us Sidney Ramires MD PATHOLOGY ORDERABLES Final Resul t Performing Organization Address City/State/[facility] Co de Phone Number [facility] [address] [place] [address] documented in this encounter Visit Diagnoses Not on filedocumented in this encounter
--- OUTSIDE RECORDS SUMMARY | 2024-11-14 22:32 | XMS_ITS | Encounter Summary ---
Author Organization [facility] Address [address] [place] [address] Care Team Providers Care Senior Counsel Commercial Name Role Phone Unknown, Provider Primary Care Provider Unava ilable Encounter Details Date Type Department Care Team (Latest Contact Info) Description 12/18/2015 6:28 EST - 12/18/2015 23:59 EST Hospital Encounter [address] [address] Unknown, Provider, Discharge Disposition: Home or Self [...] Code Departure Means Destination Home or Self Prison documented in this encounter Plan of Treatment Not on file documented as of this encounter Visit Diagnoses Not on filedocumented in this encounter Care Teams Senior Counsel Commercial Relationship Specialty Start Date End Date Unknown, Provider, PCP - General 08/24/13 documented as of this encounter
--- OUTSIDE RECORDS SUMMARY | 2024-11-14 22:32 | XMS_ITS | Encounter Summary ---
Author Organization [facility] Address [address] [place] [address] Care Team Providers Care Vehicle Dynamics Engineer Name Role Phone Unavailable Primary Care Provider Unavailabl e Encounter Details Date Type Department Care Team (Late st Contact Info) Description 05/24/2001 Results Only [facility] - Maple conversion [address] [place] [address] Domenic Robison MD [address] [place] [address] Social History Tobacco Use Types [...] ? TYRELL GANDARA ? Accession #: ? [id number] ? : ? 1955 (Age: 45) ??F [...] reviewed at the intradepartmental consultation conference. (Dr. Oneil)/[facility] Document reviewed and electronically signed [...] submitted in cassettes (A1) and (A2). ??(Breanne Lott)/[facility] End of Report [facility] 05/24/2001 05/25/2001 15: 54 EDT us Domenic Robison MD PATHOLOGY ORDERABLES Final Resul t [facility] [address] [place] [address] documented in this encounter Visit Diagnoses Not on filedocumented in this encounter
--- OUTSIDE RECORDS SUMMARY | 2024-11-14 22:32 | XMS_ITS | Encounter Summary ---
Author Organization [facility] Address [address] [place] [address] Care Team Providers Care Boring Mill Operator Name Role Phone Unavailable Primary Care Provider Unavailabl e Encounter Details Date Type Department Care Team (Late st Contact Info) Description 12/15/2000 Results Only [facility] - Maple conversion [address] [place] [address] Domenic Robison MD [address] [place] [address] Social History Tobacco Use Types [...] ? TYRELL GANDARA ? Accession #: ? [id number] ? : ? 1955 (Age: 45) ??F [...] [facility] 12/15/2000 12/16/2000 15: 29 EST us Domenic Robison MD PATHOLOGY ORDERABLES Final Resul t [facility] [address] [place] [address] documented in this encounter Visit Diagnoses Not on filedocumented in this encounter
--- OUTSIDE RECORDS SUMMARY | 2024-11-14 22:32 | XMS_ITS | Encounter Summary ---
Author Organization [facility] Address [address] [place] [address] Care Team Providers Care Securities Settlement Processor Name Role Phone Unknown, Provider Primary Care Provider Unava ilable Encounter Details Date Type Department Care Team (Late st Contact Info) Description 07/07/2017 Results Only [facility] [phone] Enoch Payton, DO [address] [facility] [address] [place] [address] Social History Tobacco Use Types [...] ? TYRELL GANDARA ? Accession #: ? [id number] ? : ? 1955 (Age: 61) ??F ? Collect Date: ? 07/07/2017 ? Location: ? [facility] ? Receive Date: ? 07/07/2017 ? Provider: ENOCH PAYTNO DO Copy to: CAMERON SAUCEDO MD ? [...] are submitted entirely in D1. TARIQ Chino ([facility]) 07/08/2017 9:39 AM End of Report [facility] 07/07/2017 8:51 EDT 07/07/2017 8:51 EDT us Enoch Payton DO PATHOLOGY ORDERABLES Fi nal Result [facility] [address] [place] [address] documented in this encounter Visit Diagnoses Not on filedocumented in this encounter Care Teams Securities Settlement Processor Relationship Specialty Start Date End Date Unknown, Provider, PCP - General 08/24/13 documented as of this encounter
--- OUTSIDE RECORDS SUMMARY | 2024-11-14 22:32 | XMS_ITS | Encounter Summary ---
Author Organization [facility] Address [address] [place] [address] Care Team Providers Care Sexer Name Role Phone Unavailable Primary Care Provider Unavailabl e Encounter Details Date Type Department Care Team (Late st Contact Info) Description 07/22/2004 Results Only [facility] - Maple conversion [address] [place] [address] Susie Grossman, [facility] [address] [place] [address] Social History Tobacco Use Types [...] ? TYRELL GANDARA ? Accession #: ? [id number] : ? 1955 (Age: 48) ??F ?Collect Date: ? 07/22/2004 Location: ? [facility] ? Receive Date: ? 07/24/2004 Provider: ?SUSIE GROSSMAN HEALTH PROMOTION SPECIALIST Copy to: ? Specimen/Source: ?ThinPrep Pap Test, Cervix/Endocervix Last Menstrual Period: ? Months ? SPECIMEN ADEQUACY ? Satisfactory for Evaluation - transformation zone component present GENERAL CATEGORIZATION ? Negative for Intraepithelial Lesion or Malignancy ? Document reviewed and electronically signed by: ? Adriano Lopez, TESSA(ASCP) ? Report Date: ??07/29/2004 08:49 End of Report [facility] 07/22/2004 07/24/2004 us Susie Grossman HEALTH PROMOTION SPECIALIST PATHOLOGY ORDERABLES Final Resu lt [facility] [address] [place] [address] documented in this encounter Visit Diagnoses Not on filedocumented in this encounter
--- OUTSIDE RECORDS SUMMARY | 2024-11-14 22:32 | XMS_ITS | Encounter Summary ---
Author Organization [facility] Address [address] [place] [address] Care Team Providers Care Combustion Analyst Name Role Phone Unavailable Primary Care Provider Unavailabl e Encounter Details Date Type Department Care Team (Late st Contact Info) Description 02/15/2001 Results Only [facility] - Maple conversion [address] [place] [address] Domenic Robison MD [address] [place] [address] Social History Tobacco Use Types [...] ? TYRELL GANDARA ? Accession #: ? [id number] ? : ? 1955 (Age: 45) ??F [...] submitted intact as (A1) and (A2). ??(E Clarice-ML)/[facility] End of Report [facility] 02/15/2001 02/16/2001 15: 23 EDT us Domenic Robison MD PATHOLOGY ORDERABLES Final Resul t [facility] [address] [place] [address] documented in this encounter Visit Diagnoses Not on filedocumented in this encounter
--- OUTSIDE RECORDS SUMMARY | 2024-11-14 22:32 | XMS_ITS | Clinical Summary ---
Author Organization [place] [address] Care Team Providers Care Wringer Operator Name Role Phone Shirley Nash MD Primary Care Provider [phone] Allergies Active Allergy Reactions Criticality Noted Date [...] 1955 Sigmoidoscopy 1955 Hepatitis C Screening 1971 Tetanus/Diphtheria/Pertussis Vaccines (1 - Tdap) 08/03 Breast Cancer Share Decision Needed 1993 Breast Cancer screening 1993 Pneumoccocal Vaccine: 50+ (1 of 1 - PCV) 2003 Zoster vaccine (1 of 2) 2003 Advance Directive 2008 Bone Density Scan 2018 Covid-19 Vaccine (1 - 2023- season) 2024 Influenza (Flu) vaccine (1 o f 1 - Influenza standard series) 06/25/2024 Care Teams Wringer Operator Relationship Specialty Start Date End Date Shirley Nash MD [address] [place], [place] [phone] PCP - General 09/16/10
--- OUTSIDE RECORDS SUMMARY | 2024-11-14 22:32 | XMS_ITS | Encounter Summary ---
Author Organization [facility] Address [address] [place] [address] Care Team Providers Care Cannon Pinion Adjuster Name Role Phone Unknown, Provider Primary Care Provider Unava ilable Encounter Details Date Type Department Care Team (Late st Contact Info) Description 07/10/2020 Lab Requisition [facility] Pathology & Laboratory Medicine - [place] [address] [place], [place] [address] Outr Resulting Lab, Provider Social History Tobacco [...] 0.78 See Note mg/L 07/10/2020 17:14 EDT [facility] Comment: Reference Range: ??Source: The [place] Clinical Practice Recommendations, 2003 ??Low Risk: ? <1.0 mg/L ??Average Risk: ?? 1.0 - 3.0 mg/L ??High Risk: ?>3.0 mg/L ??Indeterminate*: >10.0 mg/L ??*May be an indication of another source of inflammation or infection Blood VENOUS BLOOD / Unknown 07/10/2020 10:20 EDT 07/10/2020 17:00 EDT us Provider Outr Resulting Lab CHEMISTRY & BLOOD GA S ORDERABLES Final Result [facility] [address] [place] [address] documented in this encounter Visit Diagnoses Not on filedocumented in this encounter Care Teams Cannon Pinion Adjuster Relationship Specialty Start Date End Date Unknown, Provider, PCP - General 08/24/13 documented as of this encounter
--- OUTSIDE RECORDS SUMMARY | 2024-11-14 22:32 | XMS_ITS | Encounter Summary ---
Author Organization [facility] Address [address] [place] [address] Care Team Providers Care Fur Machine Operator Name Role Phone Unavailable Primary Care Provider Unavailabl e Encounter Details Date Type Department Care Team (Latest Contact Info) Description 08/21/2013 10:04 EDT - 08/21/2013 23:59 EDT Hospital Encounter [address] [address] Unknown, Provider, MD Discharge Disposition: Home or Self Care Social [...] Code Departure Means Destination Home or Self Half-Way documented in this encounter Plan of Treatment Not on file documented as of this encounter Visit Diagnoses Not on filedocumented in this encounter
--- OUTSIDE RECORDS SUMMARY | 2024-11-14 22:32 | XMS_ITS | Encounter Summary ---
Author Organization [facility] Address [address] [place] [address] Care Team Providers Care Brand Planner Name Role Phone Unknown, Provider Primary Care Provider Unava ilable Encounter Details Date Type Department Care Team (Late st Contact Info) Description 07/11/2020 Lab Requisition [facility] Pathology & Laboratory Medicine - [facility] [address] [place], [place] [address] Outr Resulting Lab, Provider Social History Tobacco [...] Factor <8.6 <12.0 IU/mL 07/11/2020 21:24 EDT [facility] Blood VENOUS BLOOD / Unknown 07/10/2020 10:20 EDT 07/11/2020 20:46 EDT us Provider Outr Resulting Lab CHEMISTRY & BLOOD GA S ORDERABLES Final Result [facility] [address] [place] [address] documented in this encounter Visit Diagnoses Not on filedocumented in this encounter Care Teams Brand Planner Relationship Specialty Start Date End Date Unknown, Provider, PCP - General 08/24/13 documented as of this encounter
--- OUTSIDE RECORDS SUMMARY | 2024-11-14 22:32 | XMS_ITS | Encounter Summary ---
Author Organization [facility] Address [address] [place] [address] Care Team Providers Care Dairy Farmworker Name Role Phone Unavailable Primary Care Provider Unavailabl e Encounter Details Date Type Department Care Team (Late st Contact Info) Description 06/13/2009 Orders Only [facility] Laboratory Services - [facility] [address] [place], [place] [phone] Shirley Nash MD [address] [place], [place] [phone] Social History Tobacco Use Types Packs/Day Years [...] reading/interpreti ng unformatted reports. ? Name: ? NICHOL, TYRELL ? Accession #: ? [id number] ? : ? 1955 (Age: 53) ??F [...] of Report ? [facility] 06/13/2009 06/14/2009 us Shirley Nash MD PATHOLOGY ORDERABLES Final Resu lt [facility] [address] [place] [address] documented in this encounter Visit Diagnoses Not on filedocumented in this encounter
--- OUTSIDE RECORDS SUMMARY | 2024-11-14 22:32 | XMS_ITS | Encounter Summary ---
Author Organization [facility] Address [address] [place] [address] Care Team Providers Care Senior Art Director Name Role Phone Unknown, Provider Primary Care Provider Unava ilable Encounter Details Date Type Department Care Team (Latest Contact Info) Description 07/07/2017 18:30 EDT - 07/07/2017 23:59 EDT Hospital Encounter [address] [address] Unknown, Provider, Discharge Disposition: Home or Self [...] Departure Means Destination Home or Self Senior Care documented in this encounter Plan of Treatment Not on file documented as of this encounter Visit Diagnoses Not on filedocumented in this encounter Care Teams Senior Art Director Relationship Specialty Start Date End Date Unknown, Provider, PCP - General 08/24/13 documented as of this encounter
--- OUTSIDE RECORDS SUMMARY | 2024-11-14 22:32 | XMS_ITS | Encounter Summary ---
Author Organization [facility] Address [address] [place] [address] Care Team Providers Care Concrete Form Setter And Finisher Name Role Phone Unavailable Primary Care Provider Unavailabl e Encounter Details Date Type Department Care Team (Late st Contact Info) Description 08/16/2000 Results Only [facility] - Maple conversion [address] [place] [address] Kristyn Baez, BOOKS SALESPERSON Social History Tobacco Use Types Packs/Day Years [...] ? TYRELL GANDARA ? Accession #: ? [id number] : ? 1955 (Age: 45) ??F ?Collect Date: ? 08/16/2000 Location: ? [facility] ? Receive Date: ? 08/18/2000 Provider: ?KRISTYN BAEZ BOOKS SALESPERSON Copy to: ? Specimen/Source: ?ThinPrep Pap Test, Cervix/Endocervix Last Menstrual Period: ? 07/29/00 ? SPECIMEN ADEQUACY ? Satisfactory for evaluation. GENERAL CATEGORIZATION ? Within Normal Limits ? Document reviewed and electronically signed by: ? TESSA Wiggins(ASCP) ? Report Date: ??08/25/2000 14:25 End of Report [facility] 08/16/2000 08/18/2000 us Kristyn Baez NP PATHOLOGY ORDERABLES Final Re sult [facility] [address] [place] [address] documented in this encounter Visit Diagnoses Not on filedocumented in this encounter
--- OUTSIDE RECORDS SUMMARY | 2024-11-14 22:32 | XMS_ITS | Encounter Summary ---
Author Organization [facility] Address [address] [place] [address] Care Team Providers Care Public Relations Manager Name Role Phone Unavailable Primary Care Provider Unavailabl e Encounter Details Date Type Department Care Team (Late st Contact Info) Description 07/13/2001 Results Only [facility] - Maple conversion [address] [place] [address] Domenic Robison MD [address] [place] [address] Social History Tobacco Use Types [...] ? TYRELL GANDARA ? Accession #: ? [id number] ? : ? 1955 (Age: 45) ??F [...] ??(Kirill Carreon)/luis eduardo End of Report [facility] 07/13/2001 07/13/2001 15: 39 EDT us Domenic Robison MD PATHOLOGY ORDERABLES Final Resul t [facility] [address] [place] [address] documented in this encounter Visit Diagnoses Not on filedocumented in this encounter
--- OUTSIDE RECORDS SUMMARY | 2024-11-14 22:32 | XMS_ITS | Encounter Summary ---
Author Organization [facility] Address [address] [place] [address] Care Team Providers Care Cafe Associate Name Role Phone Unavailable Primary Care Provider Unavailabl e Encounter Details Date Type Department Care Team ([facility] st Contact Info) Description 08/11/2012 Results Only [facility] Laboratory Services - [facility] ([facility]) [address] [place], [place] [phone] Shirley Nash MD [address] [place], [place] [phone] Social History Tobacco Use Types Packs/Day Years [...] ? TYRELL GANDARA ? Accession #: ? [id number] : ? 1955 (Age: 57) ??F ?Collect [...] ? Jessa Morales, CT(ASCP)(IAC) ? Report Date: ??08/18/2012 11:45 End of Report [facility] 08/11/2012 08/15/2012 us Shirley Nash MD PATHOLOGY ORDERABLES Final Resu lt [facility] [address] [place] [address] documented in this encounter Visit Diagnoses Not on filedocumented in this encounter
--- OUTSIDE RECORDS SUMMARY | 2024-11-14 22:32 | XMS_ITS | Encounter Summary ---
Author Organization [facility] Address [address] [place] [address] Care Team Providers Care Epic Radiant Analyst Name Role Phone Unavailable Primary Care Provider Unavailabl e Encounter Details Date Type Department Care Team (Late st Contact Info) Description 08/21/2013 Results Only [facility] Laboratory Services - [facility] ([facility]) [address] [place], [place] [phone] Sidney Ramires MD [address] [place] [address] Social History Tobacco Use Types [...] ? TYRELL GANDARA ? Accession #: ? [id number] ? : ? 1955 (Age: 58) ??F [...] choleliths (0.1-0.7 cm in diameter). ? Two passenger representative sections, the inked en face cystic duct margin and the cystic duct lymph node are submitted in cassette 1. Glenna Moreno 08/22/2013 09:45 AM End of Report [facility] 08/21/2013 8:33 EDT 08/22/2013 8:33 EDT us Sidney Ramires MD PATHOLOGY ORDERABLES Final Resul t Performing Organization Address City/State/[facility] Co de Phone Number [facility] [address] [place] [address] documented in this encounter Visit Diagnoses Not on filedocumented in this encounter
--- OUTSIDE RECORDS SUMMARY | 2024-11-14 22:32 | XMS_ITS | Encounter Summary ---
Author Organization [facility] [place] [address] Care Team Providers Care Bsa Officer Name Role Phone Shirley Nash MD Primary Care Provider Reason for Visit * Reason Comments Rash Encounter Details Date Type Department Care Team (Late st Contact Info) Description 01/09/2019 3:30 PM EDT Office Visit Dermatology at [facility] [address] [place] [phone] Vi Bay MD Seborrheic dermatitis (Primary Dx); Neuropathic pruritus Social [...] Conditioning Rinse with Panthenol Hair Styling Products ([place] Fort & Gel) - Free & Clear Hair [place] (Soft Hold and Firm Hold) - Cleure [...] for Sensitive Skin Sunscreen - Blue Lizard New Zealander Sunscreen Sensitive SPF 30+ - COTZ Sunscreen (SPF-30 and SPF 40) Deodorant - Certain Dri Antiperspirant Roll-On for Excessive Perspiration - Old Spice Classic Deodorant Stick Fresh - Old Spice Classic Deodorant Stick Original Toothpaste - [facility] Natural (Fluoride-Free and Anticavity Fluoride) Toothpaste for Children, Silly [place] - VMV Hypoallergenics Essence Skin-Saving, Simple-Gentle Toothpaste, VMV USA Lip Troy - Vaseline Lip Therapy Hand Deportation Officer - [employer] Quik-Care Waterless Antimicrobial Foaming Hand Rub Shaving Cream & Gel - Vanicream Shave Cream Baby Wipes [place] [employer]s Best TenderCare Chlorine Free Baby Wipes [...] less apt to cause allergy) by the wet machine tender will in some individual be a source [...] oil for moisturizing. Using make-up. No nail bolivian. Also complains of neuropathic itch -- which [...] by Vi Bay MD Resident in Dermatology [facility] Patient seen in conjunction with staff colorectal surgeon: Alejo Friedman MD Section of Dermatology [facility] Level of Resident Supervision: Direct [...] conditions documented in this encounter Care Teams Bsa Officer Relationship Specialty Start Date End Date Shirley Nash MD [address] [place] [address] PCP - General 09/16/10 documented as of this encounter
--- OUTSIDE RECORDS SUMMARY | 2024-11-14 22:32 | XMS_ITS | Encounter Summary ---
Author Organization [facility] Address [address] [place] [address] Care Team Providers Care Computer Service Technician Name Role Phone Unavailable Primary Care Provider Unavailabl e Encounter Details Date Type Department Care Team ([facility] st Contact Info) Description 06/17/2006 Results Only [facility] - Maple conversion [address] [place] [address] Shirley Nash MD [address] [place], [place] [id number] Social History Tobacco Use Types Packs/Day Years [...] ? TYRELL GANDARA ? Accession #: ? [id number] : ? 1955 (Age: 50) ??F ?Collect Date: ? 06/17/2006 Location: ? [facility] ? Receive Date: ? 06/21/2006 Provider: ?SHIRLEY NASH MD Copy to: ? Specimen/Source: ?ThinPrep Pap Test, Cervix/Endocervix, processed on MacheenPrep Imaging System, with manual evaluation Last Menstrual Period: ? 2 yrs ? SPECIMEN ADEQUACY ? Satisfactory for Evaluation - assessment of transformation zone component not applicable ( e.g. atrophy, vaginal sample, hysterectomy) GENERAL CATEGORIZATION ? Negative for Intraepithelial Lesion or Malignancy ? Document reviewed and electronically signed by: ? Jessa Morales, TESSA(ASCP)(IAC) ? Report Date: ??06/22/2006 16:04 End of Report [facility] 06/17/2006 06/21/2006 us Shirley Nash MD PATHOLOGY ORDERABLES Final Resu lt [facility] [address] [place] [address] documented in this encounter Visit Diagnoses Not on filedocumented in this encounter
[2024-11-14 22:41] LABS: Abs Immature Grans 0.01 10^3/uL (0.0-0.06); Absolute Eosinophil Count 0.11 10^3/uL (0.0-0.7); Absolute Lymphocyte Count 1.77 10^3/uL (1.2-3.4); Absolute Monocyte Count 0.65 10^3/uL (0.1-0.8); Absolute Neutrophil Count 4.03 10^3/uL (1.2-6.7); Basophils % 1.5 %; Eosinophils % 1.6 %; HCT 44.4 % (36.0-46.0); HGB 14.6 g/dL (11.2-15.7); Immature Grans % 0.1 %; Lymphocytes % 26.5 %; MCH 32.1 pg (27.0-33.0); MCHC 32.9 % (32.0-36.0); MCV 98 fL (80-95); MPV 9.8 fL (8.0-11.0); Monocytes % 9.7 %; Neutrophils % 60.6 %; Platelet Count 377 10^3/uL (130-400); RBC 4.55 10^6/uL (3.93-5.22); RDW 11.7 % (11.7-14.6); RDW-SD 42.1 fL; WBC 6.67 10^3/uL (4.4-10.8)
[2024-11-14 22:56] LABS: Hemoglobin A1C 5.7 % (<5.7)
[2024-11-14 23:01] LABS: ALT 25 U/L (14-59); AST 19 U/L (15-37); Albumin 4.2 g/dL (3.4-5.0); Alkaline Phosphatase 74 U/L (46-116); Anion Gap 6.3 mmol/L (3-11); BUN 22 mg/dL (7-18); CO2 30.7 mmol/L (21.0-32.0); Calcium 9.8 mg/dL (8.5-10.1); Calculated LDL 151 mg/dL (<100); Chloride 104 mmol/L (98-107); Cholesterol 242 mg/dL (<200); Estimated GFR 60.23 (mL/min/1.73m2); Glucose 84 mg/dL (74-106); HDL Cholesterol 66 mg/dL (40-60); Potassium 4.8 mmol/L (3.5-5.1); Sodium 141 mmol/L (136-145); TSH 0.79 uIU/mL (0.36-3.74); Total Protein 7.2 g/dL (6.4-8.2); Triglyceride 127 mg/dL (<150)
== END 2024-11-14 22:30 | disposition home or self-care (01) ==
LOC: NCHCN 22:29
PROVIDERS: PCP Family Medicine; Visit Provider Family Medicine
DX: Z00.00 Encounter for general adult medical examination without abnormal findings (principal)
CPT/HCPCS: 80053; 80061; 83036; 84443; 85025

== ENCOUNTER 2025-01-10 02:06 | Outpatient (CLI) | payer MEDICARE, SELFPAY ==
--- NOTE | 2025-01-10 11:22 | DI.CTLCSR_ITS ---
Exam(s) CT CHEST LUNG CANCER SCREEN EXAM: CT CHEST LUNG CANCER SCREEN CLINICAL HISTORY: Ex-smoker, Z87.891-personal h/o nicotine dependence TECHNIQUE: Imaging Protocol: Axial computed tomography images with coronal and sagittal reformatted images were created and reviewed. Lung Computer Aided Detection (CAD) was utilized. COMPARISON: CT CT CHEST LUNG CANCER SCREEN from 01/10/2024 FINDINGS: Tracheobronchial tree: Patent where visualized. No bronchiectasis. Pulmonary parenchyma: No consolidation or dominant measurable mass. No architectural distortion. Lung Nodules: The 6 mm nodule associated with the right minor fissure is unchanged. Mediastinum and Keila: No dominant adenopathy or fluid collection. The esophagus is unremarkable. Lymph nodes: Unremarkable. Pleura: No effusion or pneumothorax. Heart: The heart is not dilated. Single-vessel coronary artery calcification is present. No pericard ial effusion. Aorta: Thoracic aorta non-dilated.Atherosclerotic calcification is present. Upper abdomen: Unremarkable. Soft Tissues: Unremarkable. Bones: Within normal limits. IMPRESSION: Stable 6 mm perifissural right lung nodule. No new pulmonary nodules. Lung RADS Cat 2 - Benign Appearance / Behavior: Nodules with a very low likelihood of becoming a clin ically active cancer due to size or lack of growth Lung-RADS 1.0 CATEGORIES: Category 0 - Prior chest CT exam(s) being located for comparison. Category 1 - Annual screening in 12 months. No nodules or definitely benign nodules. Category 2 - Annual screening in 12 months. Benign appearance. Nodules with low likelihood of becomin g active cancer. Category 3 - 6-month follow-up. Probably benign. Short-term follow-up suggested. Nodules with low lik elihood of becoming active cancer. Category 4A - 3-month follow-up and CT/PET if >8 mm in size. Suspicious finding. Findings which requi re additional testing. Category 4B - Findings which require additional testing and tissue sampling. Suspicious finding. Category 4X - Category 3 or 4 nodules with additional features or imaging findings that increases the suspicion of malignancy. Modifier S- Potentially clinically significant finding. (Non lung cancer) RADIATION DOSE DELIVERED: 29.61mGy.cm Total DLP 29.61mGy.cmTotal DLP DATA REPOSITORY: All CT scans at this facility are submitted to the National Radiology Data Registry (NRDR) Dose Index Registry (DIR) with the [employer] (ACR). RADIATION OPTIMIZATION: All CT scans at this facility use at least one of these dose optimization te chniques: automated exposure control; mA and/or kV adjustment per patient size (includes targeted exa ms where dose is matched to clinical indication); or iterative reconstruction.
--- NOTE | 2025-01-10 11:41 | DI.MAMMO_ITS ---
Exam(s) MAMMO SCREENING EXAM: MAMMO SCREENING CLINICAL HISTORY: Screening, Z12.31 TECHNIQUE: Mammograms were interpreted according to the usual protocol including computer analysis w fitkit CAD system, tomosynthesis and C-view imaging. COMPARISON: 2015 through 2023 FINDINGS: The breasts are composed of scattered fibroglandular densities, Breast Density category B. No suspicious masses or suspicious microcalcifications are seen. No skin thickening or abnormal axillary lymph nodes are seen. There has been no significant change from prior exams. IMPRESSION: BI-RADS Category 1, Negative mammogram Yearly screening mammography is recommended. Breast Density - Category B, scattered fibroglandular densities. A negative radiographic report should not delay biopsy if a dominant or clinically suspicious mass is present. Up to ten percent of cancers are not identified on mammography. A negative report may reinforce clinical impression. Adenosis and dense breasts may obscure an underlying neoplasm. False positive reports average 6 to 10%. Patient will receive a letter notifying them of these results.
== END 2025-01-10 02:26 ==
LOC: DI 02:06
PROVIDERS: PCP Family Medicine; Visit Provider Family Medicine
DX: Z87.891 Personal history of nicotine dependence (principal); Z12.2 Encounter for screening for malignant neoplasm of respiratory organs; Z12.31 Encounter for screening mammogram for malignant neoplasm of breast; R91.1 Solitary pulmonary nodule
CPT/HCPCS: 71271; 77063; 77067

== ENCOUNTER 2025-02-26 02:38 | Outpatient (CLI) | payer MEDICARE, SELFPAY ==
[2025-02-26 11:54] LABS: Abs Immature Grans 0.02 10^3/uL (0.0-0.06); Absolute Basophil Count 0.07 10^3/uL (0.0-0.2); Absolute Eosinophil Count 0.12 10^3/uL (0.0-0.7); Absolute Lymphocyte Count 1.47 10^3/uL (1.2-3.4); Absolute Monocyte Count 0.42 10^3/uL (0.1-0.8); Absolute Neutrophil Count 3.58 10^3/uL (1.2-6.7); Basophils % 1.2 %; Eosinophils % 2.1 %; HCT 39.9 % (36.0-46.0); HGB 13.3 g/dL (11.2-15.7); Immature Grans % 0.4 %; Lymphocytes % 25.9 %; MCHC 33.3 % (32.0-36.0); MCV 96 fL (80-95); MPV 9.1 fL (8.0-11.0); Monocytes % 7.4 %; Platelet Count 296 10^3/uL (130-400); RBC 4.15 10^6/uL (3.93-5.22); RDW 11.4 % (11.7-14.6); RDW-SD 40.2 fL; WBC 5.68 10^3/uL (4.4-10.8)
[2025-02-26 12:08] LABS: Hemoglobin A1C 5.2 % (<5.7)
[2025-02-26 12:22] LABS: ALT 27 U/L (14-59); AST 20 U/L (15-37); Alkaline Phosphatase 65 U/L (46-116); Anion Gap 7.7 mmol/L (3-11); BUN 20 mg/dL (7-18); Bilirubin, Total 0.4 mg/dL (0.2-1.0); CO2 30.3 mmol/L (21.0-32.0); Calcium 9.4 mg/dL (8.5-10.1); Calculated LDL 66 mg/dL (<100); Chloride 104 mmol/L (98-107); Cholesterol 147 mg/dL (<200); Estimated GFR 60.23 (mL/min/1.73m2); Glucose 94 mg/dL (74-106); HDL Cholesterol 59 mg/dL (>or=50); Potassium 4.1 mmol/L (3.5-5.1); Sodium 142 mmol/L (136-145); TSH 0.04 uIU/mL (0.36-3.74); Total Protein 7.1 g/dL (6.4-8.2); Triglyceride 112 mg/dL (<150)
== END 2025-02-26 02:39 | disposition home or self-care (01) ==
PROVIDERS: PCP Family Medicine; Visit Provider Family Medicine
DX: Z00.00 Encounter for general adult medical examination without abnormal findings (principal)
CPT/HCPCS: 36415; 80053; 80061; 83036; 84443; 85025

== ENCOUNTER 2025-07-05 16:13 | Outpatient (REF) | payer MEDICARE, SELFPAY ==
[2025-07-05 20:12] LABS: TSH 1.88 uIU/mL (0.36-3.74)
== END 2025-07-05 16:14 | disposition home or self-care (01) ==
LOC: NCHCN 16:13
PROVIDERS: PCP Family Medicine; Visit Provider Family Medicine
DX: E03.9 Hypothyroidism, unspecified (principal)
CPT/HCPCS: 84439; 84443

== ENCOUNTER 2025-07-23 03:30 | Outpatient (CLI) | payer MEDICARE, SELFPAY ==
--- NOTE | 2025-07-23 | DI.US_ITS ---
Exam(s) US THYROID EXAM: US THYROID CLINICAL HISTORY: MASS LUMP NECK R22.1 PROMINENT THYROID RT SIDE PT FELT LUMP ON LT THYROID. TECHNIQUE: Ultrasound thyroid performed using standard protocol. COMPARISON: US ABDOMEN ULTRASOUND (P) from 07/27/2013 FINDINGS: This patient has apparently been on thyroid replacement medication for years. She has not had any prior thyroid imaging RIGHT THYROID LOBE: Measures 1.1 cm AP x 1.0 cm wide x 3.7 cm craniocaudal No discernible nodules in the small right lobe ISTHMUS: No nodule LEFT THYROID LOBE: Measures 0.7 cm AP x 0.9 wide x 3.4 cm craniocaudal There are no discernible nodules in the small left lobe. LYMPH NODES: There is no significant adenopathy. IMPRESSION: 1. Diminutive thyroid gland with no evidence of nodules nor cysts. 2. No significant lymphadenopathy. DATA REPOSITORY:
== END 2025-07-23 03:50 ==
LOC: DI 03:30
PROVIDERS: PCP Family Medicine; Visit Provider Family Medicine
DX: R21 Rash and other nonspecific skin eruption (principal)
CPT/HCPCS: 76536